=== PATIENT | male | born 1955 | race Caucasian/White ===

== ENCOUNTER 2018-04-14 02:29 | Emergency (ER) | payer SELFPAY ==
[~2018-04-14] VITALS: Ht 180.3 cm; Wt 75.0 kg
[2018-04-14 02:39] VITALS: BP 154/98; PULSE 88; RESP 20; TEMP 97.4; O2SAT 97
[2018-04-14 03:39] LABS: AUTOMATED NEUTROPHIL # 2.4 TH/MM3 (1.8-7.7); BASOPHIL # 0.1 TH/MM3 (0-0.2); BASOPHIL % 0.9 % (0.0-2.0); EOSINOPHIL # 0.3 TH/MM3 (0-0.4); EOSINOPHIL % 4.7 % (0.0-4.0); HEMATOCRIT 25.5 % (39.0-51.0); HEMOGLOBIN 7.1 GM/DL (13.0-17.0); LYMPH % 49.5 % (9.0-44.0); LYMPHOCYTE # 3.1 TH/MM3 (1.0-4.8); MEAN CELL VOLUME 58.9 FL (80.0-100.0); MEAN CORPUSCULAR HEMOGLOBIN 16.5 PG (27.0-34.0); MEAN PLATELET VOLUME 8.5 FL (7.0-11.0); MONO % 6.4 % (0.0-8.0); MONOCYTE # 0.4 TH/MM3 (0-0.9); NEUT % 38.5 % (16.0-70.0); PLATELET COUNT 376 TH/MM3 (150-450); RED BLOOD COUNT 4.32 MIL/MM3 (4.50-5.90); RED CELL DISTRIBUTION WIDTH 22.2 % (11.6-17.2); WHITE BLOOD COUNT 6.2 TH/MM3 (4.0-11.0)
[2018-04-14 03:42] LABS: MEAN CORPUSCULAR HGB CONC 27.9 % (32.0-36.0)
[2018-04-14 03:45] LABS: LACTIC ACID SEPSIS PROTOCOL 2.9 mmol/L (0.4-2.0)
[2018-04-14 03:50] LABS: ALBUMIN 2.9 GM/DL (3.4-5.0); AST (GOT) 41 U/L (15-37); BICARBONATE 24.8 MEQ/L (21.0-32.0); BLOOD UREA NITROGEN 7 MG/DL (7-18); CALCIUM 8.2 MG/DL (8.5-10.1); CHLORIDE 105 MEQ/L (98-107); CREATININE 0.67 MG/DL (0.60-1.30); GLOMERULAR FILTRATION RATE 120 ML/MIN (>89); GLUCOSE,RANDOM 92 MG/DL (74-106); SODIUM (NA) 141 MEQ/L (136-145)
[2018-04-14 03:53] LABS: ALKALINE PHOSPHATASE 89 U/L (45-117); ALT (GPT) 36 U/L (12-78); TOTAL BILIRUBIN ADULT 0.3 MG/DL (0.2-1.0); TOTAL PROTEIN 6.7 GM/DL (6.4-8.2)
--- NOTE | 2018-04-14 04:15 | PD ---
HPI Chief Complaint: Pain: Acute or Chronic Time Seen by Provider: 03:03 Travel History International Travel<30 days: No Contact w/Intl Traveler<30days: No Traveled to known affect area: No History of Present Illness HPI 62-year-old male patient presents to the ER today for right foot swelling and pain, he states that he has had problems with the pain in his right foot for several months, states that it had been ran over by his body, and that was several weeks ago, but he is coming in today because it is increasing in pain. He denies any fevers, shortness of breath, or other issues. Pain is noted to be aching and 5 out of 10. He had initially said he has chest pain but now he is telling me he has none. Modifying Factors: None Associated Signs & Symptoms: Right foot pain for several weeks, worsening, 5 out of 10 Risk Factors: None PFSH Past Medical History Diminished Hearing: Yes Hypertension: Yes Immunizations Current: Yes Tetanus Vaccination: Unknown Influenza Vaccination: No Past Surgical History Other Surgery: Yes (RIGHT FOOT SURGERY) Social History Alcohol Use: Yes Tobacco Use: Yes Substance Use: No Allergies-Medications (Allergen,Severity, Reaction): Coded Allergies: No Known Allergies (Unverified , 04/14/18) Reported Meds & Prescriptions Reported Meds & Active Scripts Active No Active Prescriptions or Reported Medications Review of Systems Except as stated in HPI: all other systems reviewed are Neg Physical Exam Narrative GENERAL: Well-developed elderly male patient currently in mild distress. Awake and oriented 3. SKIN: Focused skin assessment warm/dry. HEAD: Atraumatic. Normocephalic. EYES: Pupils equal and round. No scleral icterus. No injection or drainage. ENT: No nasal bleeding or discharge. Mucous membranes pink and moist. NECK: Trachea midline. No JVD. CARDIOVASCULAR: Regular rate and rhythm. No murmur appreciated. RESPIRATORY: No accessory muscle use. Clear to auscultation. Breath sounds equal bilaterally. GASTROINTESTINAL: Abdomen soft, non-tender, nondistended. Hepatic and splenic margins not palpable. MUSCULOSKELETAL: No obvious deformities. No clubbing. No cyanosis. There is significant pitting edema of both feet but more pronounced in the right. There is notable erythema especially of the right big toe, fairly tender to palpation with obvious underlying cellulitis. There is also a dark eschar over the medial part of the nail. No underlying subungual hematoma. There appears to be a paronychia there. NEUROLOGICAL: Awake and alert. No obvious cranial nerve deficits. Motor grossly within normal limits. Normal speech. PSYCHIATRIC: Appropriate mood and affect; insight and judgment normal. Data Data Last Documented VS Vital Signs Date Time Temp Pulse Resp B/P (MAP) Pulse Ox O2 Delivery O2 Flow Rate FiO2 04/14/18 04:31 97 Room Air 04/14/18 04:31 04/14/18 04:22 81 16 04/14/18 02:39 97.4 Orders Orders Sepsis Workup Initiated (04/14/18 ) Complete Blood Count With Diff (04/14/18 03:03) Comprehensive Metabolic Panel (04/14/18 03:03) Lactic Acid Sepsis Protocol (04/14/18 03:03) Blood Culture (04/14/18 03:03) Blood Glucose (04/14/18 03:03) Ecg Monitoring (04/14/18 03:03) Iv Access Insert/Monitor (04/14/18 03:03) Oximetry (04/14/18 03:03) Oxygen Administration (04/14/18 03:03) Foot, Complete ([id number]) (04/14/18 03:03) Sulfamet-Trimeth Ds 800-160 Mg (Bactrim (04/14/18 04:45) Labs Laboratory Tests Test 04/14/18 03:20 White Blood Count 6.2 TH/MM3 Red Blood Count 4.32 MIL/MM3 Hemoglobin 7.1 GM/DL Hematocrit 25.5 % Mean Corpuscular Volume 58.9 FL Mean Corpuscular Hemoglobin 16.5 PG Mean Corpuscular Hemoglobin Concent 27.9 % Red Cell Distribution Width 22.2 % Platelet Count 376 TH/MM3 Mean Platelet Volume 8.5 FL Neutrophils (%) (Auto) 38.5 % Lymphocytes (%) (Auto) 49.5 % Monocytes (%) (Auto) 6.4 % Eosinophils (%) (Auto) 4.7 % Basophils (%) (Auto) 0.9 % Neutrophils # (Auto) 2.4 TH/MM3 Lymphocytes # (Auto) 3.1 TH/MM3 Monocytes # (Auto) 0.4 TH/MM3 Eosinophils # (Auto) 0.3 TH/MM3 Basophils # (Auto) 0.1 TH/MM3 CBC Comment AUTO DIFF Differential Comment AUTO DIFF CONFIRMED Platelet Estimate NORMAL Platelet Morphology Comment NORMAL Basophilic Stippling MOD Ovalocytes 1+ Blood Urea Nitrogen 7 MG/DL Creatinine 0.67 MG/DL Random Glucose 92 MG/DL Total Protein 6.7 GM/DL Albumin 2.9 GM/DL Calcium Level 8.2 MG/DL Alkaline Phosphatase 89 U/L Aspartate Amino Transf (AST/SGOT) 41 U/L Alanine Aminotransferase (ALT/SGPT) 36 U/L Total Bilirubin 0.3 MG/DL Sodium Level 141 MEQ/L Potassium Level 3.6 MEQ/L Chloride Level 105 MEQ/L Carbon Dioxide Level 24.8 MEQ/L Anion Gap 11 MEQ/L Estimat Glomerular Filtration Rate 120 ML/MIN Lactic Acid Level 2.9 mmol/L [facility] Medical Decision Making Medical Screen Exam Complete: Yes Emergency Medical Condition: Yes Medical Record Reviewed: Yes Interpretation(s) Laboratory Tests Test 04/14/18 03:20 Red Blood Count 4.32 MIL/MM3 (4.50-5.90) Hemoglobin 7.1 GM/DL (13.0-17.0) Hematocrit 25.5 % (39.0-51.0) Mean Corpuscular Volume 58.9 FL (80.0-100.0) Mean Corpuscular Hemoglobin 16.5 PG (27.0-34.0) Mean Corpuscular Hemoglobin Concent 27.9 % (32.0-36.0) Red Cell Distribution Width 22.2 % (11.6-17.2) Lymphocytes (%) (Auto) 49.5 % (9.0-44.0) Eosinophils (%) (Auto) 4.7 % (0.0-4.0) Albumin 2.9 GM/DL (3.4-5.0) Calcium Level 8.2 MG/DL (8.5-10.1) Aspartate Amino Transf (AST/SGOT) 41 U/L (15-37) Lactic Acid Level 2.9 mmol/L (0.4-2.0) Last 24 hours Impressions Foot X-Ray 04/14/18 0303 Signed Impressions: CONCLUSION: Diffuse abnormal appearance of the bones. This is likely secondary to severe di suse osteopenia versus reflex synthetic dystrophy. There is a evidence of prior surgical repair of the medial malleolus and suspected collapse of the superior aspect of the calcaneus from prior fracture. Differential Diagnosis Foot cellulitis versus osteomyelitis versus paronychia versus contusion versus underlying fracture Narrative Course X-ray did not show obvious signs of acute fractures. He does have severe osteopenia. He has significant pitting edema both legs. It appears that he has an underlying paronychia. IP has been asked to drain the paronychia. He was given p.o. antibiotics in the ER for foot cellulitis and lab work otherwise shows significant anemia which patient states he has had in the past, had been told that he was low in iron. He denies any black stools or bleeding anywhere. This appears to be a more of a chronic issue and will need follow-up with her primary care doctor. Plan would be to release him with follow-up to primary care doctor and podiatry after drainage. Wound care instructions given. P.o. antibiotics given. Return for worsening in symptoms or pain, and as needed. The plan has been discussed with him and he states understanding. Diagnosis Primary Impression: Cellulitis of toe of right foot Additional Impression: Paronychia Med/Other Pt SpecificInfo: Prescription(s) given Scripts Sulfamethoxazole-Trimethoprim (Bactrim DS) 800-160 Mg Tab 1 TAB PO BID for Infection, #14 TAB 0 Refills Prov: Orlando Andino MD 04/14/18 Tramadol-Acetaminophen (Tramadol-Acetaminophen) 37.5-325 mg Tab 1 TAB PO Q6H Y for PAIN, #12 TAB 0 Refills Prov: Orlando Andino MD 04/14/18 Disposition: 01 DISCHARGE HOME Condition: Stable Orlando Andino MD Apr 14, 2018 04:15
[2018-04-14 04:22] VITALS: BP 135/63; PULSE 81; RESP 16; O2SAT 97
[2018-04-14 04:31] VITALS: O2SAT 97
--- NOTE | 2018-04-14 04:36 | RADRPT ---
EXAM DATE: 04/14/2018 3:54 AM EDT AGE/SEX: 62 years / Male INDICATIONS: Right great toe pain, swelling for 6 months CLINICAL DATA: This is the patient's initial encounter. Patient reports that signs and symptoms have been present for 4 - 6 months and indicates a pain score of 5/10. MEDICAL/SURGICAL HISTORY: . Gout . Prior right ankle surgery COMPARISON: No prior [place] exams available for comparison. FINDINGS: The bones are diffusely abnormal. There is lucency seen throughout most of the visualized bony struct ures. A fracture or area of periosteal reaction is not seen. There are linear metallic fixation devic e is seen over the medial malleolus region. There appears to be some flattening of the calcaneus pres umably from prior fracture. There is loss of Boehler's angle. There is soft tissue swelling at the f orefoot. CONCLUSION: Diffuse abnormal appearance of the bones. This is likely secondary to severe disuse osteopenia versus reflex synthetic dystrophy. There is a evidence of prior surgical repair of the medial malleolus and suspected collapse of the superior aspect of the calcaneus from prior fracture. Electronically signed by: Shad Amaro MD 04/14/2018 4:35 AM EDT
[2018-04-14] MEDS ORDERED: SULFAMETHOXAZOLE-TRIMETHOPRIM DS 800-160 MG TAB PO ONE (04:45)
[2018-04-14 04:53] LABS: OVALOCYTES 1+ (NORMAL)
[2018-04-14] MEDS ORDERED: TRAM-388 PO (05:03)
[2018-04-14] MEDS ORDERED: BACT800T5 PO (05:03)
--- NOTE | 2018-04-14 05:44 | PD ---
Physical Exam Date Seen by Provider: Apr 14, 2018 Time Seen by Provider: 04:41 Data Data Last Documented VS Vital Signs Date Time Temp Pulse Resp B/P (MAP) Pulse Ox O2 Delivery O2 Flow Rate FiO2 04/14/18 05:09 04/14/18 04:31 97 Room Air 04/14/18 04:22 81 16 04/14/18 02:39 97.4 Orders Orders Sepsis Workup Initiated (04/14/18 ) Complete Blood Count With Diff (04/14/18 03:03) Comprehensive Metabolic Panel (04/14/18 03:03) Lactic Acid Sepsis Protocol (04/14/18 03:03) Blood Culture (04/14/18 03:03) Blood Glucose (04/14/18 03:03) Ecg Monitoring (04/14/18 03:03) Iv Access Insert/Monitor (04/14/18 03:03) Oximetry (04/14/18 03:03) Oxygen Administration (04/14/18 03:03) Foot, Complete ([id number]) (04/14/18 03:03) Sulfamet-Trimeth Ds 800-160 Mg (Bactrim (04/14/18 04:45) Ed Discharge Order (04/14/18 05:08) Labs Laboratory Tests Test 04/14/18 03:20 White Blood Count 6.2 TH/MM3 Red Blood Count 4.32 MIL/MM3 Hemoglobin 7.1 GM/DL Hematocrit 25.5 % Mean Corpuscular Volume 58.9 FL Mean Corpuscular Hemoglobin 16.5 PG Mean Corpuscular Hemoglobin Concent 27.9 % Red Cell Distribution Width 22.2 % Platelet Count 376 TH/MM3 Mean Platelet Volume 8.5 FL Neutrophils (%) (Auto) 38.5 % Lymphocytes (%) (Auto) 49.5 % Monocytes (%) (Auto) 6.4 % Eosinophils (%) (Auto) 4.7 % Basophils (%) (Auto) 0.9 % Neutrophils # (Auto) 2.4 TH/MM3 Lymphocytes # (Auto) 3.1 TH/MM3 Monocytes # (Auto) 0.4 TH/MM3 Eosinophils # (Auto) 0.3 TH/MM3 Basophils # (Auto) 0.1 TH/MM3 CBC Comment AUTO DIFF Differential Comment AUTO DIFF CONFIRMED Platelet Estimate NORMAL Platelet Morphology Comment NORMAL Basophilic Stippling MOD Ovalocytes 1+ Blood Urea Nitrogen 7 MG/DL Creatinine 0.67 MG/DL Random Glucose 92 MG/DL Total Protein 6.7 GM/DL Albumin 2.9 GM/DL Calcium Level 8.2 MG/DL Alkaline Phosphatase 89 U/L Aspartate Amino Transf (AST/SGOT) 41 U/L Alanine Aminotransferase (ALT/SGPT) 36 U/L Total Bilirubin 0.3 MG/DL Sodium Level 141 MEQ/L Potassium Level 3.6 MEQ/L Chloride Level 105 MEQ/L Carbon Dioxide Level 24.8 MEQ/L Anion Gap 11 MEQ/L Estimat Glomerular Filtration Rate 120 ML/MIN Lactic Acid Level 2.9 mmol/L [facility] Medical Record Reviewed: Yes Supervised Visit with KARLA: Yes Interpretation(s) CBC & BMP Diagram 04/14/18 03:20 Total Protein 6.7, Albumin 2.9 L, Calcium Level 8.2 L, Alkaline Phosphatase 89, Aspartate Amino Transf (AST/SGOT) 41 H, Alanine Aminotransferase (ALT/SGPT) 36, Total Bilirubin 0.3 Last 24 hours Impressions Foot X-Ray 04/14/18 0303 Signed Impressions: CONCLUSION: Diffuse abnormal appearance of the bones. This is likely secondary to severe di suse osteopenia versus reflex synthetic dystrophy. There is a evidence of prior surgical repair of the medial malleolus and suspected collapse of the superior aspect of the calcaneus from prior fracture. Differential Diagnosis . Narrative Course I was asked to perform an incision and drainage. Procedures Procedure Narrative Incision and drainage right great toe paronychia: The patient's toe is prepped with alcohol. The patient is given a 1% lidocaine digital block. After adequate anesthesia an 11 blade scalpel is used to gently unroofed the paronychia which is on the medial aspect of the great toe. The skin base is healing well with good granulation. There is no evidence of an ingrown toenail. The nursing staff will cleanse and apply dressing to the toe. Patient tolerated procedure well. No complications. Diagnosis Primary Impression: Cellulitis of toe of right foot Additional Impression: Paronychia Patient Instructions: General Instructions Departure Forms: Tests/Procedures Scripts Sulfamethoxazole-Trimethoprim (Bactrim DS) 800-160 Mg Tab 1 TAB PO BID for Infection, #14 TAB 0 Refills Prov: Orlando Andino MD 04/14/18 Tramadol-Acetaminophen (Tramadol-Acetaminophen) 37.5-325 mg Tab 1 TAB PO Q6H Y for PAIN, #12 TAB 0 Refills Prov: Orlando Andino MD 04/14/18 Disposition: 01 DISCHARGE HOME Condition: Stable Benjamin Ruiz Apr 14, 2018 05:44
== END 2018-04-14 05:16 | disposition home or self-care (01) ==
LOC: NEPE 02:29
DX: L03.031 Cellulitis of right toe (principal)
CPT/HCPCS: 10060; 73630; 80053; 83605; 85025; 87040

== ENCOUNTER 2018-05-02 15:07 | Inpatient (IN) | payer MEDICAID ==
[~2018-05-02] VITALS: Ht 172.7 cm; Wt 80.1 kg
[2018-05-02] VITALS (7 sets, daily range): BP systolic 168–206; BP diastolic 68–77; PULSE 70–81; RESP 16–20; TEMP 97.4–98.6; O2SAT 95–99
[2018-05-02] MEDS: PANTOPRAZOLE SODIUM 40 MG VIAL IV PUSH SCH ×2 (09:00→22:08)
[~2018-05-02 15:07] MED LIST: BACT800T5 PO; TRAM-388 PO
--- NOTE | 2018-05-02 15:41 | PD ---
HPI Chief Complaint: Skin Problem Time Seen by Provider: 15:31 Travel History International Travel<30 days: No Contact w/Intl Traveler<30days: No Traveled to known affect area: No History of Present Illness HPI 62-year-old male presents the emergency department with ongoing pain, swelling, and nonhealing wound to the right great toe. Patient was seen here on April 14, and had a paronychia drained. He was placed on Bactrim and tramadol. Patient states symptoms have not improved. He denies fever, chills, or other symptoms. Patient states he is unable to bear weight on the right foot, and he has cramps if he keeps it elevated too long. Patient is a smoker, and has been told he had poor circulation in the past. Patient has pain 9 out of 10. There is no drainage from the great toe. There is no increased warmth. Patient denies any other symptoms. He has no known drug allergies. PFSH Past Medical History Diminished Hearing: Yes Hypertension: Yes Immunizations Current: Yes Tetanus Vaccination: Unknown Past Surgical History Other Surgery: Yes (RIGHT FOOT SURGERY) Social History Alcohol Use: Yes Tobacco Use: Yes Substance Use: No Allergies-Medications (Allergen,Severity, Reaction): Coded Allergies: No Known Allergies (Unverified , 05/02/18) Reported Meds & Prescriptions Reported Meds & Active Scripts Active No Active Prescriptions or Reported Medications Review of Systems Except as stated in HPI: all other systems reviewed are Neg General / Constitutional: No: Fever Eyes: No: Visual changes HENT: No: Headaches Cardiovascular: No: Chest Pain or Discomfort Respiratory: No: Shortness of Breath Gastrointestinal: No: Abdominal Pain Genitourinary: No: Dysuria Musculoskeletal: Positive: Arthralgias, Limited ROM, Pain Skin: Positive Lesions (See history of present illness), No Rash Neurologic: No: Weakness Psychiatric: No: Depression Endocrine: No: Polydipsia Hematologic/Lymphatic: No: Easy Bruising Physical Exam Narrative GENERAL: Patient appears in mild to moderate distress per SKIN: Warm and dry. Patient has significant pallor. Skin is dry. Patient has what appears to be cyanotic changes to the right great toe and dorsal foot. These areas are very tender with palpation. There appears to be an eschar to the lateral edge of the right great toe. There is no drainage or increased erythema or warmth. There is 1+ pitting edema to both feet. Pulses not appreciated by palpation on the right. HEAD: Atraumatic. Normocephalic. EYES: Pupils equal and round. No scleral icterus. No injection or drainage. ENT: No nasal bleeding or discharge. Mucous membranes pink and moist. Pharynx is clear. Airway is patent NECK: Trachea midline. Supple and nontender. CARDIOVASCULAR: Regular rate and rhythm. RESPIRATORY: No accessory muscle use. Clear to auscultation. Breath sounds equal bilaterally. GASTROINTESTINAL: Abdomen soft, non-tender, nondistended. Hepatic and splenic margins not palpable. MUSCULOSKELETAL: Extremities without clubbing, cyanosis, or edema. No obvious deformities. See skin. NEUROLOGICAL: Awake and alert. No obvious cranial nerve deficits. Motor grossly within normal limits. Five out of 5 muscle strength in the arms and legs. Normal speech. PSYCHIATRIC: Appropriate mood and affect; insight and judgment normal. Data Data Last Documented VS Vital Signs Date Time Temp Pulse Resp B/P (MAP) Pulse Ox O2 Delivery O2 Flow Rate FiO2 05/02/18 16:13 73 18 188/73 (111) 98 Room Air 05/02/18 15:13 97.4 Orders Orders Complete Blood Count With Diff (05/02/18 15:36) Comprehensive Metabolic Panel (05/02/18 15:36) Lactic Acid (05/02/18 15:36) Prothrombin Time / Inr (Pt) (05/02/18 15:36) Act Partial Throm Time (Ptt) (05/02/18 15:36) Iv Access Insert/Monitor (05/02/18 15:36) Ecg Monitoring (05/02/18 15:36) Oximetry (05/02/18 15:36) Morphine Inj (Morphine Inj) (05/02/18 15:45) Sodium Chloride 0.9% Flush (Ns Flush) (05/02/18 15:45) Electrocardiogram (05/02/18 15:36) Chest, Single Ap (05/02/18 15:36) Sodium Chlorid 0.9% 500 Ml Inj (Ns 500 M (05/02/18 15:45) Cta Runoff W Iv Contrast W 3d (05/02/18 ) Type And Screen (05/02/18 17:14) Red Blood Cells (Rbc) (05/02/18 17:14) Iohexol 350 Inj (Omnipaque 350 Inj) (05/02/18 18:38) Pantoprazole Inj (Protonix Inj) (05/02/18 19:30) Vancomycin Inj (Vancomycin Inj) (05/02/18 19:30) Piperacil-Tazo 3.375 Gm Premix (Zosyn 3. (05/02/18 19:30) Red Blood Cells (Rbc) (05/02/18 19:23) Sodium Chlor 0.9% 250 Ml Inj (Ns 250 Ml (05/02/18 19:30) Admit Order (Ed Use Only) (05/02/18 19:41) Labs Laboratory Tests Test 05/02/18 16:05 05/02/18 16:06 White Blood Count 9.9 TH/MM3 Red Blood Count 4.35 MIL/MM3 Hemoglobin 6.8 GM/DL Hematocrit 25.1 % Mean Corpuscular Volume 57.7 FL Mean Corpuscular Hemoglobin 15.7 PG Mean Corpuscular Hemoglobin Concent 27.1 % Red Cell Distribution Width 22.6 % Platelet Count 371 TH/MM3 Mean Platelet Volume 8.4 FL Neutrophils (%) (Auto) 63.0 % Lymphocytes (%) (Auto) 21.1 % Monocytes (%) (Auto) 14.0 % Eosinophils (%) (Auto) 1.2 % Basophils (%) (Auto) 0.7 % Neutrophils # (Auto) 6.2 TH/MM3 Lymphocytes # (Auto) 2.1 TH/MM3 Monocytes # (Auto) 1.4 TH/MM3 Eosinophils # (Auto) 0.1 TH/MM3 Basophils # (Auto) 0.1 TH/MM3 CBC Comment DIFF FINAL Differential Comment Prothrombin Time 10.0 SEC Prothromb Time International Ratio 1.0 RATIO Activated Partial Thromboplast Time 24.2 SEC Blood Urea Nitrogen 9 MG/DL Creatinine 0.76 MG/DL Random Glucose 100 MG/DL Total Protein 7.6 GM/DL Albumin 3.2 GM/DL Calcium Level 8.6 MG/DL Alkaline Phosphatase 114 U/L Aspartate Amino Transf (AST/SGOT) 42 U/L Alanine Aminotransferase (ALT/SGPT) 32 U/L Total Bilirubin 0.8 MG/DL Sodium Level 137 MEQ/L Potassium Level 4.5 MEQ/L Chloride Level 104 MEQ/L Carbon Dioxide Level 24.3 MEQ/L Anion Gap 9 MEQ/L Estimat Glomerular Filtration Rate 104 ML/MIN Lactic Acid Level 1.8 mmol/L [facility] Medical Decision Making Medical Screen Exam Complete: Yes Emergency Medical Condition: Yes Medical Record Reviewed: Yes Differential Diagnosis Right great toe pain. Right foot pain. Vascular insufficiency. Osteomyelitis. Gangrene. Narrative Course Patient is medically stable at time of exam. Labs ordered including CBC, CMP, lactic acid, coagulation studies. Chest x-ray is ordered. CTA of the lower extremities is ordered with runoff to evaluate vascular integrity of the lower extremities. EKG is ordered showing normal sinus rhythm without significant ST changes CBC is significant for microcytic anemia with a hemoglobin of 6.8, hematocrit is 25.1. There is no significant leukocytosis or shift. Platelets are normal at 371 Coagulation studies are unremarkable. Chemistries are normal. Lactic acid is 1.8. Chest x-ray is unremarkable for acute findings per radiologist. Type and screen is ordered as well as 1 unit red blood cells. CTA with runoff of the lower extremities is still pending. 1900 hrs., the patient care is turned over to Ty Cardenas PA-C for final admission pending CT results. Patient is discussed and report given. Admitting Information Admitting Physician Requests: Admit Scripts No Active Prescriptions or Reported Meds Condition: Stable Jimy Noriega May 02, 2018 15:41
[2018-05-02] MEDS ORDERED: SODIUM CHLORID 0.9% 500 ML INJ 500 ML IV ONE (15:45)
[2018-05-02] MEDS ORDERED: SODIUM CHLORIDE 0.9% FLUSH 10 ML FLUSH IV FLUSH PRN ×2 (15:45→20:30)
[2018-05-02] MEDS ORDERED: MORPHINE SULFATE 4 MG/ML INJ IV PUSH ONE (15:45)
[2018-05-02 16:45] LABS: AUTOMATED NEUTROPHIL # 6.2 TH/MM3 (1.8-7.7); BASOPHIL # 0.1 TH/MM3 (0-0.2); BASOPHIL % 0.7 % (0.0-2.0); EOSINOPHIL # 0.1 TH/MM3 (0-0.4); EOSINOPHIL % 1.2 % (0.0-4.0); HEMATOCRIT 25.1 % (39.0-51.0); LYMPH % 21.1 % (9.0-44.0); LYMPHOCYTE # 2.1 TH/MM3 (1.0-4.8); MEAN CELL VOLUME 57.7 FL (80.0-100.0); MEAN CORPUSCULAR HEMOGLOBIN 15.7 PG (27.0-34.0); MEAN PLATELET VOLUME 8.4 FL (7.0-11.0); MONOCYTE # 1.4 TH/MM3 (0-0.9); PLATELET COUNT 371 TH/MM3 (150-450); RED BLOOD COUNT 4.35 MIL/MM3 (4.50-5.90); RED CELL DISTRIBUTION WIDTH 22.6 % (11.6-17.2); WHITE BLOOD COUNT 9.9 TH/MM3 (4.0-11.0)
--- NOTE | 2018-05-02 16:48 | RADRPT ---
EXAM DATE: 05/02/2018 4:09 PM EDT AGE/SEX: 62 years / Male INDICATIONS: Cough. CLINICAL DATA: This is the patient's initial encounter. Patient reports that signs and symptoms have been present for 3 days and indicates a pain score of 0/10. MEDICAL/SURGICAL HISTORY: None. None. COMPARISON: No prior exams available for comparison. FINDINGS: A single AP view of the chest demonstrates the lungs to be symmetrically aerated without evidence of mass, infiltrate or effusion. The cardiomediastinal contours are unremarkable. Osseous structures a re intact. CONCLUSION: No acute cardiopulmonary process. Electronically signed by: Shad Amaro MD 05/02/2018 4:47 PM EDT
[2018-05-02 16:59] LABS: MEAN CORPUSCULAR HGB CONC 27.1 % (32.0-36.0)
[2018-05-02 17:02] LABS: HEMOGLOBIN 6.8 GM/DL (13.0-17.0)
[2018-05-02 17:09] LABS: ALBUMIN 3.2 GM/DL (3.4-5.0); AST (GOT) 42 U/L (15-37); BICARBONATE 24.3 MEQ/L (21.0-32.0); BLOOD UREA NITROGEN 9 MG/DL (7-18); CALCIUM 8.6 MG/DL (8.5-10.1); CHLORIDE 104 MEQ/L (98-107); CREATININE 0.76 MG/DL (0.60-1.30); GLOMERULAR FILTRATION RATE 104 ML/MIN (>89); GLUCOSE,RANDOM 100 MG/DL (74-106); SODIUM (NA) 137 MEQ/L (136-145)
[2018-05-02 17:14] LABS: ALKALINE PHOSPHATASE 114 U/L (45-117); ALT (GPT) 32 U/L (12-78); TOTAL BILIRUBIN ADULT 0.8 MG/DL (0.2-1.0); TOTAL PROTEIN 7.6 GM/DL (6.4-8.2)
[2018-05-02] MEDS ORDERED: IOHEXOL 350 MG/ML 10 ML VIAL (for RAD DIAG) IVCONTRAST ONE (18:38)
--- NOTE | 2018-05-02 19:21 | PD ---
Data Data Last Documented VS Vital Signs Date Time Temp Pulse Resp B/P (MAP) Pulse Ox O2 Delivery O2 Flow Rate FiO2 05/02/18 16:13 73 18 188/73 (111) 98 Room Air 05/02/18 15:13 97.4 Orders Orders Complete Blood Count With Diff (05/02/18 15:36) Comprehensive Metabolic Panel (05/02/18 15:36) Lactic Acid (05/02/18 15:36) Prothrombin Time / Inr (Pt) (05/02/18 15:36) Act Partial Throm Time (Ptt) (05/02/18 15:36) Iv Access Insert/Monitor (05/02/18 15:36) Ecg Monitoring (05/02/18 15:36) Oximetry (05/02/18 15:36) Morphine Inj (Morphine Inj) (05/02/18 15:45) Sodium Chloride 0.9% Flush (Ns Flush) (05/02/18 15:45) Electrocardiogram (05/02/18 15:36) Chest, Single Ap (05/02/18 15:36) Sodium Chlorid 0.9% 500 Ml Inj (Ns 500 M (05/02/18 15:45) Cta Runoff W Iv Contrast W 3d (05/02/18 ) Type And Screen (05/02/18 17:14) Red Blood Cells (Rbc) (05/02/18 17:14) Iohexol 350 Inj (Omnipaque 350 Inj) (05/02/18 18:38) Pantoprazole Inj (Protonix Inj) (05/02/18 19:30) Vancomycin Inj (Vancomycin Inj) (05/02/18 19:30) Piperacil-Tazo 3.375 Gm Premix (Zosyn 3. (05/02/18 19:30) Red Blood Cells (Rbc) (05/02/18 19:23) Blood Product Administration (05/02/18 19:23) Sodium Chlor 0.9% 250 Ml Inj (Ns 250 Ml (05/02/18 19:30) Admit Order (Ed Use Only) (05/02/18 19:41) Labs Laboratory Tests Test 05/02/18 16:05 05/02/18 16:06 White Blood Count 9.9 TH/MM3 Red Blood Count 4.35 MIL/MM3 Hemoglobin 6.8 GM/DL Hematocrit 25.1 % Mean Corpuscular Volume 57.7 FL Mean Corpuscular Hemoglobin 15.7 PG Mean Corpuscular Hemoglobin Concent 27.1 % Red Cell Distribution Width 22.6 % Platelet Count 371 TH/MM3 Mean Platelet Volume 8.4 FL Neutrophils (%) (Auto) 63.0 % Lymphocytes (%) (Auto) 21.1 % Monocytes (%) (Auto) 14.0 % Eosinophils (%) (Auto) 1.2 % Basophils (%) (Auto) 0.7 % Neutrophils # (Auto) 6.2 TH/MM3 Lymphocytes # (Auto) 2.1 TH/MM3 Monocytes # (Auto) 1.4 TH/MM3 Eosinophils # (Auto) 0.1 TH/MM3 Basophils # (Auto) 0.1 TH/MM3 CBC Comment DIFF FINAL Differential Comment Prothrombin Time 10.0 SEC Prothromb Time International Ratio 1.0 RATIO Activated Partial Thromboplast Time 24.2 SEC Blood Urea Nitrogen 9 MG/DL Creatinine 0.76 MG/DL Random Glucose 100 MG/DL Total Protein 7.6 GM/DL Albumin 3.2 GM/DL Calcium Level 8.6 MG/DL Alkaline Phosphatase 114 U/L Aspartate Amino Transf (AST/SGOT) 42 U/L Alanine Aminotransferase (ALT/SGPT) 32 U/L Total Bilirubin 0.8 MG/DL Sodium Level 137 MEQ/L Potassium Level 4.5 MEQ/L Chloride Level 104 MEQ/L Carbon Dioxide Level 24.3 MEQ/L Anion Gap 9 MEQ/L Estimat Glomerular Filtration Rate 104 ML/MIN Lactic Acid Level 1.8 mmol/L MDM Medical Record Reviewed: Yes Supervised Visit with KARLA: No Narrative Course See previous providers notes for complete history of present illness. This is a 62-year-old male smoker who presents with chronic pain and wound to the right great toe for 6 months. Seen here in April 14 where reportedly he had a paronychia which was drained and he was started on Bactrim. He presents today with persistent pain in the right great toe. He also has symptoms consistent with claudication, pain in the calves and thighs that is worse with walking. His lab work reveals a hemoglobin of 6.8. 2 units packed red blood cells ordered. According to his girlfriend he has looked pale over the past month and he is also been complaining of worsening fatigue over the past month. He denies any black or tarry stools or hematochezia or hematemesis. He takes Goody powder approximately 6 times per week. On rectal examination she does have brown/red tinged heme positive stool. On examination he has dopplerable dorsalis pedis and posterior tibial pulses. At this point time the plan is to admit the patient for GI bleed, cellulitis of the right great toe, CTA was previously ordered and is currently pending. Diagnosis Primary Impression: Cellulitis of toe of right foot Additional Impressions: Peripheral vascular disease GI bleed Admitting Information Admitting Physician Requests: Admit Scripts No Active Prescriptions or Reported Meds Condition: Stable Ty Cardenas May 02, 2018 19:21
[2018-05-02] MEDS ORDERED: PIPERACIL-TAZO 3.375 GM PREMIX 50 ML IV ONE (19:30)
[2018-05-02] MEDS ORDERED: SODIUM CHLOR 0.9% 250 ML INJ 250 ML IV ONE (19:30)
[2018-05-02] MEDS ORDERED: PANTOPRAZOLE SODIUM 40 MG VIAL IVP ONE (19:30)
[2018-05-02] MEDS ORDERED: VANCOMYCIN INJ 1,000 MG in SODIUM CHLOR 0.9% 250 ML INJ 250 ML IV ONE (19:30)
[2018-05-02] MEDS ORDERED: Vancomycin Consult Pharmacy 1 EA OTHER SCH (20:30)
[2018-05-02] MEDS ORDERED: ACETAMINOPHEN 325 MG TAB PO PRN (20:30)
[2018-05-02] MEDS ORDERED: NALOXONE HCL 0.4 MG/ML AMP IV PUSH PRN (20:30)
--- NOTE | 2018-05-02 21:09 | RADRPT ---
EXAM DATE: 05/02/2018 8:30 PM EDT AGE/SEX: 62 years / Male INDICATIONS: Right foot swelling and discoloration. No improvement with antibiotics. CLINICAL DATA: This is the patient's initial encounter. Patient reports that signs and symptoms have been present for > 1 year and indicates a pain score of 10/10. MEDICAL/SURGICAL HISTORY: Hypertension. . Right foot surgery. RADIATION DOSE: 9.39 CTDI (mGy) COMPARISON: No prior exams available for comparison. TECHNIQUE: Volumetric scanning was performed using a multi-row detector CT scanner during bolus infu carisa of 100 ml Omnipaque 350 (iohexol) nonionic water-soluble contrast as a single exam dose. The data was post processed with a variety of visualization algorithms including full volume maximum inte nsity projection, multi-planar sliding thin slab reformation, curved planar reformation, and surface rendering techniques. Using automated exposure control and adjustment of the mA and/or kV according to patient size, radiation dose was kept as low as reasonably achievable to obtain optimal diagnostic quality images. DICOM format image data is available electronically for review and comparison. FINDINGS: Abdominal Aorta: Diffuse atherosclerotic changes without aneurysmal dilation. The proximal celiac a nd superior mesenteric arteries are patent and normal in diameter. There are solitary renal arteries bilaterally with mild atherosclerotic changes. Bifurcation: Atherosclerotic changes of the common iliac arteries. Right Pelvis: There is occlusion of the right external iliac artery . Diffuse atherosclerotic change s. Common femoral artery is patent. Left Pelvis: Extensive atherosclerotic changes of the left common iliac artery and external iliac ar richard without significant stenosis. Right Thigh: Extensive atherosclerotic changes with multifocal areas of mild narrowing. There is occ lusion of the distal right common femoral artery and right superficial profundus artery. Left Thigh: Extensive atherosclerotic changes with multifocal areas of mild narrowing. Right Knee: Diffuse atherosclerotic changes. There is reconstitution of the popliteal artery with ex tensive atherosclerotic changes. Left Knee: The distal femoral and popliteal arteries are patent with extensive atherosclerotic jorgensen es. Right Leg: The trifurcation is intact. Left Leg: The trifurcation is intact. CONCLUSION: 1. Occlusion of the right external iliac artery, distal right common femoral artery and right superf icial fundus artery with reconstitution of the right popliteal artery.. 2. Extensive atherosclerotic changes/peripheral vascular disease. Electronically signed by: Nigel Guido MD 05/02/2018 9:07 PM EDT
--- NOTE | 2018-05-02 21:35 | HHI.HP ---
[facility] Service [facility] Primary Care Physician No Primary Care Physician Admission Diagnosis GI bleed, cellulitis right foot Diagnoses: Travel History International Travel<30 Days: No Contact w/Intl Traveler <30 Da: No Traveled to Known Affected Are: No History of Present Illness 62-year-old male with a past medical history significant for hypertension presents the emergency department for the evaluation of a nonhealing right great toe cellulitis. The patient was seen on 04/14/18 where he had an I&D of the right great toe paronychia. He was then prescribed a 7 day course of Bactrim with which he was compliant. The patient reports that despite this the swelling and redness of his right foot has worsened and he is now in excruciating pain with ambulation. He denies any systemic symptoms such as fever/chills. The patient reports the wound is approximately 1-year-old and will at times be worse than other times get better. He has not yet seen a student success counselor but is working with his primary care physician to do so. Additionally, the patient reports pain in his calves with walking. On arrival to the emergency department, the patient's hemoglobin was 6.8. He was Hemoccult positive with red/brown stool. His girlfriend reports that he has been looking more pale recently and the patient endorses increased fatigue. He denies any lightheadedness or dizziness. He denies any melena or hematemesis. No chest pain or shortness of breath. No abdominal pain. No nausea/vomiting/ diarrhea. No lateralizing signs/symptoms. Review of Systems Except as stated in HPI: all other systems reviewed are Neg Past Family Social History Past Medical History Hypertension Past Surgical History Right foot repair secondary to trauma Reported Medications Reported Meds & Active Scripts Active No Active Prescriptions or Reported Medications Allergies: Coded Allergies: No Known Allergies (Unverified , 05/02/18) Family History Negative for CAD/DM Social History Smokes approximately 1 pack per day. Occasional alcohol. Denies illicit drugs. Physical Exam Vital Signs Vital Signs Date Time Temp Pulse Resp B/P (MAP) Pulse Ox O2 Delivery O2 Flow Rate FiO2 05/02/18 21:14 98.0 78 20 176/68 (104) 98 Room Air 05/02/18 19:48 81 20 172/77 (108) 98 Room Air 05/02/18 16:13 73 18 188/73 (111) 98 Room Air 05/02/18 15:13 97.4 72 16 170/72 (104) 99 Physical Exam GENERAL: male sitting up in bed SKIN: Tender right great toe with eschar on the lateral edge and surrounding erythema and edema. No drainage noted. HEAD: Atraumatic. Normocephalic. No temporal or scalp tenderness. EYES: Pupils equal round and reactive. Extraocular motions intact. No scleral icterus. No injection or drainage. ENT: Nose without bleeding, purulent drainage or septal hematoma. Throat without erythema, tonsillar hypertrophy or exudate. Uvula midline. Airway patent. NECK: Trachea midline. No JVD or lymphadenopathy. Supple, nontender, no meningeal signs. CARDIOVASCULAR: Regular rate and rhythm without murmurs, gallops, or rubs. RESPIRATORY: Clear to auscultation. Breath sounds equal bilaterally. No wheezes , rales, or rhonchi. GASTROINTESTINAL: Abdomen soft, non-tender, nondistended. No hepato-splenomegaly , or palpable masses. No guarding. MUSCULOSKELETAL: Extremities without clubbing, cyanosis, or edema. No joint tenderness, effusion, or edema noted. No calf tenderness. Right foot warm with full range of motion. NEUROLOGICAL: Awake and alert. Cranial nerves II through XII intact. Motor and sensory grossly within normal limits. Normal speech. Laboratory Laboratory Tests Test 05/02/18 16:05 05/02/18 16:06 White Blood Count 9.9 Red Blood Count 4.35 Hemoglobin 6.8 Hematocrit 25.1 Mean Corpuscular Volume 57.7 Mean Corpuscular Hemoglobin 15.7 Mean Corpuscular Hemoglobin Concent 27.1 Red Cell Distribution Width 22.6 Platelet Count 371 Mean Platelet Volume 8.4 Neutrophils (%) (Auto) 63.0 Lymphocytes (%) (Auto) 21.1 Monocytes (%) (Auto) 14.0 Eosinophils (%) (Auto) 1.2 Basophils (%) (Auto) 0.7 Neutrophils # (Auto) 6.2 Lymphocytes # (Auto) 2.1 Monocytes # (Auto) 1.4 Eosinophils # (Auto) 0.1 Basophils # (Auto) 0.1 CBC Comment DIFF FINAL Differential Comment Prothrombin Time 10.0 Prothromb Time International Ratio 1.0 Activated Partial Thromboplast Time 24.2 Blood Urea Nitrogen 9 Creatinine 0.76 Random Glucose 100 Total Protein 7.6 Albumin 3.2 Calcium Level 8.6 Alkaline Phosphatase 114 Aspartate Amino Transf (AST/SGOT) 42 Alanine Aminotransferase (ALT/SGPT) 32 Total Bilirubin 0.8 Sodium Level 137 Potassium Level 4.5 Chloride Level 104 Carbon Dioxide Level 24.3 Anion Gap 9 Estimat Glomerular Filtration Rate 104 Lactic Acid Level 1.8 Date/Time Source Procedure Growth Status 05/02/18 20:00 Wound Toe Gram Stain Pending Received 05/02/18 20:00 Wound Toe Wound Culture Pending Received Result Diagram: 05/02/18 1605 05/02/18 1605 Jose VTE Risk Assessment Jose VTE Risk Assessment: Mod/High Risk (score >= 2) Caprini Risk Assessment Model Point Value = 1 Point Value = 2 Point Value = 3 Point Value = 5 Age 41-60 Minor surgery BMI > 25 kg/m2 Swollen legs Varicose veins or History of unexplained or recurrent spontaneous Oral contraceptives or hormone replacement Sepsis (< 1 month) Serious lung disease, including pneumonia (< 1 month) Abnormal pulmonary function Acute myocardial infarction Congestive heart failure (< 1 month) History of inflammatory bowel disease Medical patient at bed rest Age 61-74 Arthroscopic surgery Major open surgery (> 45 min) Laparoscopic surgery (> 45 min) Malignancy Confined to bed (> 72 hours) Immobilizing plaster cast Central venous access Age >= 75 History of VTE Family history of VTE Factor V Leiden Prothrombin [id number] Lupus anticoagulant Anticardiolipin antibodies Elevated serum homocysteine Heparin-induced thrombocytopenia Other congenital or acquired thrombophilia Stroke (< 1 month) Elective arthroplasty Hip, pelvis, or leg fracture Acute spinal cord injury (< 1 month) Prophylaxis Regimen Total Risk Factor Score Risk Level Prophylaxis Regimen 0-1 Low Early ambulation 2 Moderate Order ONE of the following: *Sequential Compression Device (SCD) *Heparin 5000 units SQ BID 3-4 Higher Order ONE of the following medications: *Heparin 5000 units SQ TID *Enoxaparin/Lovenox 40 mg SQ daily (WT < 150 kg, CrCl > 30 mL/min) *Enoxaparin/Lovenox 30 mg SQ daily (WT < 150 kg, CrCl > 10-29 mL/min) *Enoxaparin/Lovenox 30 mg SQ BID (WT < 150 kg, CrCl > 30 mL/min) AND/OR *Sequential Compression Device (SCD) 5 or more Highest Order ONE of the following medications: *Heparin 5000 units SQ TID (Preferred with Epidurals) *Enoxaparin/Lovenox 40 mg SQ daily (WT < 150 kg, CrCl > 30 mL/min) *Enoxaparin/Lovenox 30 mg SQ daily (WT < 150 kg, CrCl > 10-29 mL/min) *Enoxaparin/Lovenox 30 mg SQ BID (WT < 150 kg, CrCl > 30 mL/min) AND *Sequential Compression Device (SCD) Assessment and Plan Assessment and Plan Assessment/plan: 1. Cellulitis failed outpatient treatment/peripheral vascular disease/ claudication Patient with cellulitis that is persistent despite compliance with Bactrim Vancomycin/Zosyn Podiatry consulted, appreciate assistance CTA significant for occlusion of the right external iliac artery, distal right common femoral artery and right superficial fundus artery with reconstitution of the right popliteal artery. Patient with symptoms consistent with claudication vascular surgery consulted, appreciate recommendations. 2. GI bleed/symptomatic anemia Patient Hemoccult-positive in the ED with severe anemia Transfuse 2 units packed red blood cells Gastroenterology consulted, appreciate assistance N.p.o. IV Protonix 3. Hypertension Patient not on any antihypertensives at this time As needed clonidine FEN N.p.o. Electrolytes: Monitor and replete as needed NS at 100 cc/hour Holding pharmacologic anticoagulation for possible procedure Physician Certification 2 Midnight Certification Type: Admission for Inpatient Services Order for Inpatient Services The services are ordered in accordance with Medicare regulations or non- Medicare payer requirements, as applicable. In the case of services not specified as inpatient-only, they are appropriately provided as inpatient services in accordance with the 2-midnight benchmark. Estimated LOS (days): 2 2 days is the estimated time the patient will need to remain in the hospital, assuming treatment plan goals are met and no additional complications. Post-Hospital Plan: Not yet determined Tasha Garcia MD May 02, 2018 21:35
[2018-05-02] MEDS: MORPHINE SULFATE 4 MG/ML INJ IV PUSH PRN (22:09)
[2018-05-02] MEDS: cloNIDine HCL 0.1 MG TAB PO PRN (23:10)
[2018-05-02] MEDS: SODIUM CHLOR 0.9% 1000 ML INJ 1,000 ML IV SCH (23:10)
[2018-05-02] MEDS: SODIUM CHLORIDE 0.9% FLUSH 10 ML FLUSH IV FLUSH SCH (23:11)
[2018-05-03] VITALS (12 sets, daily range): BP systolic 154–197; BP diastolic 71–90; PULSE 53–69; RESP 17–18; TEMP 97.9–98.8; O2SAT 95–97
[2018-05-03] MEDS: PIPERACIL-TAZO 3.375 GM PREMIX 50 ML IV SCH ×4 (02:15→21:00)
[2018-05-03 05:50] LABS: AUTOMATED NEUTROPHIL # 4.3 TH/MM3 (1.8-7.7); BASOPHIL # 0.1 TH/MM3 (0-0.2); EOSINOPHIL # 0.3 TH/MM3 (0-0.4); EOSINOPHIL % 3.9 % (0.0-4.0); HEMATOCRIT 28.5 % (39.0-51.0); HEMOGLOBIN 8.4 GM/DL (13.0-17.0); MEAN CELL VOLUME 62.8 FL (80.0-100.0); MEAN CORPUSCULAR HEMOGLOBIN 18.6 PG (27.0-34.0); MEAN PLATELET VOLUME 8.7 FL (7.0-11.0); MONO % 13.5 % (0.0-8.0); NEUT % 55.6 % (16.0-70.0); PLATELET COUNT 308 TH/MM3 (150-450); RED BLOOD COUNT 4.54 MIL/MM3 (4.50-5.90); RED CELL DISTRIBUTION WIDTH 28.9 % (11.6-17.2); WHITE BLOOD COUNT 7.8 TH/MM3 (4.0-11.0)
[2018-05-03 05:58] LABS: MEAN CORPUSCULAR HGB CONC 29.6 % (32.0-36.0)
[2018-05-03 06:19] LABS: BICARBONATE 24.7 MEQ/L (21.0-32.0); CALCIUM 8.1 MG/DL (8.5-10.1); CREATININE 0.7 MG/DL (0.60-1.30)
--- NOTE | 2018-05-03 07:51 | PD.VS.CON ---
History of Present Illness Chief Complaint: R foot pain, toe tissue loss Consult Requested by: ED History of Present Illness 62 yo male with R LE tissue loss that has been present for over a month. + foot pain. Had trauma to great toe that precipitated event. Atherosclerotic risk factors of known PAD, tobacco, and HTN. In ED because of foot pain but also found to have anemia and suspicion for GI source, of which pt was not previously aware. Last colonoscopy 5 years ago according to him. 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 [facility] Family History [place] Home Medications Discontinued Scripts Sulfamethoxazole-Trimethoprim (Bactrim DS) 800-160 Mg Tab, 1 TAB PO BID for Infection, #14 TAB 0 Refills Prov:Orlando Andino MD 04/14/18 Tramadol-Acetaminophen (Tramadol-Acetaminophen) 37.5-325 mg Tab, 1 TAB PO Q6H Y for PAIN, #12 TAB 0 Refills Prov:Orlando Andino MD 04/14/18 Coded Allergies: No Known Allergies (Unverified , 05/02/18) Review of Systems Constitutional: DENIES: Fever, Chills, Change in appetite Cardiovascular: DENIES: Chest pain, Palpitations, Syncope, Dyspnea on Exertion , PND, Lower Extremity Edema, Orthopnea, Claudication Physical Exam Vitals/I&O Date Time Temp Pulse Resp B/P (MAP) Pulse Ox O2 Delivery O2 Flow Rate FiO2 05/03/18 02:40 98.2 69 18 172/74 95 05/03/18 02:00 98.1 67 18 178/74 96 05/03/18 02:00 98.3 67 18 178/74 96 05/02/18 23:40 98.6 70 17 168/73 95 05/02/18 23:20 98.6 70 17 206/77 (120) 95 05/02/18 22:54 98.4 73 17 173/74 96 05/02/18 21:14 98.0 78 20 176/68 (104) 98 Room Air 05/02/18 19:48 81 20 172/77 (108) 98 Room Air 05/02/18 16:13 73 18 188/73 (111) 98 Room Air 05/02/18 15:13 97.4 72 16 170/72 (104) 99 05/03/18 05/03/18 05/03/18 07:00 15:00 23:00 Intake Total 890 ml Balance 890 ml Neuro: alert, oriented, no distress HEENT: NC/AT Neck: no JVD Heart: reg rate, no M Lungs: clear B Abdomen: nontender Vascular: palpable L femoral pulse and no R femoral pulse no R pedal pulse. Extremities: R hallux erythematous and eschar on dorsum proximal to nail bed. Laboratory Tests Test 05/02/18 16:05 05/02/18 16:06 05/03/18 05:32 White Blood Count 9.9 7.8 Red Blood Count 4.35 4.54 Hemoglobin 6.8 8.4 Hematocrit 25.1 28.5 Mean Corpuscular Volume 57.7 62.8 Mean Corpuscular Hemoglobin 15.7 18.6 Mean Corpuscular Hemoglobin Concent 27.1 29.6 Red Cell Distribution Width 22.6 28.9 Platelet Count 371 308 Mean Platelet Volume 8.4 8.7 Neutrophils (%) (Auto) 63.0 55.6 Lymphocytes (%) (Auto) 21.1 26.0 Monocytes (%) (Auto) 14.0 13.5 Eosinophils (%) (Auto) 1.2 3.9 Basophils (%) (Auto) 0.7 1.0 Neutrophils # (Auto) 6.2 4.3 Lymphocytes # (Auto) 2.1 2.0 Monocytes # (Auto) 1.4 1.0 Eosinophils # (Auto) 0.1 0.3 Basophils # (Auto) 0.1 0.1 CBC Comment DIFF FINAL AUTO DIFF Differential Comment Prothrombin Time 10.0 Prothromb Time International Ratio 1.0 Activated Partial Thromboplast Time 24.2 Blood Urea Nitrogen 9 8 Creatinine 0.76 0.70 Random Glucose 100 87 Total Protein 7.6 Albumin 3.2 Calcium Level 8.6 8.1 Alkaline Phosphatase 114 Aspartate Amino Transf (AST/SGOT) 42 Alanine Aminotransferase (ALT/SGPT) 32 Total Bilirubin 0.8 Sodium Level 137 137 Potassium Level 4.5 3.6 Chloride Level 104 103 Carbon Dioxide Level 24.3 24.7 Anion Gap 9 9 Estimat Glomerular Filtration Rate 104 114 Lactic Acid Level 1.8 Date/Time Source Procedure Growth Status 05/02/18 20:00 Wound Toe Gram Stain Pending Received 05/02/18 20:00 Wound Toe Wound Culture Pending Received Last 48 hours Impressions Chest X-Ray 05/02/18 1536 Signed Impressions: CONCLUSION: No acute cardiopulmonary process. Aorta w/Runoff CTA 05/02/18 0000 Signed Impressions: CONCLUSION: 1. Occlusion of the right external iliac artery, distal right common femoral a rtery and right superficial fundus artery with reconstitution of the right popl iteal artery.. 2. Extensive atherosclerotic changes/peripheral vascular disease. Assessment and Plan Plan PAD and non-healing R LE wound, needs revascularization 1. Continue GI work-up as any vascular intervention will require intra- procedural systemic anticoagulation 2. Will schedule R groin reconstruction, angio and possible distal bypass once GI work-up completed- potentially next week 3. CV risk factor modification and medical management: needs ASA, statin; I also discussed smoking cessation with him will follow Glenroy Ly MD FACS [employer] web application developer [facility] - [facility] V[facility] Surgery at [facility] [phone] Glenroy Ly MD May 03, 2018 07:51
[2018-05-03] MEDS: SODIUM CHLOR 0.9% 1000 ML INJ 1,000 ML IV SCH ×2 (08:14→21:01)
[2018-05-03] MEDS: SODIUM CHLORIDE 0.9% FLUSH 10 ML FLUSH IV FLUSH SCH ×2 (08:14→21:00)
[2018-05-03] MEDS: PANTOPRAZOLE SODIUM 40 MG VIAL IV PUSH SCH ×2 (08:14→21:00)
[2018-05-03] MEDS: MORPHINE SULFATE 4 MG/ML INJ IV PUSH PRN ×3 (08:21→22:36)
[2018-05-03] MEDS ORDERED: INFLUENZA VIRUS VACCINE (QUADRIVALENT) 0.5 ML SYR IM ONE (09:00)
[2018-05-03 09:24] LABS: OVALOCYTES 1+ (NORMAL)
--- NOTE | 2018-05-03 09:49 | PD.CONS ---
HPI History of Present Illness This is a 62 year old M with PMH significant for HTN who presented to the ER with complaints of right great toe pain and infection. Pt had recent I&D for right great toe paronychia, finished 7 day course of Bactrim, and reports that pain and infection are not improving. During work up in ER pt was found to have a hgb on 6.8, labs reviewed from previous ER visist on 04/14 and hgb was 7.1 at that time. Pt denies any GI symptoms including nausea, vomiting, acid reflux, heartburn, abdominal pain, unintentional weight loss, constipation, diarrhea, blood in stool. Denies history of anemia, has never had blood transfusions, B12 or iron supplements. Has never had EGD. Last colonoscopy approximately 2 years ago in [place] and states exam was normal. Unknown family history, pt is adopted. Pt reports drinking a gallon of whiskey a week. Smokes a PPD. Also reports use of BC powder, frequency varies. Denies illicit drug use. (Laura Barajas) PFSH Past Medical History Hypertension Past Surgical History Right foot repair secondary to trauma Colonoscopy (Laura Barajas) Coded Allergies: No Known Allergies (Unverified , 05/02/18) Family History Negative for CAD/DM Social History Smokes approximately 1 pack per day. Drinks a gallon of whiskey per week. Denies illicit drugs. (Laura Barajas) Review of Systems Gastrointestinal: DENIES: Abdominal pain, Black stools, Bloody stools, Constipation, Diarrhea, Nausea, Vomiting, Difficulty Swallowing, Anorexia, Odynophagia, Swelling of Abdomen, Heartburn, Hematemesis (Laura Barajas) GI Exam Vitals I&O Vital Signs Date Time Temp Pulse Resp B/P (MAP) Pulse Ox O2 Delivery O2 Flow Rate FiO2 05/03/18 08:00 98.4 62 18 189/81 (117) 96 05/03/18 02:40 98.2 69 18 172/74 95 05/03/18 02:00 98.1 67 18 178/74 96 05/03/18 02:00 98.3 67 18 178/74 96 05/02/18 23:40 98.6 70 17 168/73 95 05/02/18 23:20 98.6 70 17 206/77 (120) 95 05/02/18 22:54 98.4 73 17 173/74 96 05/02/18 21:14 98.0 78 20 176/68 (104) 98 Room Air 05/02/18 19:48 81 20 172/77 (108) 98 Room Air 05/02/18 16:13 73 18 188/73 (111) 98 Room Air 05/02/18 15:13 97.4 72 16 170/72 (104) 99 I/O 05/02/18 05/02/18 05/02/18 05/03/18 05/03/18 05/03/18 07:00 15:00 23:00 07:00 15:00 23:00 Intake Total 530 ml 890 ml 50 ml Balance 530 ml 890 ml 50 ml Intake IV Total 500 ml 50 ml Packed Cells 800 ml Blood Product IV Normal Saline Flush 30 ml 90 ml Imaging Last Impressions Chest X-Ray 05/02/18 1536 Signed Impressions: CONCLUSION: No acute cardiopulmonary process. Aorta w/Runoff CTA 05/02/18 0000 Signed Impressions: CONCLUSION: 1. Occlusion of the right external iliac artery, distal right common femoral a rtery and right superficial fundus artery with reconstitution of the right popl iteal artery.. 2. Extensive atherosclerotic changes/peripheral vascular disease. Laboratory Test 05/02/18 16:05 05/02/18 16:06 05/03/18 05:32 White Blood Count 9.9 TH/MM3 7.8 TH/MM3 Red Blood Count 4.35 MIL/MM3 4.54 MIL/MM3 Hemoglobin 6.8 GM/DL 8.4 GM/DL Hematocrit 25.1 % 28.5 % Mean Corpuscular Volume 57.7 FL 62.8 FL Mean Corpuscular Hemoglobin 15.7 PG 18.6 PG Mean Corpuscular Hemoglobin Concent 27.1 % 29.6 % Red Cell Distribution Width 22.6 % 28.9 % Platelet Count 371 TH/MM3 308 TH/MM3 Mean Platelet Volume 8.4 FL 8.7 FL Neutrophils (%) (Auto) 63.0 % 55.6 % Lymphocytes (%) (Auto) 21.1 % 26.0 % Monocytes (%) (Auto) 14.0 % 13.5 % Eosinophils (%) (Auto) 1.2 % 3.9 % Basophils (%) (Auto) 0.7 % 1.0 % Neutrophils # (Auto) 6.2 TH/MM3 4.3 TH/MM3 Lymphocytes # (Auto) 2.1 TH/MM3 2.0 TH/MM3 Monocytes # (Auto) 1.4 TH/MM3 1.0 TH/MM3 Eosinophils # (Auto) 0.1 TH/MM3 0.3 TH/MM3 Basophils # (Auto) 0.1 TH/MM3 0.1 TH/MM3 CBC Comment DIFF FINAL AUTO DIFF Differential Comment AUTO DIFF CONFIRMED Prothrombin Time 10.0 SEC Prothromb Time International Ratio 1.0 RATIO Activated Partial Thromboplast Time 24.2 SEC Blood Urea Nitrogen 9 MG/DL 8 MG/DL Creatinine 0.76 MG/DL 0.70 MG/DL Random Glucose 100 MG/DL 87 MG/DL Total Protein 7.6 GM/DL Albumin 3.2 GM/DL Calcium Level 8.6 MG/DL 8.1 MG/DL Alkaline Phosphatase 114 U/L Aspartate Amino Transf (AST/SGOT) 42 U/L Alanine Aminotransferase (ALT/SGPT) 32 U/L Total Bilirubin 0.8 MG/DL Sodium Level 137 MEQ/L 137 MEQ/L Potassium Level 4.5 MEQ/L 3.6 MEQ/L Chloride Level 104 MEQ/L 103 MEQ/L Carbon Dioxide Level 24.3 MEQ/L 24.7 MEQ/L Anion Gap 9 MEQ/L 9 MEQ/L Estimat Glomerular Filtration Rate 104 ML/MIN 114 ML/MIN Lactic Acid Level 1.8 mmol/L Platelet Estimate NORMAL Platelet Morphology Comment NORMAL Ovalocytes 1+ Date/Time Source Procedure Growth Status 05/02/18 20:00 Wound Toe Gram Stain - Final Resulted 05/02/18 20:00 Wound Toe Wound Culture Pending Resulted Physical Examination HEENT: Normocephalic; atraumatic CHEST: Even/unlabored CARDIAC: RRR ABDOMEN: Soft, nondistended, nontender; bowel sounds active ROAD [employer]: Alert and oriented times three. (Laura Barajas) Assessment and Plan Plan Assessment: - Anemia- microcytic, hypochromic In ER pt was found to have a hgb on 6.8, labs reviewed from previous ER visist on 04/14 and hgb was 7.1 at that time. Pt denies any GI symptoms including nausea, vomiting, acid reflux, heartburn, abdominal pain, unintentional weight loss, constipation, diarrhea, blood in stool. Denies history of anemia, has never had blood transfusions, B12 or iron supplements. Has never had EGD. Last colonoscopy approximately 2 years ago in [place] and states exam was normal. Unknown family history, pt is adopted. Pt reports drinking a gallon of whiskey a week. Smokes a PPD. Also reports use of BC powder, frequency varies. - R LE wound- seen by vascular surgeon who recommends continuing GI work up "as any vascular intervention will require intra-procedural systemic anticoagulation" Plan: EGD and colonoscopy tomorrow Obtain consent Clear liquids today Golytely prep NPO after MN Monitor H/H Further recommendations based on exam findings Pt has been seen and examined by myself and Dr. Wang and this note is written on her behalf (Laura Barajas) Physician Comments seen, examined agree with above (Stephanie Wang MD) Laura Barajas May 03, 2018 09:49 Stephanie Wang MD May 03, 2018 18:35
[2018-05-03] MEDS: VANCOMYCIN 1,000 MG/NS 250 ML IV SCH ×4 (10:39→22:28)
[2018-05-03] MEDS: cloNIDine HCL 0.1 MG TAB PO PRN (10:39)
--- NOTE | 2018-05-03 13:13 | HHI.PR ---
Subjective Remarks Patient says he is feeling right. Reports continued pain in right foot. Denies any chest pain or shortness of breath Objective Vital Signs Date Time Temp Pulse Resp B/P (MAP) Pulse Ox O2 Delivery O2 Flow Rate FiO2 05/03/18 12:28 97.9 56 18 169/71 (103) 97 05/03/18 10:09 162/74 (103) 05/03/18 09:59 184/76 (112) 05/03/18 08:00 98.4 62 18 189/81 (117) 96 05/03/18 02:40 98.2 69 18 172/74 95 05/03/18 02:00 98.1 67 18 178/74 96 05/03/18 02:00 98.3 67 18 178/74 96 05/02/18 23:40 98.6 70 17 168/73 95 05/02/18 23:20 98.6 70 17 206/77 (120) 95 05/02/18 22:54 98.4 73 17 173/74 96 05/02/18 21:14 98.0 78 20 176/68 (104) 98 Room Air 05/02/18 19:48 81 20 172/77 (108) 98 Room Air 05/02/18 16:13 73 18 188/73 (111) 98 Room Air 05/02/18 15:13 97.4 72 16 170/72 (104) 99 I/O 05/02/18 05/02/18 05/02/18 05/03/18 05/03/18 05/03/18 07:00 15:00 23:00 07:00 15:00 23:00 Intake Total 530 ml 890 ml 300 ml Output Total 300 ml Balance 530 ml 890 ml 0 ml Intake IV Total 500 ml 300 ml Packed Cells 800 ml Blood Product IV Normal Saline Flush 30 ml 90 ml Output Urine Total 300 ml # Voids 1 Result Diagram: 05/03/18 0532 05/03/18 0532 Objective Remarks GENERAL: She is sitting up in bed. Appears comfortable. SKIN: Warm and dry. HEAD: Normocephalic. EYES: No scleral icterus. No injection or drainage. NECK: Supple, trachea midline. No JVD. CARDIOVASCULAR: Regular rate and rhythm without murmurs, gallops, or rubs. RESPIRATORY: Breath sounds equal bilaterally. No accessory muscle use. GASTROINTESTINAL: Abdomen soft, non-tender, nondistended. MUSCULOSKELETAL: No cyanosis, or edema. Right lower extremity with first 2 gangrene, seen surrounding erythema and edema. BACK: Nontender without obvious deformity. No CVA tenderness. A/P Assessment and Plan //Cellulitis failed outpatient treatment/peripheral vascular disease/ claudication Patient with cellulitis that is persistent despite compliance with Bactrim Vancomycin/Zosyn Podiatry consulted, appreciate assistance CTA significant for occlusion of the right external iliac artery, distal right common femoral artery and right superficial fundus artery with reconstitution of the right popliteal artery. Patient with symptoms consistent with claudication vascular surgery consulted, appreciate recommendations. = Continue vancomycin, Zosyn. Podiatry following. Will need revascularization after GI workup. Appreciate vascular surgery assistance. //GI bleed/symptomatic anemia Patient Hemoccult-positive in the ED with severe anemia Transfuse 2 units packed red blood cells Gastroenterology consulted, appreciate assistance N.p.o. IV Protonix = EGD/colonoscopy pending. // Hypertension Patient not on any antihypertensives at this time As needed clonidine = 05/03. Systolic blood pressures elevated. Will start clonidine. = Continue to monitor. FEN diet as per GI Electrolytes: Monitor and replete as needed NS at 60 cc/hour Holding pharmacologic anticoagulation for possible procedure Discharge Planning Clearance by podiatry, vascular surgery, GI. Lives at home and is independent with Rodney Knight MD May 03, 2018 13:13
[2018-05-03] MEDS ORDERED: amLODIPine BESYLATE 5 MG TAB PO ONE (13:30)
--- NOTE | 2018-05-03 14:51 | RADRPT ---
EXAM DATE: 05/03/2018 11:47 AM EDT AGE/SEX: 62 years / Male INDICATIONS: Nonhealing right great toe cellulitis CLINICAL DATA: This is the patient's initial encounter. Patient reports that signs and symptoms have been present for > 1 year and indicates a pain score of 7/10. MEDICAL/SURGICAL HISTORY: . Nonhealing right great toe cellulitis, hypertension, GI bleed . ri ght foot repair COMPARISON: [facility], CTA RUNOFF W 3D RECON, 05/02/2018. . TECHNIQUE: Four-cuff ankle and brachial pressures were obtained. Pulse cuff waveform tracings of the ankles were recorded, and ankle-brachial indices were calculated. PRESSURES (mmHg): Brachial (arm) : RIGHT: 190, LEFT: Ankle : RIGHT: 46, LEFT: 95 ENMA : RIGHT: 0.24, LEFT: 0.50 TBI : RIGHT: 0.00, LEFT: 0.31 FINDINGS: Pulsed-Cuff Waveform: Significantly dampened waveforms throughout the right lower extremity. Other: None. CONCLUSION: 1. Findings consistent with severe right lower extremity peripheral arterial disease. 2. Findings consistent with moderate left lower extremity peripheral arterial disease. Electronically signed by: Dusty Hilario MD 05/03/2018 2:49 PM EDT
[2018-05-03] MEDS ORDERED: PEG (High)/E-LYTE SOLN 4000 ML BTL PO ONE (16:00)
--- NOTE | 2018-05-03 17:47 | EKG ---
Date Performed: 05/02/2018 Time Performed: 16:08:01 PTAGE: 62 years EKG: Sinus rhythm NORMAL ECG NO PREVIOUS TRACING DOCTOR: Fay Staples Interpretating Date/Time 05/03/2018 17:45:39
--- NOTE | 2018-05-03 18:53 | MB ---
cc: Fabrice Sommers DPM, Dennis B DPM DATE: 05/03/2018 REASON FOR CONSULTATION: Ischemic changes to the right hallux with pain. HISTORY OF PRESENT ILLNESS: This is a 62-year-old male who admits he has a history of poor circulation for years; however, he had significant increase in pain. The patient was seen on 04/14 in which he had an incision and drainage of a paronychia. Incision and drainage was apparently performed under a digit block. The patient obviously is not healing well, He represented to the emergency room. Upon further evaluation, there is noted to be poor blood flow as well as anemic type findings. The patient is now being worked up by GI. I am currently seeing the patient bedside. He is frustrated with his medical conditions. However, it appears that he is able and willing to stick around to have his body evaluated and hopefully vascular intervention to save this toe. PAST MEDICAL HISTORY: Hypertension, tobacco, PAD, right foot orthopedic type of surgery, nonspecific. SOCIAL HISTORY: Tobacco. 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 OUTPATIENT MEDICATIONS: Antibiotic Bactrim ALLERGIES: NO KNOWN DRUG ALLERGIES. INPATIENT MEDICATIONS: Vancomycin and Zosyn. Please see complete med list in chart. PHYSICAL EXAMINATION: VITAL SIGNS: Temperature is 98.4, pulse rate 66, respiratory rate 18, blood pressure 175/74, satting 95% on room air. GENERAL: This is an alert and oriented gentleman seen bedside exhibiting nonlabored respirations. EXTREMITIES: Right lower extremity is examined. There is noted to be a black discoloration with ischemic rubor of the distal medial aspect of the patient's right hallux. There is tenderness upon palpating the area. The foot appears to be warm, but it is lacking a significant capillary fill time to the right hallux. Sensation appears to be intact to light touch and deep pressure. There is no orthopedic instability upon range of motion of the digits, forefoot, hindfoot and ankle. Left lower extremity appears to be free from any impressive lesion. LABORATORY DATA: White blood cell 9.9, hemoglobin 8.3 currently, hematocrit 25, platelet count 308. ESR 47. IMAGING FINDINGS: Foot x-ray from 04/14: No mention of bony erosive process of the hallux. Arterial Doppler 05/02 consistent with severe right lower extremity peripheral vascular disease with a severely diminished ENMA and TBI. Right ENMA 0.24, left 0.5. Aorta with runoff, occlusive right external iliac artery, distal right common femoral artery and right superficial fundus artery with reconstruction of the right popliteal artery, extensive atherosclerotic changes, peripheral vascular disease. New recurrent x-ray is ordered to rule out osteomyelitis. Microbial findings: Wound noted to be Staph aureus. C and S is pending. ASSESSMENT AND PLAN: Right hallux early gangrene eschar status post I and D of paronychia with severe peripheral vascular disease. I agree with the plan vascular has laid out. We will attempt to stabilize the wound with Betadine swab. Continue IV antibiotics. The patient may need debridement of the wound after revascularization versus hallux amputation. I will continue to follow along conservatively until the patient's vascular flow has improved. YUE Yost/ , 06:33 PM , 06:51 PM
--- NOTE | 2018-05-03 19:08 | RADRPT ---
EXAM DATE: 05/03/2018 6:40 PM EDT AGE/SEX: 62 years / Male INDICATIONS: Right foot, 1st digit infection. CLINICAL DATA: This is the patient's initial encounter. Patient reports that signs and symptoms have been present for 2 months and indicates a pain score of 3/10. MEDICAL/SURGICAL HISTORY: None. . ORIF right ankle in 1987. [place] [facility] [place][id number] 04/14/2018. . FINDINGS: The examination demonstrates severe osteopenia. There is a history stating infection of the right fir st digit. While there are osteopenic changes there is no cortical destruction. No definite findings t o indicate osteomyelitis are seen. The graft there are 2 old pins evident across the medial malleolus . There are advanced degenerative changes within the ankle. CONCLUSION: No definite findings to indicate osteomyelitis identified. Postsurgical changes and soft tissue swelling. Advanced osteopenia. Electronically signed by: Pavan Sánchez MD 05/03/2018 7:07 PM EDT
[2018-05-04] VITALS (8 sets, daily range): BP systolic 128–196; BP diastolic 62–80; PULSE 52–77; RESP 16–20; TEMP 97.9–98.4; O2SAT 95–98
[2018-05-04] MEDS: PIPERACIL-TAZO 3.375 GM PREMIX 50 ML IV SCH ×4 (02:00→21:06)
[2018-05-04] MEDS: cloNIDine HCL 0.1 MG TAB PO PRN ×2 (02:35→21:09)
[2018-05-04] MEDS: PANTOPRAZOLE SODIUM 40 MG VIAL IV PUSH SCH ×2 (09:00→21:00)
[2018-05-04] MEDS: SODIUM CHLORIDE 0.9% FLUSH 10 ML FLUSH IV FLUSH SCH ×2 (09:00→21:00)
[2018-05-04] MEDS: amLODIPine BESYLATE 5 MG TAB PO SCH (09:00)
[2018-05-04] MEDS ORDERED: SODIUM CHLORID 0.9% 500 ML IV PRN (09:30)
[2018-05-04] MEDS ORDERED: POVIDONE IODINE 5% (ANTISEPSIS KIT) 4 APPLICATIONS EACH NARE PRN (09:30)
[2018-05-04] MEDS ORDERED: LACTATED RINGER'S 1000 ML IV PRN (09:30)
[2018-05-04] MEDS ORDERED: METOPROLOL TARTRATE 25 MG TAB PO PRN (09:30)
[2018-05-04] MEDS ORDERED: CHLORHEXIDINE GLUCONATE 2 % 1 PACK (2 CLOTHS) TOPICAL PRN (09:30)
[2018-05-04] MEDS: VANCOMYCIN 1,000 MG/NS 250 ML IV SCH ×4 (10:00→12:32)
--- NOTE | 2018-05-04 11:12 | GIPROC ---
[facility] [address] [facility]. [facility], [address] EGD PROCEDURE REPORT EXAM DATE: 05/04/2018 PATIENT NAME: Juan Alberto Carrasco MR #: [id number] BIRTHDATE: 1955 ATTENDING: Stephanie Wang MD ORDER #: [id number] FILTER OPERATOR: Hitesh Goff and Destiney Fraire STATUS: inpatient INDICATIONS: The patient is a 62 yr old male here for an EGD due to anemia PROCEDURE PERFORMED: EGD w/ biopsy MEDICATIONS: None and Per Anesthesia. TOPICAL ANESTHETIC: none CONSENT: The patient understands the risks and benefits of the procedure and understands that these risks include, but are not limited to: sedation, allergic reaction, infection, perforation and/or bleeding. Alternative means of evaluation and treatment include, among others: physical exam, x-rays, and/or surgical intervention. The patient elects to proceed with this endoscopic procedure. medical equipment was checked for proper function. Hand hygiene and appropriate measures for infection prevention was taken. After the risks, benefits and alternatives of the procedure were thoroughly explained, Informed consent was verified, confirmed and timeout was successfully executed by the treatment team. The patient was anesthetized with topical anesthesia and the Pentax EG-[id number] endoscope was introduced through the mouth and advanced to the second portion of the duodenum. Retroflexed views revealed a hiatal hernia The gastroscope was then slowly withdrawn and removed. Anemia. ADVERSE EVENTS: There were no complications. IMPRESSIONS: 1. Anemia 2. Retroflexed views revealed a hiatal hernia RECOMMENDATIONS: 1. Anti-reflux regimen 2. Continue PPI 3. Await biopsy results. Biopsy results will not be ready for 7-10 days. If you don't hear from us in two weeks, call our office for biopsy results. PATIENT CONDITION: stable DISPOSITION: Home REPEAT EXAM: Return 6 weeks EGD Stephanie Wang MD eSigned: Stephanie Wang MD 05/04/2018 11:12 AM cc: DOCUMENT ADDENDUM eSigned: Stephanie Wang MD 05/04/2018 11:35 AM Reason for addendum: [ ] Correction of inaccurate information [ ] Recently acquired lab/pathology results [x] Additional information Comments: gastritis antrum-biopsy duodenum normal-biopsy to r/o celiac disease esopghagitis distal esophagus -biopsy ulcer midesophagus -biopsy REcc fu biopsy colonoscopy in am if agrees clear liquid diet ppi if dc fu office PATIENT NAME: Juan Alberto Carrasco MR#: [id number]
[2018-05-04] MEDS ORDERED: PROPOFOL 200 MG/20 ML AMP IV ONE (12:00)
[2018-05-04] MEDS: MORPHINE SULFATE 4 MG/ML INJ IV PUSH PRN ×3 (12:05→21:10)
[2018-05-04] MEDS ORDERED: PEG (High)/E-LYTE SOLN 4000 ML BTL PO ONE (12:15)
[2018-05-04] MEDS: SODIUM CHLOR 0.9% 1000 ML INJ 1,000 ML IV SCH (12:32)
--- NOTE | 2018-05-04 16:36 | HHI.PR ---
Subjective Remarks Patient says he is feeling right. Reports continued pain in right foot. Denies any chest pain or shortness of breath Objective Vital Signs Date Time Temp Pulse Resp B/P (MAP) Pulse Ox O2 Delivery O2 Flow Rate FiO2 05/04/18 12:58 97.9 72 20 135/62 (86) 96 05/04/18 12:31 20 05/04/18 11:13 97.3 82 20 135/59 (84) 97 05/04/18 08:19 98.2 70 20 196/80 (118) 96 05/04/18 03:00 76 166/74 (104) 05/04/18 01:01 98.2 72 16 188/77 (114) 97 Manual Cuff/Auscultation 05/03/18 19:55 98.8 61 17 197/83 (121) 95 I/O 05/03/18 05/03/18 05/03/18 05/04/18 05/04/18 05/04/18 07:00 15:00 23:00 07:00 15:00 23:00 Intake Total 890 ml 350 ml 740 ml Output Total 300 ml Balance 890 ml 50 ml 740 ml Intake Oral 40 ml IV Total 350 ml 500 ml Packed Cells 800 ml Blood Product IV Normal Saline Flush 90 ml Other 200 ml Output Urine Total 300 ml # Voids 1 Result Diagram: 05/04/18 1440 05/03/18 0532 Objective Remarks GENERAL: he is sitting up in bed. Appears comfortable. SKIN: Warm and dry. HEAD: Normocephalic. EYES: No scleral icterus. No injection or drainage. NECK: Supple, trachea midline. No JVD. CARDIOVASCULAR: Regular rate and rhythm without murmurs, gallops, or rubs. RESPIRATORY: Breath sounds equal bilaterally. No accessory muscle use. GASTROINTESTINAL: Abdomen soft, non-tender, nondistended. MUSCULOSKELETAL: No cyanosis, or edema. Right lower extremity with first 2 gangrene, seen surrounding erythema and edema. Unchanged. BACK: Nontender without obvious deformity. No CVA tenderness. A/P Assessment and Plan //Cellulitis failed outpatient treatment/peripheral vascular disease/ claudication Patient with cellulitis that is persistent despite compliance with Bactrim Vancomycin/Zosyn Podiatry consulted, appreciate assistance CTA significant for occlusion of the right external iliac artery, distal right common femoral artery and right superficial fundus artery with reconstitution of the right popliteal artery. Patient with symptoms consistent with claudication vascular surgery consulted, appreciate recommendations. = Unfortunately patient had poor prep and could not do colonoscopy. No signs of acute bleeding on EGD. Continue vancomycin, Zosyn. Podiatry following. Will need revascularization after GI workup. Appreciate vascular surgery assistance. //GI bleed/symptomatic anemia Patient Hemoccult-positive in the ED with severe anemia Transfuse 2 units packed red blood cells Gastroenterology consulted, appreciate assistance N.p.o. IV Protonix = Unfortunately patient had poor prep and could not do colonoscopy // Hypertension Patient not on any antihypertensives at this time As needed clonidine = 05/03. Systolic blood pressures elevated. Will start clonidine. = Continue to monitor. FEN diet as per GI Electrolytes: Monitor and replete as needed NS at 60 cc/hour Holding pharmacologic anticoagulation for possible procedure Discharge Planning Clearance by podiatry, vascular surgery, GI. Lives at home and is independent with ADLs Rodney Hernandez MD May 04, 2018 16:36
[2018-05-04] MEDS ORDERED: amLODIPine BESYLATE 5 MG TAB PO ONE (16:45)
[2018-05-04] MEDS ORDERED: PHARMACY ORDERED LAB ONE (21:45)
[2018-05-05] VITALS (9 sets, daily range): BP systolic 143–189; BP diastolic 63–79; PULSE 52–75; RESP 16–20; TEMP 96.7–98.5; O2SAT 94–99
[2018-05-05] MEDS: PIPERACIL-TAZO 3.375 GM PREMIX 50 ML IV SCH ×4 (01:44→20:01)
[2018-05-05] MEDS: SODIUM CHLOR 0.9% 1000 ML INJ 1,000 ML IV SCH ×2 (06:26→23:58)
[2018-05-05] MEDS: cloNIDine HCL 0.1 MG TAB PO PRN ×3 (08:27→23:58)
[2018-05-05] MEDS: PANTOPRAZOLE SODIUM 40 MG VIAL IV PUSH SCH ×2 (08:28→20:01)
[2018-05-05] MEDS: amLODIPine BESYLATE 5 MG TAB PO SCH (08:28)
[2018-05-05] MEDS: SODIUM CHLORIDE 0.9% FLUSH 10 ML FLUSH IV FLUSH SCH ×2 (08:29→20:01)
--- NOTE | 2018-05-05 08:38 | HHI.PR ---
Subjective Remarks Patient says he is feeling all right. Denies any chest pain or shortness of breath. Denies nausea or vomiting. Discussed with nursing. Patient pulled out IV last night. Has only had a few cups of his GoLYTELY Objective Vital Signs Date Time Temp Pulse Resp B/P (MAP) Pulse Ox O2 Delivery O2 Flow Rate FiO2 05/05/18 07:29 96.7 74 20 189/77 (114) 98 05/05/18 04:14 98.5 75 16 177/75 (109) 94 05/05/18 04:00 70 05/05/18 00:00 52 05/04/18 22:38 98.2 72 16 150/67 (94) 95 05/04/18 20:54 98.4 77 16 194/78 (116) 95 05/04/18 20:00 52 05/04/18 18:13 20 05/04/18 16:55 98.2 68 20 128/62 (84) 98 05/04/18 12:58 97.9 72 20 135/62 (86) 96 05/04/18 11:13 97.3 82 20 135/59 (84) 97 I/O 05/04/18 05/04/18 05/04/18 05/05/18 05/05/18 05/05/18 07:00 15:00 23:00 07:00 15:00 23:00 Intake Total 740 ml 50 ml Output Total 250 ml Balance 740 ml 50 ml -250 ml Intake Oral 40 ml IV Total 500 ml 50 ml Other 200 ml Output Urine Total 250 ml Result Diagram: 05/04/18 1440 05/03/18 0532 Objective Remarks GENERAL: Sleeping, wakes up for exam. Appears comfortable. SKIN: Warm and dry. HEAD: Normocephalic. EYES: No scleral icterus. No injection or drainage. NECK: Supple, trachea midline. No JVD. CARDIOVASCULAR: Regular rate and rhythm without murmurs, gallops, or rubs. RESPIRATORY: Breath sounds equal bilaterally. No accessory muscle use. GASTROINTESTINAL: Abdomen soft, non-tender, nondistended. MUSCULOSKELETAL: No cyanosis, or edema. Right lower extremity with first 2 gangrene, seen surrounding erythema and edema. Again, unchanged. BACK: Nontender without obvious deformity. No CVA tenderness. A/P Assessment and Plan //Cellulitis failed outpatient treatment/peripheral vascular disease/ claudication Patient with cellulitis that is persistent despite compliance with Bactrim Vancomycin/Zosyn Podiatry consulted, appreciate assistance CTA significant for occlusion of the right external iliac artery, distal right common femoral artery and right superficial fundus artery with reconstitution of the right popliteal artery. Patient with symptoms consistent with claudication vascular surgery consulted, appreciate recommendations. = Unfortunately patient had poor prep and could not do colonoscopy. No signs of acute bleeding on EGD. Continue vancomycin, Zosyn. Podiatry following. Will need revascularization after GI workup. Appreciate vascular surgery assistance. = Patient has not had adequate GoLYTELY. Nursing to inform GI. Informed patient that he needs to have colonoscopy prior to undergoing revascularization and surgery to right foot //GI bleed/symptomatic anemia Patient Hemoccult-positive in the ED with severe anemia Transfuse 2 units packed red blood cells Gastroenterology consulted, appreciate assistance N.p.o. IV Protonix = Again recent drank inadequate prep. Discussed with patient. He will need colonoscopy prior to undergoing surgical intervention on right foot. // Hypertension Patient not on any antihypertensives at this time As needed clonidine = 05/03. Systolic blood pressures elevated. Will start clonidine. = Continue to monitor. = Systolic blood pressure elevated in the 180s. We will start clonidine 0.1 mg p.o. twice daily. Continue amlodipine started here as well. FEN diet as per GI Electrolytes: Monitor and replete as needed NS at 60 cc/hour Holding pharmacologic anticoagulation for possible procedure Discharge Planning Patient will need colonoscopy, then will undergo right lower extremity revascularization, surgery by podiatry. Clearance by podiatry, vascular surgery, GI. Lives at home and is independent with ADLs Rodney Hernandez MD May 05, 2018 08:38
[2018-05-05] MEDS ORDERED: NALOXONE HCL 0.4 MG/ML AMP IV PUSH PRN (08:45)
[2018-05-05] MEDS ORDERED: ACETAMINOPHEN/HYDROcodone 325 MG/5 MG TAB PO PRN (08:45)
[2018-05-05] MEDS: cloNIDine HCL 0.1 MG TAB PO SCH ×2 (09:00→20:01)
--- NOTE | 2018-05-05 09:34 | HHI.GIFU ---
Subjective Remarks Pt is resting in bed, Goyltely jug next to his bed, was suppose to have EGD/ colonoscopy today, but was cancelled due to not doing the prep. Endorsed black stools today. No nausea, vomiting or abd pain. (Sylvia Houser) Objective Vitals I&O Vital Signs Date Time Temp Pulse Resp B/P (MAP) Pulse Ox O2 Delivery O2 Flow Rate FiO2 05/05/18 07:29 96.7 74 20 189/77 (114) 98 05/05/18 04:14 98.5 75 16 177/75 (109) 94 05/05/18 04:00 70 05/05/18 00:00 52 05/04/18 22:38 98.2 72 16 150/67 (94) 95 05/04/18 20:54 98.4 77 16 194/78 (116) 95 05/04/18 20:00 52 05/04/18 18:13 20 05/04/18 16:55 98.2 68 20 128/62 (84) 98 05/04/18 12:58 97.9 72 20 135/62 (86) 96 05/04/18 11:13 97.3 82 20 135/59 (84) 97 I/O 05/04/18 05/04/18 05/04/18 05/05/18 05/05/18 05/05/18 06:59 14:59 22:59 06:59 14:59 22:59 Intake Total 740 ml 50 ml Output Total 250 ml Balance 740 ml 50 ml -250 ml Intake Oral 40 ml IV Total 500 ml 50 ml Other 200 ml Output Urine Total 250 ml Laboratory Laboratory Tests Test 05/04/18 14:40 05/04/18 21:45 Hemoglobin 9.1 Vancomycin Level Trough 6.9 Date/Time Source Procedure Growth Status 05/02/18 20:00 Wound Toe Gram Stain - Final Resulted 05/02/18 20:00 Wound Culture - Preliminary Staphylococcus Aureus Pseudo Fluorescens/Putida Acinetobacter Baumannii/Haemol Resulted Imaging Last Impressions Foot X-Ray 05/03/18 0000 Signed Impressions: CONCLUSION: No definite findings to indicate osteomyelitis identified. Postsurgical changes and soft tissue swelling. Advanced osteopenia. Chest X-Ray 05/02/18 1536 Signed Impressions: CONCLUSION: No acute cardiopulmonary process. Extremity Arterial Study 05/02/18 0000 Signed Impressions: CONCLUSION: 1. Findings consistent with severe right lower extremity peripheral arterial d isease. 2. Findings consistent with moderate left lower extremity peripheral arterial disease. Aorta w/Runoff CTA 05/02/18 0000 Signed Impressions: CONCLUSION: 1. Occlusion of the right external iliac artery, distal right common femoral a rtery and right superficial fundus artery with reconstitution of the right popl iteal artery.. 2. Extensive atherosclerotic changes/peripheral vascular disease. Physical Exam HEENT: Pupils round and reactive to light; normocephalic; atraumatic; no jaundice. Throat is clear. CHEST: Chest is clear to auscultation and percussion. CARDIAC: Regular rate and rhythm with no murmur gallop or rubs. ABDOMEN: Soft, nondistended, nontender; no hepatosplenomegaly; bowel sounds are present in all four quadrants. EXTREMITIES: Right lower extremity with first 2 digits gangrene, surrounding erythema and edema. SALES SUPPORT ADVISOR: No focal deficits; alert and oriented times three. (Sylvia Houser) Assessment and Plan Plan Assessment: - Anemia- microcytic, hypochromic In ER pt was found to have a hgb on 6.8, labs reviewed from previous ER visist on 04/14 and hgb was 7.1 at that time. Pt denies any GI symptoms including nausea, vomiting, acid reflux, heartburn, abdominal pain, unintentional weight loss, constipation, diarrhea, blood in stool. Denies history of anemia, has never had blood transfusions, B12 or iron supplements. Has never had EGD. Last colonoscopy approximately 2 years ago in [place] and states exam was normal. Unknown family history, pt is adopted. Pt reports drinking a gallon of whiskey a week. Smokes a PPD. Also reports use of BC powder, frequency varies. - R LE wound- seen by vascular surgeon who recommends continuing GI work up "as any vascular intervention will require intra-procedural systemic anticoagulation" 05/05/18 EGD/colonoscopy due to not completing the prep, will try again tomorrow , Pt will work on it He is having black stools today Plan: EGD and colonoscopy tomorrow Clear liquids today Golytely prep, Stressed the importance of having this done NPO after [facility] today Further recommendations based on exam findings Pt has been seen and examined by myself and Dr. Wang and this note is written on her behalf (Sylvia Houser) Physician Comments seen, examined agree with above (Stephanie Wang MD) Sylvia Houser May 05, 2018 09:34 Stephanie Wang MD May 05, 2018 20:42
[2018-05-05] MEDS: VANCOMYCIN 1,000 MG/NS 250 ML IV SCH ×4 (10:12→22:32)
[2018-05-05 12:41] LABS: AUTOMATED NEUTROPHIL # 5.9 TH/MM3 (1.8-7.7); BASOPHIL # 0.1 TH/MM3 (0-0.2); BASOPHIL % 0.9 % (0.0-2.0); EOSINOPHIL # 0.2 TH/MM3 (0-0.4); EOSINOPHIL % 2.3 % (0.0-4.0); HEMATOCRIT 30.3 % (39.0-51.0); LYMPH % 18.5 % (9.0-44.0); LYMPHOCYTE # 1.6 TH/MM3 (1.0-4.8); MEAN CELL VOLUME 64.3 FL (80.0-100.0); MEAN PLATELET VOLUME 8.6 FL (7.0-11.0); MONO % 12.1 % (0.0-8.0); MONOCYTE # 1.1 TH/MM3 (0-0.9); NEUT % 66.2 % (16.0-70.0); PLATELET COUNT 344 TH/MM3 (150-450); RED BLOOD COUNT 4.71 MIL/MM3 (4.50-5.90); RED CELL DISTRIBUTION WIDTH 28.9 % (11.6-17.2); WHITE BLOOD COUNT 8.9 TH/MM3 (4.0-11.0)
[2018-05-05 12:48] LABS: MEAN CORPUSCULAR HGB CONC 29.6 % (32.0-36.0)
[2018-05-05 14:18] LABS: POLYCHROMASIA 3.1 % (0.0-1.9)
[2018-05-05 14:19] LABS: OVALOCYTES 1+ (NORMAL)
[2018-05-05] MEDS: ACETAMINOPHEN/HYDROcodone 325 MG/7.5 MG TAB PO PRN ×3 (14:55→23:59)
[2018-05-06] VITALS (8 sets, daily range): BP systolic 132–185; BP diastolic 60–78; PULSE 52–73; RESP 16–18; TEMP 97.6–98.6; O2SAT 94–97
[2018-05-06] MEDS: PIPERACIL-TAZO 3.375 GM PREMIX 50 ML IV SCH ×4 (02:31→21:01)
[2018-05-06] MEDS: ACETAMINOPHEN/HYDROcodone 325 MG/7.5 MG TAB PO PRN ×4 (04:08→21:08)
[2018-05-06] MEDS: PANTOPRAZOLE SODIUM 40 MG VIAL IV PUSH SCH ×2 (07:59→21:01)
[2018-05-06] MEDS: cloNIDine HCL 0.1 MG TAB PO SCH ×2 (08:00→21:01)
[2018-05-06] MEDS: amLODIPine BESYLATE 5 MG TAB PO SCH (08:00)
[2018-05-06] MEDS: SODIUM CHLORIDE 0.9% FLUSH 10 ML FLUSH IV FLUSH SCH ×2 (09:00→21:01)
[2018-05-06] MEDS ORDERED: PHARMACY ORDERED LAB ONE (09:45)
[2018-05-06] MEDS ORDERED: DO NOT ADM ANY ANTICOAGULANT DRUGS PRN (10:40)
--- NOTE | 2018-05-06 10:42 | GIPROC ---
[facility] [address] [facility]. [facility], [address] COLONOSCOPY PROCEDURE REPORT EXAM DATE: 05/06/2018 PATIENT NAME: Juan Alberto Carrasco MR #: [id number] BIRTHDATE: 1955 ENDOSCOPIST: Stephanie Wang MD ORDER #: [id number] ENERGY PROJECT ENGINEER: Hakn Tracy STATUS: inpatient INDICATIONS: The patient is a 62 yr old male here for a colonoscopy due to anemia, gi bleeding PROCEDURE PERFORMED: Colonoscopy, diagnostic MEDICATIONS: None and Per Anesthesia. PREP QUALITY: fair PREP TYPE:Other: ESTIMATED BLOOD LOSS: None CONSENT: The patient understands the risks and benefits of the procedure and understands that these risks include, but are not limited to: sedation, allergic reaction, infection, perforation and/or bleeding. Alternative means of evaluation and treatment include, among others: physical exam, x-rays, and/or surgical intervention. The patient elects to proceed with this endoscopic procedure. medical equipment was checked for proper function. Hand hygiene and appropriate measures for infection prevention was taken. After the risks, benefits and alternatives of the procedure were thoroughly explained, Informed consent was verified, confirmed and timeout was successfully executed by the treatment team. A digital exam revealed external hemorrhoids The Pentax [id number] endoscope was introduced through the anus and advanced to the cecum, which was identified by both the appendix and ileocecal valve. The instrument was then slowly withdrawn as the colon was fully examined. COLON FINDINGS: Diverticulosis sigmoid,descending. Retroflexed views revealed internal hemorrhoids and Retroflexed views revealed medium internal hemorrhoids The scope was then completely withdrawn from the patient and the procedure terminated. PROCEDURE WITHDRAWAL TIME:6minutes ADVERSE EVENTS: There were no complications. IMPRESSIONS: 1. Diverticulosis sigmoid,descending 2. Retroflexed views revealed internal hemorrhoids 3. Retroflexed views revealed medium internal hemorrhoids 4. Revealed external hemorrhoids RECOMMENDATIONS: 1. Benefiber 2 tsp daily 2. High fiber diet 3. Probiotics from any [facility] or health food store RECALL: Return 5 years Colonoscopy Stephanie Wang MD eSigned: Stephanie Wang MD 05/06/2018 10:42 AM cc:
[2018-05-06] MEDS ORDERED: *ENALAPRILAT 1.25 MG/ML VIAL PERIprocedural Use ONLY ONE (11:16)
[2018-05-06] MEDS ORDERED: LIDOCAINE HCL 1% PF 5 ML SYRINGE OTHER ONE (12:00)
[2018-05-06] MEDS ORDERED: PROPOFOL 200 MG/20 ML AMP IV ONE (12:00)
--- NOTE | 2018-05-06 13:51 | HHI.PR ---
Subjective Remarks Patient reports that right leg pain continues, however controlled. Denies any chest pain or shortness of breath. Denies nausea or vomiting. Objective Vital Signs Date Time Temp Pulse Resp B/P (MAP) Pulse Ox O2 Delivery O2 Flow Rate FiO2 05/06/18 12:00 98.0 52 17 176/74 (108) 96 05/06/18 11:25 56 16 158/70 (99) 94 Room Air 05/06/18 11:15 68 16 172/74 (106) 94 Room Air 05/06/18 11:00 60 16 157/70 (99) 97 05/06/18 10:45 52 16 136/65 (88) 97 Nasal Cannula 2 05/06/18 10:40 98.3 48 16 142/65 (90) 98 Nasal Cannula 2 05/06/18 08:00 97.9 73 17 151/70 (97) 96 05/06/18 04:00 98.6 61 18 147/65 (92) 94 05/06/18 03:11 55 05/06/18 00:00 98.6 60 18 185/78 (113) 97 05/05/18 20:25 55 05/05/18 20:00 98.5 70 18 143/63 (89) 96 05/05/18 16:00 97.3 57 17 178/74 (108) 98 05/05/18 15:22 98.0 65 20 175/73 (107) 97 I/O 05/05/18 05/05/18 05/05/18 05/06/18 05/06/18 05/06/18 06:59 14:59 22:59 06:59 14:59 22:59 Intake Total 300 ml 50 ml 1250 ml 150 ml Output Total 900 ml 200 ml Balance -600 ml 50 ml 1250 ml -50 ml Intake Oral 0 ml IV Total 300 ml 50 ml 1250 ml 150 ml Output Urine Total 900 ml 200 ml # Voids 3 # Bowel Movements 3 5 Result Diagram: 05/05/18 1217 05/03/18 0532 Objective Remarks GENERAL: Sleeping, wakes up for exam. Appears comfortable. SKIN: Warm and dry. HEAD: Normocephalic. EYES: No scleral icterus. No injection or drainage. NECK: Supple, trachea midline. No JVD. CARDIOVASCULAR: Regular rate and rhythm without murmurs, gallops, or rubs. RESPIRATORY: Breath sounds equal bilaterally. No accessory muscle use. GASTROINTESTINAL: Abdomen soft, non-tender, nondistended. MUSCULOSKELETAL: No cyanosis, or edema. Right lower extremity with first toe gangrene, seen surrounding erythema and edema. Unchanged BACK: Nontender without obvious deformity. No CVA tenderness. A/P Assessment and Plan //Cellulitis failed outpatient treatment/peripheral vascular disease/ claudication Patient with cellulitis that is persistent despite compliance with Bactrim Vancomycin/Zosyn Podiatry consulted, appreciate assistance CTA significant for occlusion of the right external iliac artery, distal right common femoral artery and right superficial fundus artery with reconstitution of the right popliteal artery. Patient with symptoms consistent with claudication vascular surgery consulted, appreciate recommendations. = Unfortunately patient had poor prep and could not do colonoscopy. No signs of acute bleeding on EGD. Continue vancomycin, Zosyn. Podiatry following. Will need revascularization after GI workup. Appreciate vascular surgery assistance. = Patient has not had adequate GoLYTELY. Nursing to inform GI. Informed patient that he needs to have colonoscopy prior to undergoing revascularization and surgery to right foot = S post colonoscopy with diverticulosis. Further plan per vascular surgery and podiatry. //GI bleed/symptomatic anemia Patient Hemoccult-positive in the ED with severe anemia Transfuse 2 units packed red blood cells Gastroenterology consulted, appreciate assistance N.p.o. IV Protonix = Again recent drank inadequate prep. Discussed with patient. He will need colonoscopy prior to undergoing surgical intervention on right foot. = 05/06. Colonoscopy with diverticulosis. Will start on iron supplementation. Iron studies pending. // Hypertension Patient not on any antihypertensives at this time As needed clonidine = 05/03. Systolic blood pressures elevated. Will start clonidine. = Continue to monitor. = Systolic blood pressure elevated in the 180s. We will start clonidine 0.1 mg p.o. twice daily. Continue amlodipine started here as well. = Blood pressure acceptable. Continue to monitor. FEN diet as per GI Electrolytes: Monitor and replete as needed NS at 60 cc/hour Holding pharmacologic anticoagulation for possible procedure Discharge Planning Status post colonoscopy with diverticulosis. Will need treatment for anemia Then will undergo right lower extremity revascularization by vascular surgery, surgery by podiatry. We will need clearance by podiatry, vascular surgery. Lives at home and is independent with ADLs Rodney Hernandez MD May 06, 2018 13:51
[2018-05-06] MEDS: VANCOMYCIN 1,000 MG/NS 250 ML IV SCH ×2 (16:31)
[2018-05-06 16:34] LABS: % SATURATION IRON PROFILE 4.4 % (20-50); IRON (FE) 15 MCG/DL (65-175); TOTAL IRON BINDING CAPACITY 337 MCG/DL (250-450)
[2018-05-06 16:37] LABS: FERRITIN 26 NG/ML (26-388)
[2018-05-06] MEDS: FERROUS SULFATE 325 MG (65 MG ELEMENTAL IRON) TAB PO SCH (21:01)
[2018-05-06] MEDS: SODIUM CHLOR 0.9% 1000 ML INJ 1,000 ML IV SCH (21:08)
[2018-05-07] VITALS (8 sets, daily range): BP systolic 132–186; BP diastolic 60–77; PULSE 53–69; RESP 16–18; TEMP 97.6–98.5; O2SAT 95–100
[2018-05-07] MEDS: PIPERACIL-TAZO 3.375 GM PREMIX 50 ML IV SCH ×4 (04:11→20:32)
[2018-05-07] MEDS: ACETAMINOPHEN/HYDROcodone 325 MG/7.5 MG TAB PO PRN ×4 (04:12→20:32)
[2018-05-07] MEDS: VANCOMYCIN 1,000 MG/NS 250 ML IV SCH ×4 (04:59→16:45)
[2018-05-07 07:43] LABS: AUTOMATED NEUTROPHIL # 3.8 TH/MM3 (1.8-7.7); BASOPHIL # 0.1 TH/MM3 (0-0.2); BASOPHIL % 1.3 % (0.0-2.0); EOSINOPHIL # 0.3 TH/MM3 (0-0.4); EOSINOPHIL % 4.4 % (0.0-4.0); HEMATOCRIT 28.6 % (39.0-51.0); HEMOGLOBIN 8.5 GM/DL (13.0-17.0); LYMPH % 27.4 % (9.0-44.0); MEAN CELL VOLUME 65.2 FL (80.0-100.0); MEAN CORPUSCULAR HEMOGLOBIN 19.4 PG (27.0-34.0); MEAN PLATELET VOLUME 8.5 FL (7.0-11.0); MONO % 15.6 % (0.0-8.0); MONOCYTE # 1.1 TH/MM3 (0-0.9); NEUT % 51.3 % (16.0-70.0); PLATELET COUNT 311 TH/MM3 (150-450); RED BLOOD COUNT 4.39 MIL/MM3 (4.50-5.90); RED CELL DISTRIBUTION WIDTH 30.3 % (11.6-17.2); WHITE BLOOD COUNT 7.3 TH/MM3 (4.0-11.0)
[2018-05-07 07:45] LABS: MEAN CORPUSCULAR HGB CONC 29.7 % (32.0-36.0)
[2018-05-07 08:01] LABS: BICARBONATE 19.5 MEQ/L (21.0-32.0); CALCIUM 7.6 MG/DL (8.5-10.1); CREATININE 0.53 MG/DL (0.60-1.30)
[2018-05-07 08:21] LABS: OVALOCYTES 1+ (NORMAL)
[2018-05-07] MEDS: SODIUM CHLORIDE 0.9% FLUSH 10 ML FLUSH IV FLUSH SCH ×2 (09:00→20:32)
[2018-05-07] MEDS: POLYETHYLENE GLYCOL 17 GM PKG PO SCH (09:00)
[2018-05-07] MEDS: FERROUS SULFATE 325 MG (65 MG ELEMENTAL IRON) TAB PO SCH ×2 (09:30→20:32)
[2018-05-07] MEDS: PANTOPRAZOLE SODIUM 40 MG VIAL IV PUSH SCH ×2 (09:30→20:32)
[2018-05-07] MEDS: amLODIPine BESYLATE 5 MG TAB PO SCH (09:30)
[2018-05-07] MEDS: IRON SUCROSE INJ 100 MG in SODIUM CHLORIDE 0.9% INJ 100 ML IV SCH (09:30)
[2018-05-07] MEDS: cloNIDine HCL 0.1 MG TAB PO SCH ×2 (09:30→20:32)
[2018-05-07] MEDS: POTASSIUM CHLOR 10 MEQ PREMIX 100 ML IV SCH ×4 (09:31→11:29)
--- NOTE | 2018-05-07 11:15 | PD.VS.PN ---
Subjective Subjective/Hospital Course 62/M c/o R LE tissue loss that has been present for 1M Pt c/o R LE pain Pt w/ discolored R great toe Pt denied fever or chills Objective Vitals/I&O Date Time Temp Pulse Resp B/P (MAP) Pulse Ox O2 Delivery O2 Flow Rate FiO2 05/07/18 04:00 98.5 69 18 150/72 (98) 97 05/07/18 00:05 53 05/07/18 00:00 98.3 69 18 157/75 (102) 97 05/06/18 22:08 18 05/06/18 20:00 67 05/06/18 20:00 98.1 66 18 177/74 (108) 95 05/06/18 16:00 97.9 69 17 165/72 (103) 96 05/06/18 12:00 98.0 52 17 176/74 (108) 96 05/06/18 11:25 56 16 158/70 (99) 94 Room Air 05/06/18 11:15 68 16 172/74 (106) 94 Room Air 05/07/18 05/07/18 05/07/18 06:59 14:59 22:59 Intake Total 240 ml Output Total 650 ml Balance -410 ml Physical Exam Non palpable R LE distal pulses present Darkened discolored R great toe B LE warm, motor intact L>R Laboratory Laboratory Tests Test 05/06/18 14:02 05/07/18 06:10 Iron Level 15 Total Iron Binding Capacity 337 Percent Iron Saturation 4.4 Ferritin 26 Vancomycin Level Trough 9.1 White Blood Count 7.3 Red Blood Count 4.39 Hemoglobin 8.5 Hematocrit 28.6 Mean Corpuscular Volume 65.2 Mean Corpuscular Hemoglobin 19.4 Mean Corpuscular Hemoglobin Concent 29.7 Red Cell Distribution Width 30.3 Platelet Count 311 Mean Platelet Volume 8.5 Neutrophils (%) (Auto) 51.3 Lymphocytes (%) (Auto) 27.4 Monocytes (%) (Auto) 15.6 Eosinophils (%) (Auto) 4.4 Basophils (%) (Auto) 1.3 Neutrophils # (Auto) 3.8 Lymphocytes # (Auto) 2.0 Monocytes # (Auto) 1.1 Eosinophils # (Auto) 0.3 Basophils # (Auto) 0.1 CBC Comment AUTO DIFF Differential Comment AUTO DIFF CONFIRMED Platelet Estimate NORMAL Platelet Morphology Comment NORMAL Ovalocytes 1+ Blood Urea Nitrogen 4 Creatinine 0.53 Random Glucose 78 Calcium Level 7.6 Sodium Level 136 Potassium Level 3.1 Chloride Level 104 Carbon Dioxide Level 19.5 Anion Gap 13 Estimat Glomerular Filtration Rate 158 Date/Time Source Procedure Growth Status 05/02/18 20:00 Wound Toe Gram Stain - Final Complete 05/02/18 20:00 Wound Culture - Final Staphylococcus Aureus Pseudo Fluorescens/Putida Acinetobacter Baumannii/Haemol Complete Assessment and Plan Assessment: (1) Peripheral vascular disease Status: Acute Plan 62/M w/ a hx of PAD and non-healing R LE wound Revascularization planning for tomorrow (05/08/18) w/ Dr. Ly Plan R LE revascularization (angiogram/Distal bypass) planned for tomorrow am NPO after midnight Recommend CV risk factor modification and medical management - Anticoagulation/ Statin therapy Neli Burnett NP [facility] [phone] Discharge Planning 2-3 days Neli Burnett May 07, 2018 11:15
[2018-05-07] MEDS: cloNIDine HCL 0.1 MG TAB PO PRN (11:59)
--- NOTE | 2018-05-07 14:47 | HHI.PR ---
Subjective Remarks Patient reports that right leg pain is controlled. Denies chest pain shortness of breath. Denies nausea vomiting. Objective Vital Signs Date Time Temp Pulse Resp B/P (MAP) Pulse Ox O2 Delivery O2 Flow Rate FiO2 05/07/18 12:00 97.7 66 16 184/77 (112) 95 05/07/18 08:00 98.0 65 18 186/76 (112) 97 05/07/18 04:00 98.5 69 18 150/72 (98) 97 05/07/18 00:05 53 05/07/18 00:00 98.3 69 18 157/75 (102) 97 05/06/18 22:08 18 05/06/18 20:00 67 05/06/18 20:00 98.1 66 18 177/74 (108) 95 05/06/18 16:00 97.9 69 17 165/72 (103) 96 I/O 05/06/18 05/06/18 05/06/18 05/07/18 05/07/18 05/07/18 07:00 15:00 23:00 07:00 15:00 23:00 Intake Total 1250 ml 200 ml 1260 ml 240 ml Output Total 200 ml 350 ml 650 ml Balance 1250 ml 0 ml 910 ml -410 ml Intake Oral 0 ml 960 ml 240 ml IV Total 1250 ml 200 ml 300 ml Output Urine Total 200 ml 350 ml 650 ml # Voids 3 # Bowel Movements 5 1 0 Result Diagram: 05/07/18 0610 05/07/18 0610 Objective Remarks GENERAL: Sleeping, wakes up for exam. Appears comfortable. SKIN: Warm and dry. HEAD: Normocephalic. EYES: No scleral icterus. No injection or drainage. NECK: Supple, trachea midline. No JVD. CARDIOVASCULAR: Regular rate and rhythm without murmurs, gallops, or rubs. RESPIRATORY: Breath sounds equal bilaterally. No accessory muscle use. GASTROINTESTINAL: Abdomen soft, non-tender, nondistended. MUSCULOSKELETAL: No cyanosis, or edema. Right lower extremity with first toe gangrene, seen surrounding erythema and edema. Unchanged BACK: Nontender without obvious deformity. No CVA tenderness. A/P Assessment and Plan //Cellulitis failed outpatient treatment/peripheral vascular disease/ claudication Patient with cellulitis that is persistent despite compliance with Bactrim Vancomycin/Zosyn Podiatry consulted, appreciate assistance CTA significant for occlusion of the right external iliac artery, distal right common femoral artery and right superficial fundus artery with reconstitution of the right popliteal artery. Patient with symptoms consistent with claudication vascular surgery consulted, appreciate recommendations. = Unfortunately patient had poor prep and could not do colonoscopy. No signs of acute bleeding on EGD. Continue vancomycin, Zosyn. Podiatry following. Will need revascularization after GI workup. Appreciate vascular surgery assistance. = Patient has not had adequate GoLYTELY. Nursing to inform GI. Informed patient that he needs to have colonoscopy prior to undergoing revascularization and surgery to right foot = S post colonoscopy with diverticulosis. Further plan per vascular surgery and podiatry. = Plan for revascularization tomorrow. Appreciate vascular surgery assistance. //GI bleed/symptomatic anemia Patient Hemoccult-positive in the ED with severe anemia Transfuse 2 units packed red blood cells Gastroenterology consulted, appreciate assistance N.p.o. IV Protonix = Again recent drank inadequate prep. Discussed with patient. He will need colonoscopy prior to undergoing surgical intervention on right foot. = 05/06. Colonoscopy with diverticulosis. Will start on iron supplementation. Iron studies pending. = Continue iron supplementation. Need to follow-up with GI as outpatient. // Hypertension Patient not on any antihypertensives at this time As needed clonidine = 05/03. Systolic blood pressures elevated. Will start clonidine. = Continue to monitor. = Systolic blood pressure elevated in the 180s. We will start clonidine 0.1 mg p.o. twice daily. Continue amlodipine started here as well. = Blood pressure acceptable. Continue to monitor. //Hypokalemia. 3.1. Replace and monitor. FEN diet as per GI Electrolytes: Monitor and replete as needed Holding pharmacologic anticoagulation for possible procedure Discharge Planning Status post colonoscopy with diverticulosis. Will need treatment for anemia Pending right lower extremity revascularization by vascular surgery, surgery by podiatry. We will need clearance by podiatry, vascular surgery. Lives at home and is independent with ADLs Rodney Hernandez MD May 07, 2018 14:47
[2018-05-07] MEDS: NS + KCL 20 MEQ INJ 1,000 ML IV SCH (16:45)
[2018-05-07] MEDS ORDERED: POTASSIUM CHLORIDE INJ 30 MEQ in SODIUM CHLOR 0.9% 1000 ML INJ 1,000 ML IV SCH (21:45)
[2018-05-08 00:10] VITALS: BP 153/67; PULSE 61; RESP 18; TEMP 98.5; O2SAT 93
[2018-05-08] MEDS ORDERED: PHARMACY ORDERED LAB ONE (03:45)
[2018-05-08 04:00] VITALS: BP 167/81; PULSE 59; RESP 16; TEMP 97.9; O2SAT 97
[2018-05-08] MEDS: ACETAMINOPHEN/HYDROcodone 325 MG/7.5 MG TAB PO PRN ×2 (04:10→17:38)
[2018-05-08] MEDS: PIPERACIL-TAZO 3.375 GM PREMIX 50 ML IV SCH ×4 (04:10→21:24)
[2018-05-08] MEDS: VANCOMYCIN 1,000 MG/NS 250 ML IV SCH ×4 (04:11→17:36)
[2018-05-08] MEDS ORDERED: SODIUM CHLORID 0.9% 500 ML IV PRN (06:45)
[2018-05-08] MEDS ORDERED: METOPROLOL TARTRATE 25 MG TAB PO PRN (06:45)
[2018-05-08] MEDS ORDERED: LACTATED RINGER'S 1000 ML IV PRN (06:45)
[2018-05-08] MEDS ORDERED: CHLORHEXIDINE GLUCONATE 2 % 1 PACK (2 CLOTHS) TOPICAL PRN (06:45)
[2018-05-08] MEDS ORDERED: POVIDONE IODINE 5% (ANTISEPSIS KIT) 4 APPLICATIONS EACH NARE PRN (06:45)
[2018-05-08 08:00] VITALS: BP 173/73; PULSE 62; RESP 16; TEMP 97.7; O2SAT 94
[2018-05-08] MEDS: SODIUM CHLORIDE 0.9% FLUSH 10 ML FLUSH IV FLUSH SCH ×2 (08:19→21:24)
[2018-05-08] MEDS: PANTOPRAZOLE SODIUM 40 MG VIAL IV PUSH SCH ×2 (08:19→21:23)
[2018-05-08] MEDS: amLODIPine BESYLATE 5 MG TAB PO SCH (08:19)
[2018-05-08] MEDS: cloNIDine HCL 0.1 MG TAB PO SCH ×2 (08:19→21:23)
[2018-05-08] MEDS: NS + KCL 20 MEQ INJ 1,000 ML IV SCH (08:25)
[2018-05-08] MEDS: POLYETHYLENE GLYCOL 17 GM PKG PO SCH (08:30)
[2018-05-08] MEDS: FERROUS SULFATE 325 MG (65 MG ELEMENTAL IRON) TAB PO SCH ×2 (09:00→21:23)
[2018-05-08] MEDS ORDERED: BUPIVACAINE HCL PF 0.5% 30 ML VIAL ONE (09:25)
[2018-05-08] MEDS ORDERED: THROMBIN (TOPICAL) 20,000 UNIT SPRAY KIT ONE (09:25)
[2018-05-08] MEDS ORDERED: HEPARIN-NS/PF INJ 500 ML ONE (09:25)
[2018-05-08] MEDS ORDERED: PROTAMINE SULFATE 50 MG/5 ML VIAL ONE ×2 (09:25→11:20)
[2018-05-08] MEDS ORDERED: ceFAZolin 2 GM PREMIX 50 ML ONE (09:25)
[2018-05-08] MEDS ORDERED: HEPARIN SODIUM - IV 10,000 UNITS/10 ML VIAL ONE ×2 (09:25→11:20)
[2018-05-08] MEDS ORDERED: IOHEXOL 300 INJ 50 ML IV ONE ×2 (10:54→11:59)
[2018-05-08] MEDS ORDERED: SODIUM CHLORID 0.9% 500 ML INJ 500 ML IV ONE (12:00)
[2018-05-08] MEDS ORDERED: ONDANSETRON HCL 4 MG/2 ML VIAL IV ONE (12:00)
[2018-05-08] MEDS ORDERED: PROPOFOL 200 MG/20 ML AMP IV ONE (12:00)
[2018-05-08] MEDS ORDERED: ROCURONIUM INJ 50 MG/5 ML SYRINGE IV PUSH ONE (12:00)
[2018-05-08] MEDS ORDERED: NORMOSOL R INJ 2,000 ML IV ONE (12:00)
[2018-05-08] MEDS ORDERED: ESMOLOL HCL 100 MG/10 ML VIAL IV ONE (12:00)
[2018-05-08] MEDS ORDERED: LIDOCAINE HCL 1% PF 5 ML SYRINGE OTHER ONE (12:00)
[2018-05-08] MEDS ORDERED: ePHEDrine/NS 25 MG/5 ML SYRINGE IV ONE (12:00)
[2018-05-08] MEDS ORDERED: DEXAMETHASONE SOD PHOS 4 MG/ML VIAL IV ONE (12:00)
--- NOTE | 2018-05-08 13:27 | HHI.PR ---
cc: Glenroy Ly MD; Fabrice Sommers DPM Immediate Post Op Note Procedure Date: May 08, 2018 Pre Op Diagnosis: PAD, R LE tissue loss Post Op Diagnosis: PAD, R LE tissue loss Surgeon: Glenroy Ly Clinical Radiologist(s): Glenroy Wright Procedure: 1. Aortogram w/ R LE angiogram 2. L EIA NEWS VIDEOTAPE EDITOR (6mm) 3. L SUCTION OPERATOR angioseal 4. R EIA NEWS VIDEOTAPE EDITOR/stent (8x80, 8x40) 5. R ilioprofunda bypass with 8mm Dacron 6. R SUCTION OPERATOR-BK pop bypass with cryo Findings: significant inflow and outflow occlusive disease Additional Information: palpable DP at conclusion of case Complications: none Specimen(s) removed: none for pathology Estimated blood loss: 100mL Anesthesia: General Drains: None Fluids: 1300mL IVF Urinary Output (mLs): 650 Patient to: PACU Patient Condition: Good Implant/Devices: SEE IMPLANT LOG (if applicable) Date/Time of Procedure: SEE SURGICAL CARE RECORD Glenroy Ly MD May 08, 2018 13:27
[2018-05-08] MEDS ORDERED: DO NOT ADM ANY ANTICOAGULANT DRUGS PRN (14:00)
[2018-05-08] MEDS ORDERED: MIDAZOLAM HCL 2 MG/2 ML VIAL ONE (14:07)
[2018-05-08] MEDS ORDERED: *morphine SULFATE 4 MG/ML PERIprocedure ONLY ONE (14:18)
[2018-05-08] MEDS ORDERED: *MEPERIDINE 25 MG INJ VIAL PERIprocedural Use ONLY ONE (14:34)
--- NOTE | 2018-05-08 14:48 | HHI.PR ---
Subjective Remarks Patient seen after surgery. Denies any chest pain or shortness of breath. Denies nausea vomiting. Objective Vital Signs Date Time Temp Pulse Resp B/P (MAP) Pulse Ox O2 Delivery O2 Flow Rate FiO2 05/08/18 13:56 97.6 80 18 135/59 (84) 100 Nasal Cannula 3 05/08/18 13:36 97.6 80 18 135/59 (84) 100 Nasal Cannula 3 05/08/18 08:00 97.7 62 16 173/73 (106) 94 05/08/18 04:00 97.9 59 16 167/81 (109) 97 05/08/18 00:10 98.5 61 18 153/67 (95) 93 05/07/18 23:42 64 05/07/18 19:45 97.6 67 16 132/60 (84) 95 05/07/18 16:00 98.2 56 18 139/62 (87) 100 I/O 05/07/18 05/07/18 05/07/18 05/08/18 05/08/18 05/08/18 06:59 14:59 22:59 06:59 14:59 22:59 Intake Total 240 ml 150 ml 1020 ml 1300 ml Output Total 650 ml 1100 ml 600 ml 1075 ml Balance -410 ml 150 ml -80 ml -600 ml 225 ml Intake Oral 240 ml 720 ml IV Total 150 ml 300 ml Other 1300 ml Output Urine Total 650 ml 1100 ml 600 ml 975 ml Estimated Blood Loss 100 ml # Voids 1 # Bowel Movements 0 1 Result Diagram: 05/07/18 0610 05/07/18 0610 Objective Remarks GENERAL: Awake, somnolent after surgery. Appears comfortable. SKIN: Warm and dry. HEAD: Normocephalic. EYES: No scleral icterus. No injection or drainage. NECK: Supple, trachea midline. No JVD. CARDIOVASCULAR: Regular rate and rhythm without murmurs, gallops, or rubs. RESPIRATORY: Breath sounds equal bilaterally. No accessory muscle use. GASTROINTESTINAL: Abdomen soft, non-tender, nondistended. MUSCULOSKELETAL: No cyanosis, or edema. Right lower extremity with first toe gangrene, seen surrounding erythema and edema. Skin appears more pink and perfused today BACK: Nontender without obvious deformity. No CVA tenderness. A/P Assessment and Plan //Cellulitis failed outpatient treatment/peripheral vascular disease/ claudication Patient with cellulitis that is persistent despite compliance with Bactrim Vancomycin/Zosyn Podiatry consulted, appreciate assistance CTA significant for occlusion of the right external iliac artery, distal right common femoral artery and right superficial fundus artery with reconstitution of the right popliteal artery. Patient with symptoms consistent with claudication vascular surgery consulted, appreciate recommendations. = Unfortunately patient had poor prep and could not do colonoscopy. No signs of acute bleeding on EGD. Continue vancomycin, Zosyn. Podiatry following. Will need revascularization after GI workup. Appreciate vascular surgery assistance. = Patient has not had adequate GoLYTELY. Nursing to inform GI. Informed patient that he needs to have colonoscopy prior to undergoing revascularization and surgery to right foot = S post colonoscopy with diverticulosis. Further plan per vascular surgery and podiatry. = Plan for revascularization tomorrow. Appreciate vascular surgery assistance. = Status post revascularization. Follow-up podiatry recommendations. Appreciate assistance. //GI bleed/symptomatic anemia Patient Hemoccult-positive in the ED with severe anemia Transfuse 2 units packed red blood cells Gastroenterology consulted, appreciate assistance N.p.o. IV Protonix = Again recent drank inadequate prep. Discussed with patient. He will need colonoscopy prior to undergoing surgical intervention on right foot. = 05/06. Colonoscopy with diverticulosis. Will start on iron supplementation. Iron studies pending. = Continue iron supplementation. Need to follow-up with GI as outpatient. // Hypertension Patient not on any antihypertensives at this time As needed clonidine = 05/03. Systolic blood pressures elevated. Will start clonidine. = Continue to monitor. = Systolic blood pressure elevated in the 180s. We will start clonidine 0.1 mg p.o. twice daily. Continue amlodipine started here as well. = Blood pressure acceptable. Continue to monitor. //Hypokalemia. 3.1. Replace and monitor. = Today's a.m. labs are still pending FEN diet as per GI Electrolytes: Monitor and replete as needed Holding pharmacologic anticoagulation for possible procedure Discharge Planning Status post colonoscopy with diverticulosis. Will need treatment for anemia Pending right lower extremity revascularization by vascular surgery, surgery by podiatry. We will need clearance by podiatry, vascular surgery. Lives at home and is independent with ADLs Rodney Hernandez MD May 08, 2018 14:48
[2018-05-08 15:51] LABS: AUTOMATED NEUTROPHIL # 12.2 TH/MM3 (1.8-7.7); BASOPHIL % 0.3 % (0.0-2.0); EOSINOPHIL % 0.2 % (0.0-4.0); HEMATOCRIT 30.6 % (39.0-51.0); HEMOGLOBIN 8.8 GM/DL (13.0-17.0); LYMPH % 4.9 % (9.0-44.0); LYMPHOCYTE # 0.6 TH/MM3 (1.0-4.8); MEAN CELL VOLUME 65.7 FL (80.0-100.0); MEAN CORPUSCULAR HEMOGLOBIN 18.8 PG (27.0-34.0); MEAN PLATELET VOLUME 8.6 FL (7.0-11.0); MONO % 1.6 % (0.0-8.0); MONOCYTE # 0.2 TH/MM3 (0-0.9); PLATELET COUNT 366 TH/MM3 (150-450); RED BLOOD COUNT 4.66 MIL/MM3 (4.50-5.90); RED CELL DISTRIBUTION WIDTH 30.8 % (11.6-17.2); WHITE BLOOD COUNT 13.1 TH/MM3 (4.0-11.0)
[2018-05-08 15:54] LABS: MEAN CORPUSCULAR HGB CONC 28.6 % (32.0-36.0)
[2018-05-08 16:00] VITALS: BP 118/60; PULSE 79; RESP 16; TEMP 98.1; O2SAT 90
[2018-05-08 16:39] LABS: ALBUMIN 2.4 GM/DL (3.4-5.0); BICARBONATE 24.6 MEQ/L (21.0-32.0); CALCIUM 7.7 MG/DL (8.5-10.1); CREATININE 0.47 MG/DL (0.60-1.30); MAGNESIUM 1.9 MG/DL (1.5-2.5); PHOSPHORUS 3.1 MG/DL (2.5-4.9)
[2018-05-08] MEDS: IRON SUCROSE INJ 100 MG in SODIUM CHLORIDE 0.9% INJ 100 ML IV SCH (16:41)
[2018-05-08 16:44] LABS: OVALOCYTES 1+ (NORMAL)
--- NOTE | 2018-05-08 17:12 | MP ---
cc: Glenroy Ly MD DATE OF OPERATION: 05/08/2018 PREOPERATIVE DIAGNOSIS: Right lower extremity ischemia, tissue loss, peripheral arterial occlusive disease. POSTOPERATIVE DIAGNOSIS: Right lower extremity ischemia, tissue loss, peripheral arterial occlusive disease. PROCEDURES: 1. Aortogram with right lower extremity angiogram. 2. Left common femoral Angio-Seal. 3. Left external iliac artery angioplasty of 6 mm. 4. Right external iliac artery angioplasty and stent with an 8 x 80, 8 x 40 self-expanding stents. 5. Right ilial profunda bypass with 8 mm Dacron. 6. Right femoral to below-knee popliteal artery bypass with cryopreserved tissue. INDICATIONS FOR PROCEDURE: Mr. Carrasco is a 62-year-old gentleman with right extremity tissue loss, nonpalpable pulses and ABIs that are very diminished. He was taken to the operating room for angiographic evaluation and revascularization. There was no prior catheterization-based imaging available for my review. DESCRIPTION OF PROCEDURE: Informed consent was obtained. The patient and was taken to the operating room and placed supine on the operating table. An appropriate timeout was taken to ensure the patient's identity, the operative site and the planned procedure. He was on vancomycin and Zosyn and these will be continued postoperatively for ongoing therapy. Everyone in the room agreed with the timeout and we proceeded. He was prepped from the nipples to his toes. A vertical incision was made in the patient's right groin and carried down through subcutaneous tissue with electrocautery. The external iliac artery, common femoral artery, profunda and superficial femoral artery were all dissected free and the side branches were either ligated or looped for vascular access. The patient was systemically heparinized and throughout the remainder of the case the ACT was kept greater than 250. The external iliac artery was controlled with profunda clamp and the profunda and SFA were controlled with profunda clamps. The common femoral artery was resected and the profunda was endarterectomized. The external iliac artery was endarterectomized. An 8 mm Dacron was sewn once spatulated proximal to the external iliac artery and distally to the profunda femoris artery. There was minimal inflow noted in the graft secondary to the known occlusion of the external iliac artery. The clamps were released and there was hemostasis in the groin. We dissected the SFA down, but this was noted to be totally occluded and as such, it was transected and oversewn with 5-0 Prolene suture. A 21-gauge micropuncture was used to access the graft and this was exchanged using Seldinger technique for a micropuncture sheath through which a 0.035 Glidewire was introduced. The micropuncture sheath was changed for a 6-Estonian sheath. Multiple attempts to retrograde recanalized the external iliac artery were unsuccessful. The wire, catheter and sheath were removed and the graftotomy was closed with a 5-0 Prolene suture. A 21-gauge micropuncture needle was used to access the left common femoral artery. This was exchanged using Seldinger technique for a micropuncture sheath, through which a 0.035 Glidewire was introduced. The micropuncture sheath was exchanged for a 5-Estonian sheath and the iliac angiogram was obtained through the sheath. This showed there was a high-grade near-occlusive stenosis of the left external iliac artery that looked prohibitive to passing any devices down to the right hand side. As such, it was angioplastied with a 6 mm balloon. The completion angiogram on the left showed excellent result without any recoil or extravasation. The Glidewire was advanced to the aorta and a VCF catheter was advanced over this and aortogram and pelvic arteriogram was obtained. This showed the patient had a small orifice of the proximal right external iliac artery and a 0.035 Glidewire was advanced down to this. The VCF catheter was advanced over this and using the [place] and VCF catheter, we were able to recanalize the external iliac artery and indeed put the VCF catheter into the newly created iliofemoral bypass graft on the right and this was confirmed angiographically. A 0.035 Whalen wire was then introduced. The VCF catheter and 5-Estonian sheath were removed and a 6-Estonian, 55-cm Armin sheath was introduced. The external iliac artery was angioplastied and stented with 8 x 80 and 8 x 40 stents. They were post-dilated to 7 mm. Completion angiograms showed excellent result without any recoil or extravasation and there was good inline flow to the profunda. There was a nice palpable pulse in the right groin at this time. The sheath was then advanced to the right common femoral artery and the right lower extremity angiogram was obtained. The angiogram showed the patient had profunda-based collaterals giving rise to the below-knee popliteal artery with 2-vessel runoff to the foot. The wire, catheter and sheath were removed and the left groin was closed with an Angio-Seal. An incision was made on the below-knee popliteal artery area in the proximal calf on the medial aspect. This was carried down to subcutaneous tissue with electrocautery. The muscle was retracted posteriorly and the below-knee popliteal artery was identified. The popliteal vein was identified. It was noted that he had a thrombus in this popliteal vein. A tunnel was then created between the 2 incisions and the cryopreserved tissue was brought up onto the field and prepared in standard fashion. Proximal and distal control of the ilial profunda graft was obtained with profunda clamps and a longitudinal arteriotomy was made with an 11 blade, extended with Cosme scissors. The vein was spatulated and sewn end-to-side to the graft with running 5-0 Prolene suture. At the completion, the incision flushed and noted to be hemostatic. The vein was distended, marked for orientation and passed through the tunnel, taking caution not to twist it. Proximal and distal control of the below knee popliteal artery were obtained with profunda clamps and longitudinal arteriotomy was made with an 11 blade, extended with [place] scissors. The vein was cut to an appropriate length, spatulated and sewn end-to-side with running 6-0 Prolene suture. At completion, the wound was flushed and noted to be hemostatic. There was actually a palpable pulse in the foot. The wounds were made hemostatic. The heparin was reversed with protamine. The wounds were closed with 2-0 Polysorb, 3-0 Polysorb and 4-0 Monocryl. The sponge and needle counts were correct at the end of the case. I was present and scrubbed and performed the entire procedure. MD BREE Lamar/OSMANY , 04:04 PM , 05:11 PM
[2018-05-08 20:00] VITALS: BP 153/67; PULSE 84; RESP 18; TEMP 97.4; O2SAT 92
[2018-05-08] MEDS: MORPHINE SULFATE 4 MG/ML INJ IV PUSH PRN (21:22)
[2018-05-09] VITALS (7 sets, daily range): BP systolic 117–148; BP diastolic 58–85; PULSE 69–80; RESP 16–20; TEMP 97.4–98.8; O2SAT 91–93
[2018-05-09] MEDS: NS + KCL 20 MEQ INJ 1,000 ML IV SCH (01:22)
[2018-05-09] MEDS: PIPERACIL-TAZO 3.375 GM PREMIX 50 ML IV SCH ×4 (01:22→21:52)
[2018-05-09] MEDS: VANCOMYCIN 1,000 MG/NS 250 ML IV SCH ×2 (04:23)
--- NOTE | 2018-05-09 06:33 | PD.VS.PN ---
Subjective POD #: 1 Procedure(s): R groin reconstruction, iliac stent, R fem-BK pop Subjective/Hospital Course c/o leg being sore but otherwise ok. pain controlled with medication Objective Vitals/I&O Date Time Temp Pulse Resp B/P (MAP) Pulse Ox O2 Delivery O2 Flow Rate FiO2 05/09/18 04:00 97.6 73 16 117/59 (78) 92 05/09/18 00:00 97.4 69 16 130/69 (89) 92 05/08/18 20:00 97.4 84 18 153/67 (95) 92 05/08/18 16:00 98.1 79 16 118/60 (79) 90 05/08/18 14:56 97.6 80 20 135/61 (85) 91 Nasal Cannula 3 05/08/18 14:45 80 20 135/61 (85) 91 Nasal Cannula 3 05/08/18 14:30 88 20 148/65 (92) 94 Nasal Cannula 3 05/08/18 14:15 84 18 141/65 (90) 90 Nasal Cannula 3 05/08/18 13:56 97.6 80 18 135/59 (84) 100 Nasal Cannula 3 05/08/18 08:00 97.7 62 16 173/73 (106) 94 Exam: R groin wound covered with Prevena - soft and nontender, no ecchymoses R calf incision c/d/i foot warm 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 Pulses: palpable DP Laboratory Laboratory Tests Test 05/08/18 15:40 White Blood Count 13.1 Red Blood Count 4.66 Hemoglobin 8.8 Hematocrit 30.6 Mean Corpuscular Volume 65.7 Mean Corpuscular Hemoglobin 18.8 Mean Corpuscular Hemoglobin Concent 28.6 Red Cell Distribution Width 30.8 Platelet Count 366 Mean Platelet Volume 8.6 Neutrophils (%) (Auto) 93.0 Lymphocytes (%) (Auto) 4.9 Monocytes (%) (Auto) 1.6 Eosinophils (%) (Auto) 0.2 Basophils (%) (Auto) 0.3 Neutrophils # (Auto) 12.2 Lymphocytes # (Auto) 0.6 Monocytes # (Auto) 0.2 Eosinophils # (Auto) 0.0 Basophils # (Auto) 0.0 CBC Comment AUTO DIFF Differential Comment AUTO DIFF CONFIRMED Platelet Estimate NORMAL Platelet Morphology Comment NORMAL Basophilic Stippling FAINT Ovalocytes 1+ Blood Urea Nitrogen 2 Creatinine 0.47 Random Glucose 124 Albumin 2.4 Calcium Level 7.7 Phosphorus Level 3.1 Magnesium Level 1.9 Sodium Level 139 Potassium Level 3.3 Chloride Level 104 Carbon Dioxide Level 24.6 Anion Gap 10 Estimat Glomerular Filtration Rate 181 Date/Time Source Procedure Growth Status 05/02/18 20:00 Wound Toe Gram Stain - Final Complete 05/02/18 20:00 Wound Culture - Final Staphylococcus Aureus Pseudo Fluorescens/Putida Acinetobacter Baumannii/Haemol Complete Assessment and Plan Assessment: (1) Peripheral vascular disease Status: Acute Plan POD#1 s/p R groin reconstruction, iliac stent, and distal bypass palpable DP 1. D/C Ryan 2. OOB/PT 3. resume all home meds including ASA, statin, plavix 4. Defer to podiatry re: toe tissue loss treatment Discharge Planning likely 1-2 days depending on pain control, mobility Glenroy Ly MD May 09, 2018 06:33
[2018-05-09] MEDS: ACETAMINOPHEN/HYDROcodone 325 MG/7.5 MG TAB PO PRN ×3 (06:42→16:37)
[2018-05-09] MEDS: amLODIPine BESYLATE 5 MG TAB PO SCH (08:47)
[2018-05-09] MEDS: ATORVASTATIN 40 MG TAB PO SCH (08:47)
[2018-05-09] MEDS: POLYETHYLENE GLYCOL 17 GM PKG PO SCH (08:47)
[2018-05-09] MEDS: FERROUS SULFATE 325 MG (65 MG ELEMENTAL IRON) TAB PO SCH ×2 (08:48→21:52)
[2018-05-09] MEDS: PANTOPRAZOLE SODIUM 40 MG VIAL IV PUSH SCH ×2 (08:48→21:52)
[2018-05-09] MEDS: cloNIDine HCL 0.1 MG TAB PO SCH ×2 (08:48→21:52)
[2018-05-09] MEDS: IRON SUCROSE INJ 100 MG in SODIUM CHLORIDE 0.9% INJ 100 ML IV SCH (08:48)
[2018-05-09] MEDS: ASPIRIN 81 MG CHEW TAB PO SCH (08:48)
[2018-05-09] MEDS: SODIUM CHLORIDE 0.9% FLUSH 10 ML FLUSH IV FLUSH SCH ×2 (08:49→21:52)
[2018-05-09 09:04] LABS: HEMATOCRIT 24.4 % (39.0-51.0); HEMOGLOBIN 7.3 GM/DL (13.0-17.0); MEAN CELL VOLUME 66.1 FL (80.0-100.0); MEAN CORPUSCULAR HEMOGLOBIN 19.9 PG (27.0-34.0); MEAN PLATELET VOLUME 8.6 FL (7.0-11.0); PLATELET COUNT 334 TH/MM3 (150-450); RED CELL DISTRIBUTION WIDTH 30.9 % (11.6-17.2); WHITE BLOOD COUNT 10.1 TH/MM3 (4.0-11.0)
[2018-05-09 09:51] LABS: CREATININE 0.62 MG/DL (0.60-1.30)
[2018-05-09 09:52] LABS: BICARBONATE 24.3 MEQ/L (21.0-32.0); CALCIUM 7.7 MG/DL (8.5-10.1)
--- NOTE | 2018-05-09 10:53 | PD.POD ---
Subjective Podiatric Problems Pt reports pain in the right leg s/p revascularization procedure yesterday. He denies any pain in the hallux currently. He denies any n/v/f/h/c/sob. Pain score: 6 Past Med/Surg/Social History Social History Smoking Status: Current Every Day Smoker Objective Vital Signs Vital Signs Date Time Temp Pulse Resp B/P (MAP) Pulse Ox O2 Delivery O2 Flow Rate FiO2 05/09/18 08:00 97.8 74 18 142/85 (104) 92 05/09/18 04:00 97.6 73 16 117/59 (78) 92 05/09/18 00:00 97.4 69 16 130/69 (89) 92 05/08/18 20:00 97.4 84 18 153/67 (95) 92 05/08/18 16:00 98.1 79 16 118/60 (79) 90 05/08/18 14:56 97.6 80 20 135/61 (85) 91 Nasal Cannula 3 05/08/18 14:45 80 20 135/61 (85) 91 Nasal Cannula 3 05/08/18 14:30 88 20 148/65 (92) 94 Nasal Cannula 3 05/08/18 14:15 84 18 141/65 (90) 90 Nasal Cannula 3 05/08/18 13:56 97.6 80 18 135/59 (84) 100 Nasal Cannula 3 Coded Allergies: No Known Allergies (Unverified , 05/02/18) Exam-Podiatry Remarks Palpable pulses and foot is well perfused. Dorsal hallux distal half with full thickness eschar/dry gangrene. Plantar hallux with ischemic tissue but not demarcated. No erythema. No drainage. Assessment & Plan A/P 1) right hallux dry gangrene and ischemia -pt declining any surgical intervention for the toe at this time. Given that the plantar skin has not demarcated yet, I am not fully opposed to this. He was educated on signs and symptoms of infection and was clearly informed that he would need to be closely followed by a ebd teacher as an outpatient and will most likely need an amputation at some point in the future. -no bandages need to the toe -ok for d/c from podiatry standpoint given patients stance on surgery -would advise oral abx given recent vascular surgery and presence of dry gangrene -pt will need closely f/u with PCP and a ebd teacher in his insurance network, preferably arranged before d/c Jenni Fontanez DPM May 09, 2018 10:53
[2018-05-09] MEDS: VANCOMYCIN INJ 1,250 MG in SODIUM CHLOR 0.9% 250 ML INJ 250 ML IV SCH (16:37)
[2018-05-09] MEDS ORDERED: SODIUM CHLOR 0.9% 250 ML INJ 250 ML IV ONE (17:15)
--- NOTE | 2018-05-09 17:19 | HHI.PR ---
Subjective Remarks Patient seen this afternoon around 1 PM. Patient says he is feeling all right. Reports pain control. Denies any chest pain shortness of breath. Patient agrees to undergo right first toe amputation by podiatry. Objective Vital Signs Date Time Temp Pulse Resp B/P (MAP) Pulse Ox O2 Delivery O2 Flow Rate FiO2 05/09/18 16:00 98.2 74 16 118/70 (86) 93 05/09/18 12:00 98.1 76 18 135/58 (83) 91 05/09/18 08:00 97.8 74 18 142/85 (104) 92 05/09/18 07:55 73 05/09/18 04:00 97.6 73 16 117/59 (78) 92 05/09/18 00:00 97.4 69 16 130/69 (89) 92 05/08/18 20:00 97.4 84 18 153/67 (95) 92 I/O 05/08/18 05/08/18 05/08/18 05/09/18 05/09/18 05/09/18 07:00 15:00 23:00 07:00 15:00 23:00 Intake Total 1300 ml 105 ml 150 ml Output Total 600 ml 1075 ml 500 ml 800 ml Balance -600 ml 225 ml -395 ml -800 ml 150 ml Intake Oral 0 ml IV Total 105 ml 150 ml Other 1300 ml Output Urine Total 600 ml 975 ml 500 ml 800 ml Estimated Blood Loss 100 ml # Voids 1 Result Diagram: 05/09/18 0807 05/09/18 0807 Objective Remarks GENERAL: Awake, somnolent after surgery. Appears comfortable. SKIN: Warm and dry. HEAD: Normocephalic. EYES: No scleral icterus. No injection or drainage. NECK: Supple, trachea midline. No JVD. CARDIOVASCULAR: Regular rate and rhythm without murmurs, gallops, or rubs. RESPIRATORY: Breath sounds equal bilaterally. No accessory muscle use. GASTROINTESTINAL: Abdomen soft, non-tender, nondistended. MUSCULOSKELETAL: No cyanosis, or edema. Right lower extremity with first toe gangrene, seen surrounding erythema and edema. Skin appears more pink and perfused todayno change. BACK: Nontender without obvious deformity. No CVA tenderness. A/P Assessment and Plan //Cellulitis failed outpatient treatment/peripheral vascular disease/ claudication Patient with cellulitis that is persistent despite compliance with Bactrim Vancomycin/Zosyn Podiatry consulted, appreciate assistance CTA significant for occlusion of the right external iliac artery, distal right common femoral artery and right superficial fundus artery with reconstitution of the right popliteal artery. Patient with symptoms consistent with claudication vascular surgery consulted, appreciate recommendations. = Unfortunately patient had poor prep and could not do colonoscopy. No signs of acute bleeding on EGD. Continue vancomycin, Zosyn. Podiatry following. Will need revascularization after GI workup. Appreciate vascular surgery assistance. = Patient has not had adequate GoLYTELY. Nursing to inform GI. Informed patient that he needs to have colonoscopy prior to undergoing revascularization and surgery to right foot = S post colonoscopy with diverticulosis. Further plan per vascular surgery and podiatry. = Plan for revascularization tomorrow. Appreciate vascular surgery assistance. = Status post revascularization. Follow-up podiatry recommendations. Appreciate assistance. = 05/09. Patient has agreed to amputation of gangrenous right first toe tomorrow. Appreciate podiatry assistance. //GI bleed/symptomatic anemia Patient Hemoccult-positive in the ED with severe anemia Transfuse 2 units packed red blood cells Gastroenterology consulted, appreciate assistance N.p.o. IV Protonix = Again recent drank inadequate prep. Discussed with patient. He will need colonoscopy prior to undergoing surgical intervention on right foot. = 05/06. Colonoscopy with diverticulosis. Will start on iron supplementation. Iron studies pending. = Continue iron supplementation. Need to follow-up with GI as outpatient. = 05/09. Hemoglobin down to 7.3 from 8.8 yesterday, likely secondary to surgical blood loss. No signs of acute bleeding. Administer 1 unit PRBCs today and follow-up tomorrow. // Hypertension Patient not on any antihypertensives at this time As needed clonidine = 05/03. Systolic blood pressures elevated. Will start clonidine. = Continue to monitor. = Systolic blood pressure elevated in the 180s. We will start clonidine 0.1 mg p.o. twice daily. Continue amlodipine started here as well. = Blood pressure acceptable. Continue to monitor. //Hypokalemia. = 3.4. Replace and monitor. FEN diet as per GI Electrolytes: Monitor and replete as needed Holding pharmacologic anticoagulation for possible procedure Discharge Planning Diverticulosis,anemia. Will need iron supplementation. Status post lower extremity revascularization by vascular surgery = Pending right first toe amputation by podiatry. We will need clearance by podiatry, vascular surgery. Lives at home and is independent with ADLs Rodney Hernandez MD May 09, 2018 17:19
[2018-05-09] MEDS ORDERED: POTASSIUM CHLORIDE 25 MEQ EFFERVESCENT TAB PO ONE (20:00)
[2018-05-10] VITALS (10 sets, daily range): BP systolic 92–180; BP diastolic 51–80; PULSE 64–83; RESP 16–20; TEMP 97.5–99.5; O2SAT 91–95
[2018-05-10] MEDS: PIPERACIL-TAZO 3.375 GM PREMIX 50 ML IV SCH ×4 (02:00→21:23)
[2018-05-10] MEDS: NS + KCL 20 MEQ INJ 1,000 ML IV SCH ×2 (04:46→08:50)
[2018-05-10] MEDS: VANCOMYCIN INJ 1,250 MG in SODIUM CHLOR 0.9% 250 ML INJ 250 ML IV SCH ×2 (04:46→17:23)
[2018-05-10] MEDS: cloNIDine HCL 0.1 MG TAB PO PRN (04:58)
[2018-05-10 06:30] LABS: BICARBONATE 23.2 MEQ/L (21.0-32.0); CALCIUM 7.5 MG/DL (8.5-10.1); CREATININE 0.57 MG/DL (0.60-1.30); MAGNESIUM 1.8 MG/DL (1.5-2.5); PHOSPHORUS 2.1 MG/DL (2.5-4.9)
[2018-05-10 06:33] LABS: AUTOMATED NEUTROPHIL # 8.1 TH/MM3 (1.8-7.7); BASOPHIL # 0.1 TH/MM3 (0-0.2); BASOPHIL % 0.9 % (0.0-2.0); EOSINOPHIL # 0.2 TH/MM3 (0-0.4); EOSINOPHIL % 1.7 % (0.0-4.0); HEMATOCRIT 29.3 % (39.0-51.0); HEMOGLOBIN 8.9 GM/DL (13.0-17.0); LYMPH % 16.2 % (9.0-44.0); MEAN CORPUSCULAR HEMOGLOBIN 21.2 PG (27.0-34.0); MEAN CORPUSCULAR HGB CONC 30.3 % (32.0-36.0); MEAN PLATELET VOLUME 8.9 FL (7.0-11.0); MONO % 14.6 % (0.0-8.0); MONOCYTE # 1.8 TH/MM3 (0-0.9); NEUT % 66.6 % (16.0-70.0); PLATELET COUNT 347 TH/MM3 (150-450); RED BLOOD COUNT 4.18 MIL/MM3 (4.50-5.90); RED CELL DISTRIBUTION WIDTH 32.1 % (11.6-17.2); WHITE BLOOD COUNT 12.2 TH/MM3 (4.0-11.0)
[2018-05-10] MEDS: PANTOPRAZOLE SODIUM 40 MG VIAL IV PUSH SCH ×2 (08:42→21:23)
[2018-05-10] MEDS: ATORVASTATIN 40 MG TAB PO SCH (08:42)
[2018-05-10] MEDS: ASPIRIN 81 MG CHEW TAB PO SCH (08:44)
[2018-05-10] MEDS: CLOPIDOGREL 75 MG TAB PO SCH (08:44)
[2018-05-10] MEDS: ACETAMINOPHEN/HYDROcodone 325 MG/7.5 MG TAB PO PRN ×3 (08:44→21:23)
[2018-05-10] MEDS: cloNIDine HCL 0.1 MG TAB PO SCH ×2 (08:44→21:23)
[2018-05-10] MEDS: amLODIPine BESYLATE 5 MG TAB PO SCH (08:44)
[2018-05-10] MEDS: POLYETHYLENE GLYCOL 17 GM PKG PO SCH (08:44)
[2018-05-10] MEDS: FERROUS SULFATE 325 MG (65 MG ELEMENTAL IRON) TAB PO SCH ×2 (08:44→21:23)
[2018-05-10] MEDS: SODIUM CHLORIDE 0.9% FLUSH 10 ML FLUSH IV FLUSH SCH ×2 (08:45→21:23)
--- NOTE | 2018-05-10 09:38 | PD.VS.PN ---
Subjective POD #: 2 Procedure(s): R groin reconstruction, iliac stent, R fem-BK pop Subjective/Hospital Course Pt w/o complaints of pain LE warm w/ motor intact Pt w/ strong palpable pulses R LE Incision intact w/o R/D/S/O R great toe necrotic Objective Vitals/I&O Date Time Temp Pulse Resp B/P (MAP) Pulse Ox O2 Delivery O2 Flow Rate FiO2 05/10/18 04:51 99.0 83 16 173/72 91 05/10/18 03:18 Automatic Cuff 05/10/18 01:25 98.9 83 16 160/80 91 05/10/18 01:10 98.9 83 17 149/66 93 05/10/18 00:00 98.9 83 20 149/66 (93) 93 05/09/18 20:00 98.8 80 20 148/67 (94) 93 05/09/18 16:00 98.2 74 16 118/70 (86) 93 05/09/18 12:00 98.1 76 18 135/58 (83) 91 05/10/18 05/10/18 05/10/18 07:00 15:00 23:00 Intake Total 525 ml Output Total 500 ml Balance 25 ml Exam: R LE incision intact w/o R/D/S/O Prevena wound vac R groin soft w/o hematoma or swelling LE warm w/ motor intact Palpable R DP/PT (2+) Laboratory Laboratory Tests Test 05/10/18 05:25 White Blood Count 12.2 Red Blood Count 4.18 Hemoglobin 8.9 Hematocrit 29.3 Mean Corpuscular Volume 70.0 Mean Corpuscular Hemoglobin 21.2 Mean Corpuscular Hemoglobin Concent 30.3 Red Cell Distribution Width 32.1 Platelet Count 347 Mean Platelet Volume 8.9 Neutrophils (%) (Auto) 66.6 Lymphocytes (%) (Auto) 16.2 Monocytes (%) (Auto) 14.6 Eosinophils (%) (Auto) 1.7 Basophils (%) (Auto) 0.9 Neutrophils # (Auto) 8.1 Lymphocytes # (Auto) 2.0 Monocytes # (Auto) 1.8 Eosinophils # (Auto) 0.2 Basophils # (Auto) 0.1 CBC Comment AUTO DIFF Blood Urea Nitrogen 4 Creatinine 0.57 Random Glucose 93 Albumin 2.0 Calcium Level 7.5 Phosphorus Level 2.1 Magnesium Level 1.8 Sodium Level 140 Potassium Level 3.5 Chloride Level 107 Carbon Dioxide Level 23.2 Anion Gap 10 Estimat Glomerular Filtration Rate 145 Date/Time Source Procedure Growth Status 05/02/18 20:00 Wound Toe Gram Stain - Final Complete 05/02/18 20:00 Wound Culture - Final Staphylococcus Aureus Pseudo Fluorescens/[place] Acinetobacter Baumannii/Haemol Complete Assessment and Plan Assessment: (1) Peripheral vascular disease Status: Acute Plan POD#2 s/p R groin reconstruction, iliac stent, and distal bypass Strong palpable R DP/PT Plan Continue CV risk factor modification- ASA, statin, Plavix D/c planning Continue PT/OOB/Ambulation Wound vac to R groin to be removed on MONDAY (05/14/18) in our out pt clinic Neli Burnett [facility] [phone] Discharge Planning 1-2 days Arranged out pt f/u Neli Burnett May 10, 2018 09:38
[2018-05-10] MEDS: MORPHINE SULFATE 4 MG/ML INJ IV PUSH PRN (10:12)
--- NOTE | 2018-05-10 10:37 | HHI.PR ---
Subjective Remarks Patient says he is feeling all right. Denies any chest pain shortness of breath. Denies nausea or vomiting. Denies any bleeding. Objective Vital Signs Date Time Temp Pulse Resp B/P (MAP) Pulse Ox O2 Delivery O2 Flow Rate FiO2 05/10/18 04:51 99.0 83 16 173/72 91 05/10/18 03:18 Automatic Cuff 05/10/18 01:25 98.9 83 16 160/80 91 05/10/18 01:10 98.9 83 17 149/66 93 05/10/18 00:00 98.9 83 20 149/66 (93) 93 05/09/18 20:00 98.8 80 20 148/67 (94) 93 05/09/18 16:00 98.2 74 16 118/70 (86) 93 05/09/18 12:00 98.1 76 18 135/58 (83) 91 I/O 05/09/18 05/09/18 05/09/18 05/10/18 05/10/18 05/10/18 07:00 15:00 23:00 07:00 15:00 23:00 Intake Total 150 ml 640 ml 525 ml Output Total 800 ml 500 ml Balance -800 ml 150 ml 640 ml 25 ml Intake Oral 240 ml 125 ml IV Total 150 ml 400 ml Packed Cells 400 ml Output Urine Total 800 ml 500 ml # Bowel Movements 0 Result Diagram: 05/10/1852405/10/18 05 Objective Remarks GENERAL: Awake, alert. Appears comfortable. No change on exam from yesterday. SKIN: Warm and dry. HEAD: Normocephalic. EYES: No scleral icterus. No injection or drainage. NECK: Supple, trachea midline. No JVD. CARDIOVASCULAR: Regular rate and rhythm without murmurs, gallops, or rubs. RESPIRATORY: Breath sounds equal bilaterally. No accessory muscle use. GASTROINTESTINAL: Abdomen soft, non-tender, nondistended. MUSCULOSKELETAL: No cyanosis, or edema. Right lower extremity with first toe gangrene, seen surrounding erythema and edema. Unchanged. BACK: Nontender without obvious deformity. No CVA tenderness. A/P Assessment and Plan //Cellulitis failed outpatient treatment/peripheral vascular disease/ claudication Patient with cellulitis that is persistent despite compliance with Bactrim Vancomycin/Zosyn Podiatry consulted, appreciate assistance CTA significant for occlusion of the right external iliac artery, distal right common femoral artery and right superficial fundus artery with reconstitution of the right popliteal artery. Patient with symptoms consistent with claudication vascular surgery consulted, appreciate recommendations. = Unfortunately patient had poor prep and could not do colonoscopy. No signs of acute bleeding on EGD. Continue vancomycin, Zosyn. Podiatry following. Will need revascularization after GI workup. Appreciate vascular surgery assistance. = Patient has not had adequate GoLYTELY. Nursing to inform GI. Informed patient that he needs to have colonoscopy prior to undergoing revascularization and surgery to right foot = S post colonoscopy with diverticulosis. Further plan per vascular surgery and podiatry. = Plan for revascularization tomorrow. Appreciate vascular surgery assistance. = Status post revascularization. Follow-up podiatry recommendations. Appreciate assistance. = 05/09. Patient has agreed to amputation of gangrenous right first toe tomorrow. Appreciate podiatry assistance. = 05/10. Pending amputation by podiatry. //GI bleed/symptomatic anemia Patient Hemoccult-positive in the ED with severe anemia Transfuse 2 units packed red blood cells Gastroenterology consulted, appreciate assistance N.p.o. IV Protonix = Again recent drank inadequate prep. Discussed with patient. He will need colonoscopy prior to undergoing surgical intervention on right foot. = 05/06. Colonoscopy with diverticulosis. Will start on iron supplementation. Iron studies pending. = Continue iron supplementation. Need to follow-up with GI as outpatient. = 05/09. Hemoglobin down to 7.3 from 8.8 yesterday, likely secondary to surgical blood loss. No signs of acute bleeding. Administer 1 unit PRBCs today and follow-up tomorrow. = 05/10. Hemoglobin improved to 8.9 from 7.3 yesterday after 1 unit of PRBCs. Better than expected. Could have been lab error yesterday. Continue to monitor. // Hypertension Patient not on any antihypertensives at this time As needed clonidine = 05/03. Systolic blood pressures elevated. Will start clonidine. = Continue to monitor. = Systolic blood pressure elevated in the 180s. We will start clonidine 0.1 mg p.o. twice daily. Continue amlodipine started here as well. = Blood pressure acceptable. Continue to monitor. //Hypokalemia. = 3.5. Resolved after placement. FEN diet as per GI Electrolytes: Monitor and replete as needed Holding pharmacologic anticoagulation for possible procedure Discharge Planning Diverticulosis,anemia. Will need iron supplementation. Status post lower extremity revascularization by vascular surgery = Pending right first toe amputation by podiatry. We will need clearance by podiatry, vascular surgery. Lives at home and is independent with ADLs Rodney Hernandez MD May 10, 2018 10:37
[2018-05-10 11:37] LABS: POLYCHROMASIA 2.5 % (0.0-1.9)
[2018-05-10 11:38] LABS: OVALOCYTES 1+ (NORMAL)
[2018-05-10] MEDS ORDERED: ONDANSETRON HCL 4 MG/2 ML VIAL IV ONE (12:00)
[2018-05-10] MEDS ORDERED: DEXAMETHASONE SOD PHOS 4 MG/ML VIAL IV ONE (12:00)
[2018-05-10] MEDS ORDERED: PROPOFOL 200 MG/20 ML AMP IV ONE (12:00)
[2018-05-10] MEDS ORDERED: LACTATED RINGER'S 1000 ML INJ 1,000 ML IV ONE (12:00)
[2018-05-10] MEDS ORDERED: KETOROLAC TROMETHAMINE 30 MG/ML (IVP) VIAL IV PUSH ONE (12:00)
[2018-05-10] MEDS ORDERED: LIDOCAINE HCL 1% PF 5 ML SYRINGE OTHER ONE (12:00)
[2018-05-10] MEDS ORDERED: BUPIVACAINE HCL PF 0.25% 30 ML VIAL ONE (14:58)
[2018-05-10] MEDS ORDERED: KETAMINE HCL 50 MG/5 ML SYRINGE ONE (15:38)
[2018-05-10] MEDS ORDERED: DO NOT ADM ANY ANTICOAGULANT DRUGS PRN (16:30)
--- NOTE | 2018-05-10 16:51 | MP ---
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 PREOPERATIVE DIAGNOSIS: Right foot hallux dry gangrene. POSTOPERATIVE DIAGNOSIS: Right foot hallux dry gangrene. PROCEDURE PERFORMED: Right foot hallux amputation. PATHOLOGY SENT: Right hallux. ANESTHESIA: General. HEMOSTASIS: Anatomical dissection. ESTIMATED BLOOD LOSS: Less than 20 mL. MATERIALS USED: 3-0 Prolene. INJECTABLES: None. COMPLICATIONS: None. INDICATION FOR PROCEDURE: Mr. Carrasco is a 62-year-old male patient with a recent revascularization of the right lower extremity secondary to dry gangrene of the right hallux. Revascularization appeared to be a success, preparing the patient for a hallux amputation. He was initially against having the procedure done and declined, stating he would prefer to have it done as an outpatient, but then had a change of heart after speaking with family and chose to have it done on this admission. The consent was signed. The procedure was explained. No guarantees were given. DESCRIPTION OF PROCEDURE: Under mild sedation, the patient was brought to the operating room and placed on the operating table in a supine position. Following IV sedation, pneumatic ankle tourniquet was placed around the right leg. The foot was then scrubbed, prepped and draped in the usual aseptic manner. Attention was directed to the right hallux, which had a full-thickness dry gangrene eschar just proximal to the IPJ level on the dorsal aspect of the toe. Two linear longitudinal semi-elliptical incisions were made, one medial to the digit and one lateral to the digit, converging dorsally and plantarly. These were deepened through skin and subcutaneous tissue to the level of bone with care being taken to identify and retract any vital neurovascular structures. The digit was disarticulated at the metatarsophalangeal joint and removed from the field in toto. It was sent to pathology for further evaluation. The tendons were resected away from the incision line. Any and all bleeders were ligated and cauterized as necessary. The patient did show excellent blood flow during surgery. The area was flushed with copious amounts of sterile saline. The metatarsal head appeared healthy and viable. A 3-0 Prolene was then used to close the tissue with minimal to no tension on the suture line. Sterile dressing of Adaptic, 4 x 4's, cast padding and a light Matt bandage were applied. The patient tolerated the procedure and the anesthesia well. He will recover in the PACU for a period of time before being discharged back to his room with written and oral postoperative instructions. YUE Matt , 04:16 PM , 04:49 PM MTDKathleen
--- NOTE | 2018-05-10 18:37 | HHI.GIFU ---
GI Follow-up Note Consult Follow-up pt called and informed about pathology results-showed esophageal cancer - oncology consult placed ASSESSMENT/PLAN: It was a pleasure seeing Juan Alberto Carrasco Thank you for this consult. Entered by: Stephanie Olivas MD May 10, 2018 18:37
[2018-05-11] VITALS: PULSE 67
[2018-05-11] MEDS: PIPERACIL-TAZO 3.375 GM PREMIX 50 ML IV SCH ×3 (02:00→13:48)
[2018-05-11] MEDS: ACETAMINOPHEN/HYDROcodone 325 MG/7.5 MG TAB PO PRN ×3 (02:25→13:48)
[2018-05-11] MEDS ORDERED: PHARMACY ORDERED LAB ONE (03:45)
[2018-05-11 04:00] VITALS: BP 146/67; PULSE 70; RESP 18; TEMP 99.1; O2SAT 93
[2018-05-11] MEDS: NS + KCL 20 MEQ INJ 1,000 ML IV SCH (04:16)
[2018-05-11] MEDS: VANCOMYCIN INJ 1,250 MG in SODIUM CHLOR 0.9% 250 ML INJ 250 ML IV SCH (04:16)
[2018-05-11 08:00] VITALS: BP 162/71; PULSE 71; RESP 17; TEMP 98.4; O2SAT 90
[2018-05-11] MEDS: CLOPIDOGREL 75 MG TAB PO SCH (08:37)
[2018-05-11] MEDS: POLYETHYLENE GLYCOL 17 GM PKG PO SCH (08:37)
[2018-05-11] MEDS: PANTOPRAZOLE SODIUM 40 MG VIAL IV PUSH SCH (08:37)
[2018-05-11] MEDS: FERROUS SULFATE 325 MG (65 MG ELEMENTAL IRON) TAB PO SCH (08:38)
[2018-05-11] MEDS: ASPIRIN 81 MG CHEW TAB PO SCH (08:38)
[2018-05-11] MEDS: ATORVASTATIN 40 MG TAB PO SCH (08:38)
[2018-05-11] MEDS: cloNIDine HCL 0.1 MG TAB PO SCH (08:39)
[2018-05-11] MEDS: amLODIPine BESYLATE 5 MG TAB PO SCH (08:39)
[2018-05-11] MEDS ORDERED: CEFP200T PO (11:35)
--- NOTE | 2018-05-11 11:37 | HHI.FF ---
Face to Face Verification Diagnosis: (1) Cellulitis of toe of right foot (2) Peripheral vascular disease Physical Therapy Order: Evaluate and Treat Home Health Nursing Order: Nursing assessment with vital signs I have seen patient Juan Alberto Carrasco on 05/11/18. My clinical findings support the need for the requested home health care services because: Limited ability to care for self I certify that my clinical findings support that this patient is homebound because: Unsafe to leave home unassisted Rodney Hernandez MD May 11, 2018 11:37
[2018-05-11] MEDS ORDERED: WALKER WHEELS/F1 MIS (11:38)
[2018-05-11] MEDS ORDERED: CLON.1 PO (11:48)
[2018-05-11] MEDS ORDERED: PLAV75TA29 PO (11:48)
[2018-05-11] MEDS ORDERED: ASPI81 PO (11:48)
[2018-05-11] MEDS ORDERED: AMLO5 PO (11:48)
[2018-05-11] MEDS ORDERED: FERR325T20 PO (11:48)
[2018-05-11] MEDS ORDERED: ATOR40TA16 PO (11:48)
[2018-05-11] MEDS ORDERED: PANT40TA3 PO (11:48)
--- NOTE | 2018-05-11 11:56 | HHI.PR ---
Subjective Remarks He says he is feeling well. Does not want to go to rehab. Would like to go home. Reports pain is controlled. Denies any chest pain shortness of breath. Denies nausea or vomiting. Objective Vital Signs Date Time Temp Pulse Resp B/P (MAP) Pulse Ox O2 Delivery O2 Flow Rate FiO2 05/11/18 08:00 98.4 71 17 162/71 (101) 90 05/11/18 04:00 99.1 70 18 146/67 (93) 93 05/11/18 00:00 67 05/10/18 23:50 99.5 65 18 123/60 (81) 94 05/10/18 20:00 99.0 74 20 118/55 (76) 95 05/10/18 17:00 97.5 64 18 145/67 (93) 91 05/10/18 16:30 65 18 141/65 (90) 97 Nasal Cannula 3 05/10/18 16:14 66 18 143/64 (90) 96 Nasal Cannula 3 05/10/18 16:02 98.3 73 18 133/62 (85) 96 Nasal Cannula 3 05/10/18 12:00 98.0 69 19 154/65 (94) 91 I/O 05/10/18 05/10/18 05/10/18 05/11/18 05/11/18 05/11/18 06:59 14:59 22:59 06:59 14:59 22:59 Intake Total 525 ml 750 ml 290 ml Output Total 500 ml 600 ml 250 ml 200 ml Balance 25 ml 150 ml 40 ml -200 ml Intake Oral 125 ml 240 ml IV Total 750 ml 50 ml Packed Cells 400 ml Output Urine Total 500 ml 500 ml 250 ml 200 ml Estimated Blood Loss 100 ml # Bowel Movements 0 1 0 Result Diagram: 05/10/1852405/10/18 0525 Objective Remarks GENERAL: Awake, alert. Appears comfortable. SKIN: Warm and dry. HEAD: Normocephalic. EYES: No scleral icterus. No injection or drainage. NECK: Supple, trachea midline. No JVD. CARDIOVASCULAR: Regular rate and rhythm without murmurs, gallops, or rubs. RESPIRATORY: Breath sounds equal bilaterally. No accessory muscle use. GASTROINTESTINAL: Abdomen soft, non-tender, nondistended. MUSCULOSKELETAL: No cyanosis, or edema. Right lower extremity dressed status post first toe amputation. BACK: Nontender without obvious deformity. No CVA tenderness. A/P Assessment and Plan //Cellulitis failed outpatient treatment/peripheral vascular disease/ claudication Patient with cellulitis that is persistent despite compliance with Bactrim Vancomycin/Zosyn Podiatry consulted, appreciate assistance CTA significant for occlusion of the right external iliac artery, distal right common femoral artery and right superficial fundus artery with reconstitution of the right popliteal artery. Patient with symptoms consistent with claudication vascular surgery consulted, appreciate recommendations. = Unfortunately patient had poor prep and could not do colonoscopy. No signs of acute bleeding on EGD. Continue vancomycin, Zosyn. Podiatry following. Will need revascularization after GI workup. Appreciate vascular surgery assistance. = Patient has not had adequate GoLYTELY. Nursing to inform GI. Informed patient that he needs to have colonoscopy prior to undergoing revascularization and surgery to right foot = S post colonoscopy with diverticulosis. Further plan per vascular surgery and podiatry. = Plan for revascularization tomorrow. Appreciate vascular surgery assistance. = Status post revascularization. Follow-up podiatry recommendations. Appreciate assistance. = 05/09. Patient has agreed to amputation of gangrenous right first toe tomorrow. Appreciate podiatry assistance. = 05/10. Pending amputation by podiatry. = 05/10 status post first toe amputation. Podiatry has cleared for discharge on p.o. antibiotics. Follow-up podiatry as outpatient. Follow-up vascular surgery as outpatient. Continue Plavix and aspirin. Continue statin. 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 IV Protonix = Again recent drank inadequate prep. Discussed with patient. He will need colonoscopy prior to undergoing surgical intervention on right foot. = 05/06. Colonoscopy with diverticulosis. Will start on iron supplementation. Iron studies pending. = Continue iron supplementation. Need to follow-up with GI as outpatient. = 05/09. Hemoglobin down to 7.3 from 8.8 yesterday, likely secondary to surgical blood loss. No signs of acute bleeding. Administer 1 unit PRBCs today and follow-up tomorrow. = 05/10. Hemoglobin improved to 8.9 from 7.3 yesterday after 1 unit of PRBCs. Better than expected. Could have been lab error yesterday. Continue to monitor. = 05/11. 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 Oncology consulted. Follow-up recommendations. // Hypertension Patient not on any antihypertensives at this time As needed clonidine = 05/03. Systolic blood pressures elevated. Will start clonidine. = Continue to monitor. = Systolic blood pressure elevated in the 180s. We will start clonidine 0.1 mg p.o. twice daily. Continue amlodipine started here as well. = Blood pressure acceptable. Continue to monitor. //Hypokalemia. = 3.5. Resolved after placement. FEN diet as per GI Electrolytes: Monitor and replete as needed Holding pharmacologic anticoagulation for possible procedure Discharge Planning Diverticulosis,anemia. Will need iron supplementation. Status post lower extremity revascularization by vascular surgery. Follow-up with vascular surgery clinic on Monday for removal of VAC. New diagnosis of esophageal cancer. Follow-up with oncology next week. Lives at home and is independent with ADLs Rodney Hernandez MD May 11, 2018 11:56
[2018-05-11 12:00] VITALS: BP 178/74; PULSE 70; RESP 19; TEMP 97.8; O2SAT 90
--- NOTE | 2018-05-11 12:06 | HHI.DS ---
Discharge Summary Admission Date May 02, 2018 at 19:43 Discharge Date: May 11, 2018 Admitting Diagnosis GI bleed, cellulitis right foot (1) Squamous cell esophageal cancer ICD Code: C15.9 - Malignant neoplasm of esophagus, unspecified (2) Cellulitis of toe of right foot ICD Code: L03.031 - Cellulitis of right toe Status: Acute (3) Peripheral vascular disease ICD Code: I73.9 - Peripheral vascular disease, unspecified Status: Acute (4) GI bleed ICD Code: K92.2 - Gastrointestinal hemorrhage, unspecified Status: Acute Procedures Right femoral revascularization by vascular surgery Surgical amputation of right first toe by podiatry Brief History - From Admission 62-year-old male with a past medical history significant for hypertension presents the emergency department for the evaluation of a nonhealing right great toe cellulitis. The patient was seen on 04/14/18 where he had an I&D of the right great toe paronychia. He was then prescribed a 7 day course of Bactrim with which he was compliant. The patient reports that despite this the swelling and redness of his right foot has worsened and he is now in excruciating pain with ambulation. He denies any systemic symptoms such as fever/chills. The patient reports the wound is approximately 1-year-old and will at times be worse than other times get better. He has not yet seen a sawyer cork slabs but is working with his primary care physician to do so. Additionally, the patient reports pain in his calves with walking. On arrival to the emergency department, the patient's hemoglobin was 6.8. He was Hemoccult positive with red/brown stool. His girlfriend reports that he has been looking more pale recently and the patient endorses increased fatigue. He denies any lightheadedness or dizziness. He denies any melena or hematemesis. No chest pain or shortness of breath. No abdominal pain. No nausea/vomiting/ diarrhea. No lateralizing signs/symptoms. CBC/BMP: 05/10/18 0525 05/10/18 0525 Significant Findings Laboratory Tests Test 6/26/18 15:40 05/09/18 08:07 05/10/18 05:25 05/11/18 03:45 White Blood Count 13.1 TH/MM3 (4.0-11.0) 12.2 TH/MM3 (4.0-11.0) Hemoglobin 8.8 GM/DL (13.0-17.0) 7.3 GM/DL (13.0-17.0) 8.9 GM/DL (13.0-17.0) Hematocrit 30.6 % (39.0-51.0) 24.4 % (39.0-51.0) 29.3 % (39.0-51.0) Mean Corpuscular Volume 65.7 FL (80.0-100.0) 66.1 FL (80.0-100.0) 70.0 FL (80.0-100.0) Mean Corpuscular Hemoglobin 18.8 PG (27.0-34.0) 19.9 PG (27.0-34.0) 21.2 PG (27.0-34.0) Mean Corpuscular Hemoglobin Concent 28.6 % (32.0-36.0) 30.0 % (32.0-36.0) 30.3 % (32.0-36.0) Red Cell Distribution Width 30.8 % (11.6-17.2) 30.9 % (11.6-17.2) 32.1 % (11.6-17.2) Neutrophils (%) (Auto) 93.0 % (16.0-70.0) Lymphocytes (%) (Auto) 4.9 % (9.0-44.0) Neutrophils # (Auto) 12.2 TH/MM3 (1.8-7.7) 8.1 TH/MM3 (1.8-7.7) Lymphocytes # (Auto) 0.6 TH/MM3 (1.0-4.8) Basophilic Stippling FAINT (NORMAL) Ovalocytes 1+ (NORMAL) 1+ (NORMAL) Blood Urea Nitrogen 2 MG/DL (7-18) 4 MG/DL (7-18) 4 MG/DL (7-18) Creatinine 0.47 MG/DL (0.60-1.30) 0.57 MG/DL (0.60-1.30) Random Glucose 124 MG/DL (74-106) 109 MG/DL (74-106) Albumin 2.4 GM/DL (3.4-5.0) 2.0 GM/DL (3.4-5.0) Calcium Level 7.7 MG/DL (8.5-10.1) 7.7 MG/DL (8.5-10.1) 7.5 MG/DL (8.5-10.1) Potassium Level 3.3 MEQ/L (3.5-5.1) 3.4 MEQ/L (3.5-5.1) Red Blood Count 3.70 MIL/MM3 (4.50-5.90) 4.18 MIL/MM3 (4.50-5.90) Monocytes (%) (Auto) 14.6 % (0.0-8.0) Monocytes # (Auto) 1.8 TH/MM3 (0-0.9) Polychromasia 2.5 % (0.0-1.9) Phosphorus Level 2.1 MG/DL (2.5-4.9) Vancomycin Level Trough 23.9 MCG/ML (5.0-10.0) Imaging Last Impressions Foot X-Ray 05/03/18 0000 Signed Impressions: CONCLUSION: No definite findings to indicate osteomyelitis identified. Postsurgical changes and soft tissue swelling. Advanced osteopenia. Chest X-Ray 05/02/18 1536 Signed Impressions: CONCLUSION: No acute cardiopulmonary process. Extremity Arterial Study 05/02/18 0000 Signed Impressions: CONCLUSION: 1. Findings consistent with severe right lower extremity peripheral arterial d isease. 2. Findings consistent with moderate left lower extremity peripheral arterial disease. Aorta w/Runoff CTA 05/02/18 0000 Signed Impressions: CONCLUSION: 1. Occlusion of the right external iliac artery, distal right common femoral a rtery and right superficial fundus artery with reconstitution of the right popl iteal artery.. 2. Extensive atherosclerotic changes/peripheral vascular disease. Hospital Course //Cellulitis failed outpatient treatment/peripheral vascular disease/ claudication Patient with cellulitis that is persistent despite compliance with Bactrim Vancomycin/Zosyn Podiatry consulted, appreciate assistance CTA significant for occlusion of the right external iliac artery, distal right common femoral artery and right superficial fundus artery with reconstitution of the right popliteal artery. Patient with symptoms consistent with claudication vascular surgery consulted, appreciate recommendations. = Unfortunately patient had poor prep and could not do colonoscopy. No signs of acute bleeding on EGD. Continue vancomycin, Zosyn. Podiatry following. Will need revascularization after GI workup. Appreciate vascular surgery assistance. = Patient has not had adequate GoLYTELY. Nursing to inform GI. Informed patient that he needs to have colonoscopy prior to undergoing revascularization and surgery to right foot = S post colonoscopy with diverticulosis. Further plan per vascular surgery and podiatry. = Plan for revascularization tomorrow. Appreciate vascular surgery assistance. = Status post revascularization. Follow-up podiatry recommendations. Appreciate assistance. = 05/09. Patient has agreed to amputation of gangrenous right first toe tomorrow. Appreciate podiatry assistance. = 05/10. Pending amputation by podiatry. = 05/10 status post first toe amputation. Podiatry has cleared for discharge on p.o. antibiotics. Follow-up podiatry as outpatient. Follow-up vascular surgery as outpatient. Continue Plavix and aspirin. Continue statin. 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 IV Protonix = Again recent drank inadequate prep. Discussed with patient. He will need colonoscopy prior to undergoing surgical intervention on right foot. = 05/06. Colonoscopy with diverticulosis. Will start on iron supplementation. Iron studies pending. = Continue iron supplementation. Need to follow-up with GI as outpatient. = 05/09. Hemoglobin down to 7.3 from 8.8 yesterday, likely secondary to surgical blood loss. No signs of acute bleeding. Administer 1 unit PRBCs today and follow-up tomorrow. = 05/10. Hemoglobin improved to 8.9 from 7.3 yesterday after 1 unit of PRBCs. Better than expected. Could have been lab error yesterday. Continue to monitor. = 05/11. 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 Oncology consulted. Follow-up recommendations. // Hypertension Patient not on any antihypertensives at this time As needed clonidine = 05/03. Systolic blood pressures elevated. Will start clonidine. = Continue to monitor. = Systolic blood pressure elevated in the 180s. We will start clonidine 0.1 mg p.o. twice daily. Continue amlodipine started here as well. = Blood pressure acceptable. Continue to monitor. //Hypokalemia. = 3.5. Resolved after placement. FEN diet as per GI Electrolytes: Monitor and replete as needed Holding pharmacologic anticoagulation for possible procedure Discharge Planning Diverticulosis,anemia. Will need iron supplementation. Status post lower extremity revascularization by vascular surgery. Follow-up with vascular surgery clinic on Monday for removal of VAC. New diagnosis of esophageal cancer. Follow-up with oncology next week. Lives at home and is independent with ADLs Pt Condition on Discharge: Good Discharge Disposition: Disch w/ Home Health Serv Discharge Time: > 30 minutes Discharge Instructions DIET: Follow Instructions for: Heart Healthy Diet Activities you can perform: Partial Weight Bearing Other Activity Instructions: Postoperative activity instructions as per podiatry. Follow up Referrals: Gastroenterology - 3-5 Days with Stephanie Wang MD Oncology - 3-5 Days with Kade Beyer MD PCP Follow-up - 1 Week Podiatry - 1 Week with Fabrice Sommers DPM Vascular Surgery - 3 Weeks @ Vascular Surgery with Glenroy Ly MD Vascular Surgery - 2-3 Days with Glenroy Ly MD New Medications: Cefpodoxime (Cefpodoxime) 200 Mg Tab 400 MG PO Q12H for Infection for 10 Days, #40 TAB 0 Refills Pantoprazole (Pantoprazole) 40 Mg Tab 40 MG PO DAILY for Reflux, #30 TAB 0 Refills Walker with Front Wheels (Walker with Front Wheels) 1 Mis Mis EA .XX DIRECTED, #1 0 Refills Amlodipine (Norvasc) 5 Mg Tab 5 MG PO DAILY for Blood Pressure Management for 30 Days, #30 TAB Aspirin (Tgt Aspirin) 81 Mg Chw 81 MG PO DAILY for Blood Clot Prevention for 30 Days, EA Atorvastatin (Atorvastatin) 40 Mg Tab 40 MG PO DAILY for Cholesterol Management for 30 Days, #30 TAB Clonidine (Catapres) 0.1 Mg Tab 0.1 MG PO Q12HR for Blood Pressure Management for 30 Days, TAB Clopidogrel (Plavix) 75 Mg Tab 75 MG PO DAILY for Blood Clot Prevention for 30 Days, #30 TAB Ferrous Sulfate (Ferosul) 325 Mg (65 Mg Iron) Tablet 325 MG PO BID for anemia for 30 Days, TAB Rodney Hernandez MD May 11, 2018 12:06
--- NOTE | 2018-05-11 12:09 | HHI.FF ---
Face to Face Verification Diagnosis: (1) Cellulitis of toe of right foot (2) Squamous cell esophageal cancer (3) Peripheral vascular disease (4) GI bleed Home Health Nursing Order: Nursing assessment with vital signs Instructions: Home health nurse for medication management. Hypoid Gear Tester Order: To Evaluate: Support services I have seen patient Juan Alberto Carrasco on 05/11/18. My clinical findings support the need for the requested home health care services because: Limited ability to care for self I certify that my clinical findings support that this patient is homebound because: Unsafe to leave home unassisted Rodney Hernandez MD May 11, 2018 12:09
[2018-05-11] MEDS: SODIUM CHLORIDE 0.9% FLUSH 10 ML FLUSH IV FLUSH SCH (13:48)
[2018-05-11 16:00] VITALS: BP 146/63; PULSE 61; RESP 20; TEMP 97.6; O2SAT 90
--- NOTE | 2018-05-11 16:16 | PD.POD ---
Subjective Podiatric Problems s/p right foot hallux amputation, 05/10/18. He denies any pain in the foot currently. He denies any n/v/f/h/c/sob. Pain score: 6 Past Med/Surg/Social History Social History Smoking Status: Current Every Day Smoker Objective Vital Signs Vital Signs Date Time Temp Pulse Resp B/P (MAP) Pulse Ox O2 Delivery O2 Flow Rate FiO2 05/11/18 12:00 97.8 70 19 178/74 (108) 90 05/11/18 08:00 98.4 71 17 162/71 (101) 90 05/11/18 04:00 99.1 70 18 146/67 (93) 93 05/11/18 00:00 67 05/10/18 23:50 99.5 65 18 123/60 (81) 94 05/10/18 20:00 99.0 74 20 118/55 (76) 95 05/10/18 17:00 97.5 64 18 145/67 (93) 91 05/10/18 16:30 65 18 141/65 (90) 97 Nasal Cannula 3 Coded Allergies: No Known Allergies (Unverified , 05/02/18) Physical Exam Remarks Right hallux amputation incision site is well coapted with all sutures intact. No erythema. No drainage. Mild edema. Assessment & Plan A/P 1) right hallux amputation 05/10/18 -WBAT in surgical shoe -no HHC needed, dressing to be changed in office by -recommended 10-14 days po abx at d/c -ok to d/c from podiatry standpoint Jenni Fontanez DPM May 11, 2018 16:16
[2018-05-11 17:41] LABS: HEMOGLOBIN A1C 4.9 % (4.3-6.0)
== END 2018-05-11 17:44 | disposition home health service (06) | DRG 271 ==
LOC: NEPD 15:07 → NEDA 19:43 → NEPFCDU 21:28 → N07A 05-05 15:41
PROVIDERS: ADMIT Hospitalist; ATTEND Hospitalist
PROC: 30233N1 Transfusion of Nonautologous Red Blood Cells into Peripheral Vein, Percutaneous Approach (ICD-10-PCS; 2018-05-02)
PROC: 0DB98ZX Excision of Duodenum, Via Natural or Artificial Opening Endoscopic, Diagnostic (ICD-10-PCS; 2018-05-04)
PROC: 0DB68ZX Excision of Stomach, Via Natural or Artificial Opening Endoscopic, Diagnostic (ICD-10-PCS; 2018-05-04)
PROC: 0DB58ZX Excision of Esophagus, Via Natural or Artificial Opening Endoscopic, Diagnostic (ICD-10-PCS; 2018-05-04)
PROC: 0DJD8ZZ Inspection of Lower Intestinal Tract, Via Natural or Artificial Opening Endoscopic (ICD-10-PCS; 2018-05-06)
PROC: 047J3ZZ Dilation of Left External Iliac Artery, Percutaneous Approach (ICD-10-PCS; 2018-05-08)
PROC: 04CK0ZZ Extirpation of Matter from Right Femoral Artery, Open Approach (ICD-10-PCS; 2018-05-08)
PROC: 041H0JH Bypass Right External Iliac Artery to Right Femoral Artery with Synthetic Substitute, Open Approach (ICD-10-PCS; 2018-05-08)
PROC: 041K0KL Bypass Right Femoral Artery to Popliteal Artery with Nonautologous Tissue Substitute, Open Approach (ICD-10-PCS; 2018-05-08)
PROC: B41D1ZZ Fluoroscopy of Aorta and Bilateral Lower Extremity Arteries using Low Osmolar Contrast (ICD-10-PCS; 2018-05-08)
PROC: 04CH0ZZ Extirpation of Matter from Right External Iliac Artery, Open Approach (ICD-10-PCS; principal; 2018-05-08 09:57)
PROC: 047H3EZ Dilation of Right External Iliac Artery with Two Intraluminal Devices, Percutaneous Approach (ICD-10-PCS; 2018-05-08 09:57)
PROC: 0Y6P0Z0 Detachment at Right 1st Toe, Complete, Open Approach (ICD-10-PCS; 2018-05-10)
DX: I70.261 Atherosclerosis of native arteries of extremities with gangrene, right leg (principal); K92.2 Gastrointestinal hemorrhage, unspecified; C15.4 Malignant neoplasm of middle third of esophagus; I10 Essential (primary) hypertension; D50.9 Iron deficiency anemia, unspecified; E87.6 Hypokalemia; F17.210 Nicotine dependence, cigarettes, uncomplicated; G89.29 Other chronic pain; L03.031 Cellulitis of right toe; K57.30 Diverticulosis of large intestine without perforation or abscess without bleeding; K64.4 Residual hemorrhoidal skin tags; K64.8 Other hemorrhoids; K44.9 Diaphragmatic hernia without obstruction or gangrene; H91.90 Unspecified hearing loss, unspecified ear
CPT/HCPCS: 36430; 71045; 73630; 75630; 75635; 76937; 80048; 80053; 80069; 80202; 82728; 83036; 83540; 83550; 83605; 83735; 85018; 85025; 85027; 85610; 85652; 85730; 86403; 86850; 86900; 86901; 86920; 87070; 87077; 87147; 87186; 87205; 88305; 88307; 88311; 88312; 93005; 93922; 96374; C1725; C1768; C1769; C1876; C9113; J0690; J1100; J1644; J1756; J1885; J2175; J2250; J2270; J2405; J2543; J2720; J3010; J3370; J3480; J7030; J7040; J7050; J7120; L3260; P9016; Q9967

== ENCOUNTER 2018-06-06 10:50 | Inpatient (IN) ==
--- NOTE | 2018-06-06 14:00 | ED ---
HPI General Chief complaint: Nausea/Vomiting/Diarrhea Stated complaint: Vomitting Time Seen by Provider: 06/06/18 13:31 History of Present Illness HPI narrative: Patient presents to the emergency department complaining of vomiting. States that he woke up this morning vomiting and weak. He does have a history of throat cancer which has not been treated. Also reported having some left-sided chest pain, intermittent, no pain now, 30 minutes ago it started , lasted for approximately 1 minute, nonradiating, no alleviating or aggravating factors. He denies abdominal pain or diarrhea or fever or dyspnea but reports a constant headache. States that he has had a history of blood transfusions. Patient has h/o ulcer and diverticulosis based on EGD/ colonoscopy. Related Data Home Medications Medication Instructions Recorded Confirmed aspirin 81 mg PO DAILY 06/06/18 06/06/18 atorvastatin 40 mg PO DAILY 06/06/18 06/06/18 clonidine HCl 0.1 mg PO BID 06/06/18 06/06/18 clopidogrel 75 mg PO DAILY 06/06/18 06/06/18 ferrous sulfate [iron] 325 mg PO DAILY 06/06/18 06/06/18 lisinopril 20 mg PO DAILY 06/06/18 06/06/18 pantoprazole 20 mg PO DAILY 06/06/18 06/06/18 Allergies Allergy/AdvReac Type Severity Reaction Status Date / Time No Known Allergies Allergy Unverified 05/02/18 15:29 Review of Systems ROS Unobtainable All other systems reviewed negative except as stated in HPI [facility] Medical History Medical History Amputated great toe of right foot (Acute) Anemia (Acute) Bypass graft stenosis (Acute) GERD (gastroesophageal reflux disease) (Acute) HTN (hypertension) (Acute) High cholesterol (Acute) Throat cancer (Acute) Surgical History Surgical History S/P surgical manipulation of ankle joint (Acute) Social History Social History Substance History: No History of Abuse Second Hand Smoke Exposure: Yes Smoking Status: Current every day smoker Tobacco Type: Cigarettes How Often Do You Have a Drink Containing Alcohol: 4 or more times a week Recent Travel in [facility] within the Last 8 Weeks: No Recent Out of Country Travel within the Last 8 Weeks: No Immunization History Tetanus Immunization: Unsure Hx Influenza Vaccine This Season: No Exam Narrative Exam Narrative: GENERAL: No acute distress. SKIN: Focused skin assessment warm/dry. Pale. HEAD: Atraumatic. Normocephalic. EYES: Pupils equal and round. No scleral icterus. No injection or drainage. ENT: No nasal bleeding or discharge. Mucous membranes pink and moist. NECK: Trachea midline. No JVD. CARDIOVASCULAR: Regular rate and rhythm. No murmur appreciated. RESPIRATORY: No accessory muscle use. Clear to auscultation. Breath sounds equal bilaterally. GASTROINTESTINAL: Abdomen soft, non-tender, nondistended. Rectal: black stool, guaiac + MUSCULOSKELETAL: No obvious deformities. No clubbing. No cyanosis. No edema. NEUROLOGICAL: Awake and alert. No obvious cranial nerve deficits. Motor grossly within normal limits. Normal speech. PSYCHIATRIC: Appropriate mood and affect; insight and judgment normal. Course Initial Documented Vital Signs Temperature 97.7 F 06/06/18 11:12 Pulse Rate 79 06/06/18 11:12 Respiratory Rate 16 06/06/18 11:12 Blood Pressure 174/73 H 06/06/18 11:12 Pulse Oximetry 99 06/06/18 11:12 Last Documented Vital Signs Temperature 97.7 F 06/06/18 11:12 Pulse Rate 73 06/06/18 15:15 Respiratory Rate 16 06/06/18 15:15 Blood Pressure 156/62 H 06/06/18 15:15 Pulse Oximetry 98 06/06/18 15:15 Critical Care Time Critical Care Time: Yes Total Critical Care Time: 35 Attestation: Aggregate critical care time was 35 minutes. Time to perform other separately billable procedures was not included in the critical care time. My time did not include minutes spent treating any other patients simultaneously or on activities that did not directly contribute to the patient's treatment. The services I provided to this patient were to treat and/or prevent clinically significant deterioration that could result in: cardiac ischemia, syncope, worsening anemia, respiratory distress I provided critical care services requiring my management, as noted below: Chart data review, documentation time, medication orders and management, vital sign assessments/reviewing monitor data, ordering and reviewing lab tests, ordering and interpreting/reviewing x-rays and diagnostic studies, care of the patient and discussion of the patient with the admitting physicians. Medical Decision Making MDM Narrative Medical decision making narrative: Patient presents to the emergency department complaining of vomiting and weakness. 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 Chest x-ray, EKG, head CT, Zofran 4 mg ODT, and labs ordered. Chest x-ray negative. Elevated platelets and decreased hemoglobin, hematocrit. Patient consented for blood transfusion. Will transfuse 1 unit PRBCs in ER. Slightly increased sodium and glucose. Head CT-> 1. No evidence of midline shift, mass lesion, hemorrhage or acute infarction. No extraaxial fluid collections are seen. 2. Mild periventricular and subcortical white matter small vessel ischemic changes are noted bilaterally. 3. Old lacunar infarct is noted within the region of the anterior limb of right internal capsule. Differential Diagnosis Differential Diagnosis: Metastatic cancer, ACS, GI bleed, anemia, Lab Data Result diagrams: 06/06/18 14:00 06/06/18 14:00 Lab Results 06/06/18 06/06/18 06/06/18 Range/Units 14:00 14:00 14:00 WBC 6.6 (4.0-11.0) th/mm3 RBC 2.39 L (4.50-5.90) mil/mm3 Hgb 6.1 L* (13.0-17.0) gm/dL Hct 19.8 L* (39.0-51.0) % MCV 83.0 (80.0-100.0) fL MCH 25.5 L (27.0-34.0) pg MCHC 30.7 L (32.0-36.0) % RDW 30.0 H (11.6-17.2) % Plt Count 491 H (150-450) th/mm3 MPV 7.8 (7.0-11.0) fL Prelim Diff (Auto) Slide review pending Neut % (Auto) 76.1 H (16.0-70.0) % Lymph % (Auto) 16.2 (9.0-44.0) % [place] % (Auto) 6.9 (0.0-8.0) % Eos % (Auto) 0.2 (0.0-4.0) % Baso % (Auto) 0.6 (0.0-2.0) % Neut # (Auto) 5.0 (1.8-7.7) th/mm3 Lymph # (Auto) 1.1 (1.0-4.8) th/mm3 [place] # (Auto) 0.5 (0.0-0.9) th/mm3 Eos # (Auto) 0.0 (0.0-0.4) th/mm3 Baso # (Auto) 0.0 (0.0-0.2) th/mm3 WBC Differential . Diff Scan Auto diff confirmed Differential Comment . Platelet Estimate Normal (Normal) Platelet Morphology Normal (Normal) Dimorphic RBCs Present H (None) Target Cells 1+ H (None) Ovalocytes 1+ H (None) Keratocytes Occ H (None) PT 10.0 (9.8-11.6) sec INR 1.0 Ratio APTT 20.1 L (24.3-30.1) sec Sodium 147 H (136-145) meq/L Potassium 3.6 (3.5-5.1) meq/L Chloride 110 H (98-107) meq/L Carbon Dioxide 24.2 (21.0-32.0) meq/L Anion Gap 13 (5-15) meq/L BUN 11 (7-18) mg/dL Creatinine 1.00 (0.60-1.30) mg/dL Estimated GFR 75 L (>89) mL/min Random Glucose 126 H (74-106) mg/dL Lactic Acid (0.4-2.0) mmol/L Calcium 8.3 L (8.5-10.1) mg/dL Magnesium 1.8 (1.5-2.5) mg/dL Total Bilirubin 0.3 (0.2-1.0) mg/dL AST 25 (15-37) U/L ALT 15 (12-78) U/L Alkaline Phosphatase 110 (45-117) U/L Total Creatine Kinase 29 L (39-308) U/L Troponin I Less than 0.02 L (0.02-0.05) ng/mL Total Protein 6.5 (6.4-8.2) g/dL Albumin 2.6 L (3.4-5.0) g/dL Blood Type MTS Gel Crossmatch 06/06/18 06/06/18 06/06/18 Range/Units 14:00 14:15 15:15 WBC (4.0-11.0) th/mm3 RBC (4.50-5.90) mil/mm3 Hgb (13.0-17.0) gm/dL Hct (39.0-51.0) % MCV (80.0-100.0) fL MCH (27.0-34.0) pg MCHC (32.0-36.0) % RDW (11.6-17.2) % Plt Count (150-450) th/mm3 MPV (7.0-11.0) fL Prelim Diff (Auto) Neut % (Auto) (16.0-70.0) % Lymph % (Auto) (9.0-44.0) % [place] % (Auto) (0.0-8.0) % Eos % (Auto) (0.0-4.0) % Baso % (Auto) (0.0-2.0) % Neut # (Auto) (1.8-7.7) th/mm3 Lymph # (Auto) (1.0-4.8) th/mm3 [place] # (Auto) (0.0-0.9) th/mm3 Eos # (Auto) (0.0-0.4) th/mm3 Baso # (Auto) (0.0-0.2) th/mm3 WBC Differential Diff Scan Differential Comment Platelet Estimate (Normal) Platelet Morphology (Normal) Dimorphic RBCs (None) Target Cells (None) Ovalocytes (None) Keratocytes (None) PT (9.8-11.6) sec INR Ratio APTT (24.3-30.1) sec Sodium (136-145) meq/L Potassium (3.5-5.1) meq/L Chloride (98-107) meq/L Carbon Dioxide (21.0-32.0) meq/L Anion Gap (5-15) meq/L BUN (7-18) mg/dL Creatinine (0.60-1.30) mg/dL Estimated GFR (>89) mL/min Random Glucose (74-106) mg/dL Lactic Acid 1.9 (0.4-2.0) mmol/L Calcium (8.5-10.1) mg/dL Magnesium (1.5-2.5) mg/dL Total Bilirubin (0.2-1.0) mg/dL AST (15-37) U/L ALT (12-78) U/L Alkaline Phosphatase (45-117) U/L Total Creatine Kinase (39-308) U/L Troponin I (0.02-0.05) ng/mL Total Protein (6.4-8.2) g/dL Albumin (3.4-5.0) g/dL Blood Type A Positive MTS Gel Crossmatch See Detail Imaging Data Radiologist's impression: Chest X-Ray 06/06/18 13:47 CONCLUSION: Negative examination. Head CT 06/06/18 14:12 CONCLUSION: ECG Data Attestation: I personally reviewed and interpreted this ECG as follows: (Sinus rhythm, rate 80, normal axis, T-wave inversion in aVL and V1, normal intervals, QTC 404) Discharge Plan Discharge Disposition Patient Disposition: 30 Still Patient Discharge Condition Condition: Stable Discharge Details Diagnosis: GI (gastrointestinal bleed), Chest pain, Anemia, Esophageal cancer Physicians Team ED Provider: Malu Morin Primary Care Provider: NON STAFF,PROVIDER Rxs /Orders / Referrals /Forms Prescriptions: No Action atorvastatin 40 mg Tablet 40 mg PO DAILY RF: 0 clonidine HCl 0.1 mg Tablet 0.1 mg PO BID RF: 0 lisinopril 20 mg Tablet 20 mg PO DAILY RF: 0 clopidogrel 75 mg Tablet 75 mg PO DAILY RF: 0 pantoprazole 20 mg Tablet,Delayed Release (Dr/Ec) 20 mg PO DAILY RF: 0 ferrous sulfate [iron] 325 mg (65 mg iron) Tablet 325 mg PO DAILY RF: 0 aspirin 81 mg Tablet,Chewable 81 mg PO DAILY RF: 0 Discharge Interventions Interventions: Vital Signs Last Done: 06/06/18 15:15 Status ED Status: With Doctor
--- NOTE | 2018-06-06 14:05 | XR ---
EXAM DATE: 06/06/2018 2:01 PM EDT AGE/SEX: 63 years / Male INDICATIONS: Cough, shortness of breath and chest pain. CLINICAL DATA: This is the patient's initial encounter. Patient reports that signs and symptoms have been present for 1 month and indicates a pain score of 5/10. MEDICAL/SURGICAL HISTORY: None. None. COMPARISON: [facility] [place], CHEST SINGLE AP, 05/02/2018. . FINDINGS: A single AP view of the chest demonstrates the lungs to be symmetrically aerated without evidence of mass, infiltrate or effusion. The cardiomediastinal contours are unremarkable. Osseous structures a re intact. CONCLUSION: Negative examination. Electronically signed by: Glenroy Capps MD 06/06/2018 2:04 PM EDT
[2018-06-06] MEDS ORDERED: Pantoprazole Inj 40 MG Vial IV.PUSH ONE (14:11)
[2018-06-06 14:44] LABS: Baso % (Auto) 0.6 % (0.0-2.0); Eos % (Auto) 0.2 % (0.0-4.0); Lymph # (Auto) 1.1 th/mm3 (1.0-4.8); Lymph % (Auto) 16.2 % (9.0-44.0); Mean Corpuscular Hemoglobin 25.5 pg (27.0-34.0); Mean Platelet Volume 7.8 fL (7.0-11.0); Mono # (Auto) 0.5 th/mm3 (0.0-0.9); Mono % (Auto) 6.9 % (0.0-8.0); Neut % (Auto) 76.1 % (16.0-70.0); Platelet Count 491 th/mm3 (150-450); Red Blood Count 2.39 mil/mm3 (4.50-5.90); White Blood Count 6.6 th/mm3 (4.0-11.0)
[2018-06-06 14:59] LABS: Activated Partial Thrombo Time 20.1 sec (24.3-30.1); Mean Corpuscular HGB Conc 30.7 % (32.0-36.0)
[2018-06-06 15:02] LABS: Hematocrit 19.8 % (39.0-51.0); Hemoglobin 6.1 gm/dL (13.0-17.0)
[2018-06-06 15:57] LABS: Anion Gap 13 meq/L (5-15); Carbon Dioxide 24.2 meq/L (21.0-32.0); Chloride 110 meq/L (98-107); Potassium 3.6 meq/L (3.5-5.1); Sodium 147 meq/L (136-145)
[2018-06-06 15:58] LABS: Alanine Aminotransferase 15 U/L (12-78); Albumin 2.6 g/dL (3.4-5.0); Alkaline Phosphatase 110 U/L (45-117); Aspartate Aminotransferase 25 U/L (15-37); Blood Urea Nitrogen 11 mg/dL (7-18); Calcium 8.3 mg/dL (8.5-10.1); Creatine Kinase 29 U/L (39-308); Glomerular Filtration Rate 75 mL/min (>89); Glucose,Random 126 mg/dL (74-106); Magnesium 1.8 mg/dL (1.5-2.5); Total Protein 6.5 g/dL (6.4-8.2)
[2018-06-06 16:03] LABS: Dimorphic RBC Present
[2018-06-06 16:04] LABS: Ovalocytes 1+; Target Cells 1+
--- NOTE | 2018-06-06 16:04 | CT ---
EXAM DATE: 06/06/2018 3:54 PM EDT AGE/SEX: 63 years / Male INDICATIONS: Vomiting and weakness. CLINICAL DATA: This is the patient's initial encounter. Patient reports that signs and symptoms have been present for 2 days and indicates a pain score of 0/10. MEDICAL/SURGICAL HISTORY: Hypertension. Carcinoma throat . None. RADIATION DOSE: 37.17 CTDI (mGy) COMPARISON: No prior exams available for comparison. No external comparison. TECHNIQUE: CT of the head without contrast. Using automated exposure control and adjustment of the mA and/or kV according to patient size, radiation dose was kept as low as reasonably achievable to ob tain optimal diagnostic quality images. DICOM format image data is available electronically for revi ew and comparison. FINDINGS: Cerebrum: The ventricles are normal for age. No evidence of midline shift, mass lesion, hemorrhage or acute infarction. No extraaxial fluid collections are seen. Mild periventricular and subcortical white matter small vessel ischemic changes are noted bilaterally. Old lacunar infarct is noted within the region of the anterior limb of right internal capsule. Posterior Fossa: The cerebellum and brainstem are intact. The 4th ventricle is midline. The cerebe llopontine angle is unremarkable. Extracranial: The visualized portion of the orbits is intact. Skull: The calvaria is intact. No evidence of skull fracture. 1. No evidence of midline shift, mass lesion, hemorrhage or acute infarction. No extraaxial fluid c ollections are seen. 2. Mild periventricular and subcortical white matter small vessel ischemic changes are noted bilater ally. 3. Old lacunar infarct is noted within the region of the anterior limb of right internal capsule. . Electronically signed by: Glenroy Capps MD 06/06/2018 4:03 PM EDT
[2018-06-06 16:05] LABS: Platelet Estimate Normal (Normal); Platelet Morphology Normal (Normal)
[2018-06-06] MEDS ORDERED: Pantoprazole Inj 80 MG in Sodium Chlor 0.9% Inj 35 ML IV.SIG ONE (17:21)
--- NOTE | 2018-06-06 17:23 | P.CONGI ---
History of Present Illness Consult date: 06/06/18 Consult reason: Upper GIB Chief complaint: esophageal cancer, GI Bleed, anemia, chest pain History of Present Illness: This is a 63 yo M who has been recently diagnosed with esophageal cancer, followed by Dr. Marie, has not yet been started on treatment. Per family member at bedside pt was to have PET scan on the as well as endoscopic ultrasound done by Dr. Moncada at [facility] tomorrow. Pt presented to the ER today with complaints of feeling very cold, weakness, and vomiting that began yesterday. Pt denies hematemesis and coffee ground emesis. Pt has not noticed any black, tarry stools or BRB in his stools but according to RN when pt got here she had to clean black, tarry stools off of him. Of note, pt is on iron supplements. Pt denies any abdominal pain, dysphagia, odynophagia. Pt has not had anything to eat or drink since yesterday. Of note, pt with significant PAD , recent iliac stent placement, pt is on Plavix and ASA. Last EGD and colonoscopy in April --> Diverticulosis in the sigmoid and descending colon, internal and external hemorrhoids, and in the mid esophagus biopsy was taken that was consistent with invasive poorly differentiated squamous cell carcinoma. <Laura Barajas - Last Filed: 06/06/18 17:06> Review of Systems Constitutional: Reports weakness Gastrointestinal: Reports nausea, Reports vomiting, Denies abdominal pain, Denies change in stools Comments: Pt denies black, tarry stools however nurse reports noticing them <Laura Barajas - Last Filed: 06/06/18 17:06> COUNTS INCLUDE 234 BEDS AT THE [facility] - History History Provided By: Friend - Medical History Medical History: Medical History (Last Updated 06/06/18 @ 13:49 by Stefanie Chappell) Amputated great toe of right foot Anemia Bypass graft stenosis GERD (gastroesophageal reflux disease) HTN (hypertension) High cholesterol Throat cancer - Surgical History Surgical History: Surgical History (Last Updated 06/06/18 @ 13:49 by Stefanie Chappell) S/P surgical manipulation of ankle joint - Tobacco History Second Hand Smoke Exposure: Yes Tobacco Use In Past 30 Days: Yes Smoking Status: Current every day smoker Tobacco Type: Cigarettes - Alcohol History How Often Do You Have a Drink Containing Alcohol: 4 or more times a week - Substance Use History Substance History: No History of Abuse - Travel History Recent Travel in the [place] Within the Last 8 Weeks: No Recent Travel Out of the Country Within the Last 8 Weeks: No - Immunization History Tetanus Immunization: Unsure Hx Influenza Vaccine This Season: No <Laura Barajas - Last Filed: 06/06/18 17:06> - Medical History Medical History: Medical History (Last Updated 06/06/18 @ 13:49 by Stefanie Chappell) Amputated great toe of right foot Anemia Bypass graft stenosis GERD (gastroesophageal reflux disease) HTN (hypertension) High cholesterol Throat cancer - Surgical History Surgical History: Surgical History (Last Updated 06/06/18 @ 13:49 by Stefanie Chappell) S/P surgical manipulation of ankle joint <Ildefonso Mckeon - Last Filed: 06/07/18 18:26> Medications and Allergies <Laura Barajas - Last Filed: 06/06/18 17:06> Active Medications: Active Medications Atorvastatin Calcium (Lipitor) 40 mg PO DAILY [facility] Chlorhexidine Gluconate (Chlorhexidine 2% Cloth) 3 pack [employer]MENT [employer] 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 [facility] Stop: 06/10/18 03:00 Clonidine HCl (Catapres) 0.1 mg PO BID [facility] Lactated Ringer's (Lr 1000 Ml Inj) 1,000 mls @ 30 mls/hr IV.SIG .Q24H [facility]ONY Stop: 06/10/18 03:00 Last Infusion: 06/07/18 11:26 Dose: 30 mls/hr Sodium Chloride (Ns Inj) 500 mls @ 30 mls/hr IV.SIG .Q10H [facility] Stop: 06/10/18 03:00 Pantoprazole Sodium (Protonix) 20 mg PO DAILY [facility] Povidone Iodine (Betadine 5% Antisepsis Kit) 1 applicatio EACH [employer] 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 [facility] Stop: 06/10/18 03:00 <Ildefonso Mckeon - Last Filed: 06/07/18 18:26> Allergies Allergy/AdvReac Type Severity Reaction Status Date / Time No Known Allergies Allergy Unverified 05/02/18 15:29 Home Medications Medication Instructions Recorded Confirmed Type aspirin 81 mg PO DAILY 06/06/18 06/06/18 History atorvastatin 40 mg PO DAILY 06/06/18 06/06/18 History clonidine HCl 0.1 mg PO BID 06/06/18 06/06/18 History clopidogrel 75 mg PO DAILY 06/06/18 06/06/18 History ferrous sulfate [iron] 325 mg PO DAILY 06/06/18 06/06/18 History lisinopril 20 mg PO DAILY 06/06/18 06/06/18 History pantoprazole 20 mg PO DAILY 06/06/18 06/06/18 History Exam Vital signs: Vital Signs 06/06/18 11:12 06/06/18 14:29 06/06/18 15:15 Temperature 97.7 F Pulse Rate 79 73 73 Respiratory Rate 16 19 16 Blood Pressure 174/73 H 177/73 H 156/62 H Pulse Oximetry 99 98 98 06/06/18 16:56 Temperature 97.9 F Pulse Rate 76 Respiratory Rate 23 Blood Pressure 158/65 H Pulse Oximetry 97 Intake & Output 06/05/18 06/06/18 06/06/18 18:59 06:59 18:59 Intake Total 0 / 0 Balance 0 / 0 Weight 72.575 kg Intake: Intake (Blood Product) Amt 0 / 0 Rbc As-3 Leukoreduced Unit 0 / 0 [id number] - Constitutional no acute distress - Routine HEENT Exam Head: Present: normocephalic, atraumatic - Routine Respiratory Exam Absent: accessory muscle use - Routine Abdominal Exam Present: soft, normoactive bowel sounds. Absent: tenderness - Routine Skin Exam Present: pallor - Routine Neurological Exam Present: alert, oriented X3 <Laura Barajas - Last Filed: 06/06/18 17:06> Vital signs: Vital Signs 06/06/18 18:55 06/06/18 19:23 06/06/18 20:19 Temperature 98.2 F Pulse Rate 87 69 Respiratory Rate 18 18 18 Blood Pressure 149/68 H 112/54 L Pulse Oximetry 99 100 06/07/18 00:03 06/07/18 00:26 06/07/18 00:49 Temperature 98.7 F 97.8 F Pulse Rate 67 53 L 66 Respiratory Rate 18 18 16 Blood Pressure 155/66 H 163/70 H 163/67 H Pulse Oximetry 99 100 98 06/07/18 04:00 06/07/18 08:00 06/07/18 11:36 Temperature 97.9 F 98.1 F 98.0 F Pulse Rate 66 77 85 Respiratory Rate 16 16 18 Blood Pressure 140/65 164/72 H 140/63 Pulse Oximetry 94 L 92 L 95 06/07/18 12:00 06/07/18 14:51 06/07/18 16:00 Temperature 97.9 F 98.8 F Pulse Rate 62 90 Respiratory Rate 16 16 Blood Pressure 176/75 H 168/74 H 160/57 H Pulse Oximetry 98 96 06/07/18 17:42 Temperature 98.2 F Pulse Rate 60 Respiratory Rate 18 Blood Pressure 172/72 H Pulse Oximetry 99 Intake & Output 06/06/18 06/07/18 06/07/18 18:59 06:59 18:59 Intake Total 0 / 0 1235 / 1235 600 / 600 Balance 0 / 0 1235 / 1235 600 / 600 Weight 72.575 kg Intake: IV 35 / 35 600 / 600 LR 1000 mL Inj 1,000 ML @ 30 600 / 600 mls/hr IV.SIG .Q24H YONY Rx#: [id number] Protonix Inj 80 MG In NS Inj 35 35 / 35 ML @ 420 mls/hr IV.SIG BOLUS ONE Rx#:[id number] Intake (Blood Product) Amt 0 / 0 1200 / 1200 Rbc As-3 Leukoreduced Unit 400 / 400 [id number] Rbc As-3 Leukoreduced Unit 400 / 400 [id number] Rbc As-3 Leukoreduced Unit 0 / 0 400 / 400 [id number] Other: Date of Last Bowel Movement 06/07/18 <Ildefonso Mckeon - Last Filed: 06/07/18 18:26> Results - Labs CBC & Chem 7: 06/06/18 14:00 06/06/18 14:00 Labs: Laboratory Results - last 24 hr 06/06/18 06/06/18 06/06/18 14:00 14:00 14:00 WBC 6.6 RBC 2.39 L Hgb 6.1 L* Hct 19.8 L* MCV 83.0 MCH 25.5 L MCHC 30.7 L RDW 30.0 H Plt Count 491 H MPV 7.8 Prelim Diff (Auto) Slide review pending Neut % (Auto) 76.1 H Lymph % (Auto) 16.2 [place] % (Auto) 6.9 Eos % (Auto) 0.2 Baso % (Auto) 0.6 Neut # (Auto) 5.0 Lymph # (Auto) 1.1 [place] # (Auto) 0.5 Eos # (Auto) 0.0 Baso # (Auto) 0.0 WBC Differential . Diff Scan Auto diff confirmed Differential Comment . Platelet Estimate Normal Platelet Morphology Normal Dimorphic RBCs Present H Target Cells 1+ H Ovalocytes 1+ H Keratocytes Occ H PT 10.0 INR 1.0 APTT 20.1 L Sodium 147 H Potassium 3.6 Chloride 110 H Carbon Dioxide 24.2 Anion Gap 13 BUN 11 Creatinine 1.00 Estimated GFR 75 L Random Glucose 126 H Lactic Acid Calcium 8.3 L Magnesium 1.8 Total Bilirubin 0.3 AST 25 ALT 15 Alkaline Phosphatase 110 Total Creatine Kinase 29 L Troponin I Less than 0.02 L Total Protein 6.5 Albumin 2.6 L Blood Type Antibody Screen Ab Screen Tube Method Crossmatch 06/06/18 06/06/18 06/06/18 14:00 14:15 15:15 WBC RBC Hgb Hct MCV MCH MCHC RDW Plt Count MPV Prelim Diff (Auto) Neut % (Auto) Lymph % (Auto) [place] % (Auto) Eos % (Auto) Baso % (Auto) Neut # (Auto) Lymph # (Auto) [place] # (Auto) Eos # (Auto) Baso # (Auto) WBC Differential Diff Scan Differential Comment Platelet Estimate Platelet Morphology Dimorphic RBCs Target Cells Ovalocytes Keratocytes PT INR APTT Sodium Potassium Chloride Carbon Dioxide Anion Gap BUN Creatinine Estimated GFR Random Glucose Lactic Acid 1.9 Calcium Magnesium Total Bilirubin AST ALT Alkaline Phosphatase Total Creatine Kinase Troponin I Total Protein Albumin Blood Type A Positive Antibody Screen Positive Ab Screen Tube Method Negative Crossmatch See Detail - Imaging Impressions Chest X-Ray 06/06/18 13:47 CONCLUSION: Negative examination. Head CT 06/06/18 14:12 CONCLUSION: <Laura Barajas - Last Filed: 06/06/18 17:06> - Labs CBC & Chem 7: 06/07/18 01:55 06/06/18 14:00 Labs: Laboratory Results - last 24 hr 06/06/18 06/06/18 06/06/18 14:00 15:15 17:31 WBC RBC Hgb Hct MCV MCH MCHC RDW Plt Count MPV Sodium 147 H Potassium 3.6 Chloride 110 H Carbon Dioxide 24.2 Anion Gap 13 BUN 11 Creatinine 1.00 Estimated GFR 75 L Random Glucose 126 H Calcium 8.3 L Magnesium 1.8 Iron 17 L TIBC 290 % Saturation 5.9 L Ferritin 73 Total Bilirubin 0.3 AST 25 ALT 15 Alkaline Phosphatase 110 Total Creatine Kinase 29 L Troponin I Less than 0.02 L Total Protein 6.5 Albumin 2.6 L Crossmatch See Detail MTS Gel Crossmatch See Detail 06/06/18 06/06/18 06/07/18 18:44 18:44 01:55 WBC RBC Hgb Hct MCV MCH MCHC RDW Plt Count MPV Sodium Potassium Chloride Carbon Dioxide Anion Gap BUN Creatinine Estimated GFR Random Glucose Calcium Magnesium Iron Cancelled TIBC Cancelled % Saturation Cancelled Ferritin Cancelled Total Bilirubin AST ALT Alkaline Phosphatase Total Creatine Kinase Troponin I Less than 0.02 L Less than 0.02 L Total Protein Albumin Crossmatch MTS Gel Crossmatch 06/07/18 01:55 WBC 7.8 RBC 3.32 L Hgb 9.2 L D Hct 27.7 L MCV 83.4 MCH 27.7 MCHC 33.2 RDW 18.9 H D Plt Count 358 MPV 7.7 Sodium Potassium Chloride Carbon Dioxide Anion Gap BUN Creatinine Estimated GFR Random Glucose Calcium Magnesium Iron TIBC % Saturation Ferritin Total Bilirubin AST ALT Alkaline Phosphatase Total Creatine Kinase Troponin I Total Protein Albumin Crossmatch MTS Gel Crossmatch <Ildefonso Mckeon - Last Filed: 06/07/18 18:26> Assessment and Plan - Plan Assessment: - Anemia- normocytic, hypochromic Per RN, she cleaned off pt on arrival and noticed black, tarry stools. Pt has not noticed this at home or BRB in his stool. Does report nausea and vomiting since yesterday, denies hematemesis and coffee ground emesis. Of note, pt is on iron supplements. Pt denies any abdominal pain, dysphagia, odynophagia. Last EGD and colonoscopy in April --> Diverticulosis in the sigmoid and descending colon, internal and external hemorrhoids, and in the mid esophagus biopsy was taken that was consistent with invasive poorly differentiated squamous cell carcinoma. - Recent diagnosis of esophageal cancer- followed by Dr. Marie, has not yet been started on treatment. Per family member at bedside pt was to have PET scan on the as well as endoscopic ultrasound done by Dr. Moncada at [facility] tomorrow. - History of PAD, recent iliac stent placement, pt is on Plavix and ASA. Discussed with Dr. Moncada over the phone, pt was initially planned for EUS tomorrow, however now that pt is currently admitted to [facility], he will come here for procedure tomorrow. Will make pt NPO and obtain consent Plan: EGD/EUS tomorrow with Dr. Moncada Obtain consent NPO after MN Protonix gtt 1 U PRBCs ordered Monitor H/H Further recommendations to follow Pt has been seen and examined by myself and Dr. Mckeon and this note is written on his behalf <Laura Barajas - Last Filed: 06/06/18 17:06> - Plan Patient was seen and examined, agree with above note, had esophageal cancer, was supposed to have endoscopic ultrasound tomorrow by Dr. Mendez so we will continue with this plan and this will serve also a diagnostic for his bleeding <Ildefonso Mckeon - Last Filed: 06/07/18 18:26>
--- NOTE | 2018-06-06 17:24 | P.HP ---
History of Present Illness Primary Care Physician: PROVIDER NON STAFF History of Present Illness: Patient is a 63-year-old male recently Diagnosed with esophageal cancer pathology came out poorly differentiated differentiated adenocarcinoma. Patient was admitted sometime in April here because of a right foot hallux gangrene that ended up having amputated on May 10. Patient was discharged on Plavix and aspirin. At that time also had some GI symptoms and anemia and an EGD was done then on the which showed esophageal cancer with poorly differentiated adenocarcinoma. Patient was sent home on PPI and iron. A colonoscopy shows diverticulosis. Patient was brought in by his very good friend as he was noted to be pale for the past 2-3 days. Yesterday evening started vomiting previously ingested food bilious in color and noted black stools on almost on a daily basis. Patient is on iron pills. Because of increasing weakness he was brought in here and was noted to have a hemoglobin of 6.1. Patient also while down here complaining of some chest discomfort for a few seconds with no diaphoresis. The EKG shows no sign normal sinus rhythm and troponin was negative. While patient was being cleaned up by staff was noted to have lots of melanotic stools. Patient admitted for further evaluation and management. Inpatient Certification: I certify that the inpatient services were ordered in accordance with Medicare regulations governing the order. This includes certification that hospital inpatient services are reasonable and necessary and in the case of services not specified as inpatient-only under 42 CFR 419.22(n), that they are appropriately provided as inpatient services in accordance to with the 2-midnight benchmark under 43 CFR 412.3(e) Estimated Total Length of Stay (Days): 2 Plans for Post Hospital Care: Not yet determined PMF[facility] - History History Provided By: Friend - Medical History Medical History: Medical History (Last Reviewed 06/07/18 @ 14:29 by Carlos Woods) Amputated great toe of right foot Anemia Bypass graft stenosis GERD (gastroesophageal reflux disease) HTN (hypertension) High cholesterol Throat cancer - Surgical History Surgical History: Surgical History (Last Reviewed 06/07/18 @ 14:29 by Carlos Woods) S/P surgical manipulation of ankle joint - Tobacco History Second Hand Smoke Exposure: Yes Tobacco Use In Past 30 Days: Yes Smoking Status: Current every day smoker Tobacco Type: Cigarettes - Alcohol History How Often Do You Have a Drink Containing Alcohol: 4 or more times a week - Substance Use History Substance History: No History of Abuse - Travel History Recent Travel in the [place] Within the Last 8 Weeks: No Recent Travel Out of the Country Within the Last 8 Weeks: No - Immunization History Tetanus Immunization: Unsure Hx Influenza Vaccine This Season: No Medications and Allergies Allergies Allergy/AdvReac Type Severity Reaction Status Date / Time No Known Allergies Allergy Unverified 05/02/18 15:29 Home Medications Medication Instructions Recorded Confirmed Type aspirin 81 mg PO DAILY 06/06/18 06/06/18 History atorvastatin 40 mg PO DAILY 06/06/18 06/06/18 History clonidine HCl 0.1 mg PO BID 06/06/18 06/06/18 History clopidogrel 75 mg PO DAILY 06/06/18 06/06/18 History ferrous sulfate [iron] 325 mg PO DAILY 06/06/18 06/06/18 History lisinopril 20 mg PO DAILY 06/06/18 06/06/18 History pantoprazole 20 mg PO DAILY 06/06/18 06/06/18 History Exam Vital signs: Vital Signs 06/06/18 11:12 06/06/18 14:29 06/06/18 15:15 Temperature 97.7 F Pulse Rate 79 73 73 Respiratory Rate 16 19 16 Blood Pressure 174/73 H 177/73 H 156/62 H Pulse Oximetry 99 98 98 06/06/18 16:56 06/06/18 17:13 Temperature 97.9 F 97.6 F Pulse Rate 76 77 Respiratory Rate 23 15 Blood Pressure 158/65 H 153/66 H Pulse Oximetry 97 100 Intake & Output 06/05/18 06/06/18 06/06/18 18:59 06:59 18:59 Intake Total 0 / 0 Balance 0 / 0 Weight 72.575 kg Intake: Intake (Blood Product) Amt 0 / 0 Rbc As-3 Leukoreduced Unit 0 / 0 [id number] Narrative: Patient is awake alert oriented 3 not in any form of distress Very pale looking gentleman pale palpebral conjunctivae neck was supple no rigidity Chest lungs clear breath sounds no rales no wheezes Regular rhythm no murmur Abdomen is soft nontender with good bowel sounds Extremities right foot with some swelling. Status post amputation site - right hallux dry clean no erythema. Results - Labs CBC & Chem 7: 06/08/18 05:39 06/09/18 04:43 Labs: Laboratory Results - last 24 hr 06/06/18 06/06/18 06/06/18 14:00 14:00 14:00 WBC 6.6 RBC 2.39 L Hgb 6.1 L* Hct 19.8 L* MCV 83.0 MCH 25.5 L MCHC 30.7 L RDW 30.0 H Plt Count 491 H MPV 7.8 Prelim Diff (Auto) Slide review pending Neut % (Auto) 76.1 H Lymph % (Auto) 16.2 [place] % (Auto) 6.9 Eos % (Auto) 0.2 Baso % (Auto) 0.6 Neut # (Auto) 5.0 Lymph # (Auto) 1.1 [place] # (Auto) 0.5 Eos # (Auto) 0.0 Baso # (Auto) 0.0 WBC Differential . Diff Scan Auto diff confirmed Differential Comment . Platelet Estimate Normal Platelet Morphology Normal Dimorphic RBCs Present H Target Cells 1+ H Ovalocytes 1+ H Keratocytes Occ H PT 10.0 INR 1.0 APTT 20.1 L Sodium 147 H Potassium 3.6 Chloride 110 H Carbon Dioxide 24.2 Anion Gap 13 BUN 11 Creatinine 1.00 Estimated GFR 75 L Random Glucose 126 H Lactic Acid Calcium 8.3 L Magnesium 1.8 Total Bilirubin 0.3 AST 25 ALT 15 Alkaline Phosphatase 110 Total Creatine Kinase 29 L Troponin I Less than 0.02 L Total Protein 6.5 Albumin 2.6 L Blood Type Antibody Screen Ab Screen Tube Method Crossmatch 06/06/18 06/06/18 06/06/18 14:00 14:15 15:15 WBC RBC Hgb Hct MCV MCH MCHC RDW Plt Count MPV Prelim Diff (Auto) Neut % (Auto) Lymph % (Auto) [place] % (Auto) Eos % (Auto) Baso % (Auto) Neut # (Auto) Lymph # (Auto) [place] # (Auto) Eos # (Auto) Baso # (Auto) WBC Differential Diff Scan Differential Comment Platelet Estimate Platelet Morphology Dimorphic RBCs Target Cells Ovalocytes Keratocytes PT INR APTT Sodium Potassium Chloride Carbon Dioxide Anion Gap BUN Creatinine Estimated GFR Random Glucose Lactic Acid 1.9 Calcium Magnesium Total Bilirubin AST ALT Alkaline Phosphatase Total Creatine Kinase Troponin I Total Protein Albumin Blood Type A Positive Antibody Screen Positive Ab Screen Tube Method Negative Crossmatch See Detail - Imaging Impressions Chest X-Ray 06/06/18 13:47 CONCLUSION: Negative examination. Head CT 06/06/18 14:12 CONCLUSION: Caprini VTE Risk Assessment Caprini VTE Risk Assessment: Moderate/High Risk (score >= 2) VTE Pharmacological Exception Reason: Hemorrhage Caprini Risk Assessment Model: Point Value = 1 Point Value = 2 Point Value = 3 Point Value = 5 Age 41-60 Minor surgery BMI > 25 kg/m2 Swollen legs Varicose veins or History of unexplained or recurrent spontaneous Oral contraceptives or hormone replacement Sepsis (< 1 month) Serious lung disease, including pneumonia (< 1 month) Abnormal pulmonary function Acute myocardial infarction Congestive heart failure (< 1 month) History of inflammatory bowel disease Medical patient at bed rest Age 61-74 Arthroscopic surgery Major open surgery (> 45 min) Laparoscopic surgery (> 45 min) Malignancy Confined to bed (> 72 hours) Immobilizing plaster cast Central venous access Age >= 75 History of VTE Family history of VTE Factor V Leiden Prothrombin [id number] Lupus anticoagulant Anticardiolipin antibodies Elevated serum homocysteine Heparin-induced thrombocytopenia Other congenital or acquired thrombophilia Stroke (< 1 month) Elective arthroplasty Hip, pelvis, or leg fracture Acute spinal cord injury (< 1 month) Prophylaxis Regimen: Total Risk Factor Score Risk Level Prophylaxis Regimen 0-1 Low Early ambulation 2 Moderate Order ONE of the following: *Sequential Compression Device (SCD) *Heparin 5000 units SQ BID 3-4 Higher Order ONE of the following medications: *Heparin 5000 units SQ TID *Enoxaparin/Lovenox 40 mg SQ daily (WT < 150 kg, CrCl > 30 mL/min) *Enoxaparin/Lovenox 30 mg SQ daily (WT < 150 kg, CrCl > 10-29 mL/min) *Enoxaparin/Lovenox 30 mg SQ BID (WT < 150 kg, CrCl > 30 mL/min) AND/OR *Sequential Compression Device (SCD) 5 or more Highest Order ONE of the following medications: *Heparin 5000 units SQ TID (Preferred with Epidurals) *Enoxaparin/Lovenox 40 mg SQ daily (WT < 150 kg, CrCl > 30 mL/min) *Enoxaparin/Lovenox 30 mg SQ daily (WT < 150 kg, CrCl > 10-29 mL/min) *Enoxaparin/Lovenox 30 mg SQ BID (WT < 150 kg, CrCl > 30 mL/min) AND *Sequential Compression Device (SCD) Assessment and Plan - Plan 63-year-old male presenting with generalized weakness secondary to severe anemia Severe anemia with hemoglobin of 6.1 with reported melanotic stools. 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 -Workup was in process as outpatient by Dr. Marie from oncology service- will consult him in am -We will transfuse patients with total 2 units of RBC. First unit ongoing - GI consult - Patient known to our GI group. And plan was to have another EGD done 6 weeks which is approximately around this time. - Started on PPI drip. - [facility] Iron studies. consider IV Iron - CBC in am History of peripheral artery disease Status post amputation of the right great hallux May 10 - monitor foot- with some swelling but no signs of infection- -Hold off on Plavix and aspirin now with severe anemia. -Follow-up with Dr. Ly in 3 weeks-which should be around this week from discharge from May 11 -If any issues arise from the amputation site patient is known to Dr. Sommers Chest pain which could be precipitated by severe anemia- now chest pain free. - lasting for few minutes History of HTN - Twelve-lead EKG negative. First set of troponin negative will get another 2 sets -With history of hypertension and peripheral artery disease patient has likelihood of possible underlying coronary disease. - We will consider doing a myocardial perfusion stress test if 3 sets of troponin negative - for now- start on Nitrates 1/2 in to anterior chest wall q 8 History of hypertension. -Monitor for now. Will hold off on outpatient medication of lisinopril 20 mg daily if and clonidine 0.1 mg daily because of severe anemia. History of hyperlipidemia. Continue on atorvastatin 40 mg daily. hold off on chemical prophylaxis with severe anemia SCDs
--- NOTE | 2018-06-06 17:50 | ECG ---
Date Performed: 06/06/2018 Time Performed: 14:10:57 PTAGE: 63 years EKG: Sinus rhythm NORMAL ECG No significant change from prior electrocardiogram. PREVIOUS TRACING : 05/02/2018 16.08 DOCTOR: Alfred Altamirano Interpretating Date/Time 06/06/2018 17:49:14
[2018-06-06] MEDS ORDERED: Pantoprazole Inj 80 MG in Sodium Chlor 0.9% Inj 100 ML IV.CONT SCH (18:00)
[2018-06-06 22:11] LABS: % Iron Saturation 5.9 % (20-50); Iron 17 mcg/dL (65-175); Total Iron Binding Capacity 290 mcg/dL (250-450)
[2018-06-06 22:12] LABS: Ferritin 73 ng/mL (26-388)
[2018-06-07 02:22] LABS: Hematocrit 27.7 % (39.0-51.0); Hemoglobin 9.2 gm/dL (13.0-17.0); Mean Corpuscular HGB Conc 33.2 % (32.0-36.0); Mean Corpuscular Hemoglobin 27.7 pg (27.0-34.0); Mean Corpuscular Volume 83.4 fL (80.0-100.0); Mean Platelet Volume 7.7 fL (7.0-11.0); Platelet Count 358 th/mm3 (150-450); Red Blood Count 3.32 mil/mm3 (4.50-5.90); Red Cell Distribution Width 18.9 % (11.6-17.2); White Blood Count 7.8 th/mm3 (4.0-11.0)
[2018-06-07] MEDS ORDERED: Chlorhexidine Gluconate 2% 1 Pack (2 Cloths) TOPICAL SCH (03:00)
[2018-06-07] MEDS ORDERED: Sodium Chlor 0.9% Inj 500 ML IV.SIG SCH (03:00)
--- NOTE | 2018-06-07 09:43 | P.PN ---
Subjective Interval history: Follow-up GI bleed and symptomatic anemia. No new complaints. Patient denies complaining of chest pain. He said he was having epigastric discomfort from vomiting yesterday. No anginal symptoms. He is guaiac positive. Tolerated EUS awaiting return call from GI if patient can be started on diet for lunch as well as clearance for aspirin and Plavix. Also discussed with patient's oncologist regarding EGD/EUS results Physical Exam Vital signs: Vital Signs 06/06/18 11:12 06/06/18 14:29 06/06/18 15:15 Temperature 97.7 F Pulse Rate 79 73 73 Respiratory Rate 16 19 16 Blood Pressure 174/73 H 177/73 H 156/62 H Pulse Oximetry 99 98 98 06/06/18 16:56 06/06/18 17:13 06/06/18 18:55 Temperature 97.9 F 97.6 F Pulse Rate 76 77 87 Respiratory Rate 23 15 18 Blood Pressure 158/65 H 153/66 H 149/68 H Pulse Oximetry 97 100 99 06/06/18 19:23 06/06/18 20:19 06/07/18 00:03 Temperature 98.2 F 98.7 F Pulse Rate 69 67 Respiratory Rate 18 18 18 Blood Pressure 112/54 L 155/66 H Pulse Oximetry 100 99 06/07/18 00:26 06/07/18 00:49 06/07/18 04:00 Temperature 97.8 F 97.9 F Pulse Rate 53 L 66 66 Respiratory Rate 18 16 16 Blood Pressure 163/70 H 163/67 H 140/65 Pulse Oximetry 100 98 94 L 06/07/18 08:00 Temperature 98.1 F Pulse Rate 77 Respiratory Rate 16 Blood Pressure 164/72 H Pulse Oximetry 92 L Intake & Output 06/06/18 06/07/18 06/07/18 18:59 06:59 18:59 Intake Total 0 / 0 1235 / 1235 Balance 0 / 0 1235 / 1235 Weight 72.575 kg Intake: IV 35 / 35 Protonix Inj 80 MG In NS Inj 35 35 / 35 ML @ 420 mls/hr IV.SIG BOLUS ONE Rx#:[id number] Intake (Blood Product) Amt 0 / 0 1200 / 1200 Rbc As-3 Leukoreduced Unit 400 / 400 [id number] Rbc As-3 Leukoreduced Unit 400 / 400 [id number] Rbc As-3 Leukoreduced Unit 0 / 0 400 / 400 [id number] Narrative: Patient is awake alert oriented 3 not in any form of distress Chest lungs clear breath sounds no rales no wheezes Regular rhythm no murmur Abdomen is soft nontender with good bowel sounds Extremities right foot with some swelling. Status post amputation site - right hallux dry clean no erythema. Results - Labs CBC & Chem 7: 06/07/18 01:55 06/06/18 14:00 Laboratory Results - last 24 hr 06/06/18 06/06/18 06/06/18 14:00 14:00 14:00 WBC 6.6 RBC 2.39 L Hgb 6.1 L* Hct 19.8 L* MCV 83.0 MCH 25.5 L MCHC 30.7 L RDW 30.0 H Plt Count 491 H MPV 7.8 Prelim Diff (Auto) Slide review pending Neut % (Auto) 76.1 H Lymph % (Auto) 16.2 [place] % (Auto) 6.9 Eos % (Auto) 0.2 Baso % (Auto) 0.6 Neut # (Auto) 5.0 Lymph # (Auto) 1.1 [place] # (Auto) 0.5 Eos # (Auto) 0.0 Baso # (Auto) 0.0 WBC Differential . Diff Scan Auto diff confirmed Differential Comment . Platelet Estimate Normal Platelet Morphology Normal Dimorphic RBCs Present H Target Cells 1+ H Ovalocytes 1+ H Keratocytes Occ H PT 10.0 INR 1.0 APTT 20.1 L Sodium 147 H Potassium 3.6 Chloride 110 H Carbon Dioxide 24.2 Anion Gap 13 BUN 11 Creatinine 1.00 Estimated GFR 75 L Random Glucose 126 H Lactic Acid Calcium 8.3 L Magnesium 1.8 Iron 17 L TIBC 290 % Saturation 5.9 L Ferritin 73 Total Bilirubin 0.3 AST 25 ALT 15 Alkaline Phosphatase 110 Total Creatine Kinase 29 L Troponin I Less than 0.02 L Total Protein 6.5 Albumin 2.6 L Blood Type Antibody Screen Ab Screen Tube Method Crossmatch MTS Gel Crossmatch 06/06/18 06/06/18 06/06/18 14:00 14:15 15:15 WBC RBC Hgb Hct MCV MCH MCHC RDW Plt Count MPV Prelim Diff (Auto) Neut % (Auto) Lymph % (Auto) [place] % (Auto) Eos % (Auto) Baso % (Auto) Neut # (Auto) Lymph # (Auto) [place] # (Auto) Eos # (Auto) Baso # (Auto) WBC Differential Diff Scan Differential Comment Platelet Estimate Platelet Morphology Dimorphic RBCs Target Cells Ovalocytes Keratocytes PT INR APTT Sodium Potassium Chloride Carbon Dioxide Anion Gap BUN Creatinine Estimated GFR Random Glucose Lactic Acid 1.9 Calcium Magnesium Iron TIBC % Saturation Ferritin Total Bilirubin AST ALT Alkaline Phosphatase Total Creatine Kinase Troponin I Total Protein Albumin Blood Type A Positive Antibody Screen Positive Ab Screen Tube Method Negative Crossmatch See Detail MTS Gel Crossmatch 06/06/18 06/06/18 06/06/18 17:31 18:44 18:44 WBC RBC Hgb Hct MCV MCH MCHC RDW Plt Count MPV Prelim Diff (Auto) Neut % (Auto) Lymph % (Auto) [place] % (Auto) Eos % (Auto) Baso % (Auto) Neut # (Auto) Lymph # (Auto) [place] # (Auto) Eos # (Auto) Baso # (Auto) WBC Differential Diff Scan Differential Comment Platelet Estimate Platelet Morphology Dimorphic RBCs Target Cells Ovalocytes Keratocytes PT INR APTT Sodium Potassium Chloride Carbon Dioxide Anion Gap BUN Creatinine Estimated GFR Random Glucose Lactic Acid Calcium Magnesium Iron Cancelled TIBC Cancelled % Saturation Cancelled Ferritin Cancelled Total Bilirubin AST ALT Alkaline Phosphatase Total Creatine Kinase Troponin I Less than 0.02 L Total Protein Albumin Blood Type Antibody Screen Ab Screen Tube Method Crossmatch MTS Gel Crossmatch See Detail 06/07/18 06/07/18 01:55 01:55 WBC 7.8 RBC 3.32 L Hgb 9.2 L D Hct 27.7 L MCV 83.4 MCH 27.7 MCHC 33.2 RDW 18.9 H D Plt Count 358 MPV 7.7 Prelim Diff (Auto) Neut % (Auto) Lymph % (Auto) [place] % (Auto) Eos % (Auto) Baso % (Auto) Neut # (Auto) Lymph # (Auto) [place] # (Auto) Eos # (Auto) Baso # (Auto) WBC Differential Diff Scan Differential Comment Platelet Estimate Platelet Morphology Dimorphic RBCs Target Cells Ovalocytes Keratocytes PT INR APTT Sodium Potassium Chloride Carbon Dioxide Anion Gap BUN Creatinine Estimated GFR Random Glucose Lactic Acid Calcium Magnesium Iron TIBC % Saturation Ferritin Total Bilirubin AST ALT Alkaline Phosphatase Total Creatine Kinase Troponin I Less than 0.02 L Total Protein Albumin Blood Type Antibody Screen Ab Screen Tube Method Crossmatch MTS Gel Crossmatch - Imaging Impressions Chest X-Ray 06/06/18 13:47 CONCLUSION: Negative examination. Head CT 06/06/18 14:12 CONCLUSION: - Procedures EGD/EUS Assessment and Plan - Assessment (1) GI (gastrointestinal bleed) Code(s): K92.2 - Gastrointestinal hemorrhage, unspecified Status: Acute (2) Anemia Code(s): D64.9 - Anemia, unspecified Status: Acute - Plan 63-year-old male presenting with generalized weakness secondary to severe anemia Severe anemia with hemoglobin of 6.1 with reported melanotic stools guaiac positive. 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 -Dw Dr. Marie from oncology service, patient will be seen in the outpatient setting. He will need chemotherapy prior to surgery -Improved anemia status post packed RBC. Keep hemoglobin at least 8 -Tolerated EGD/EUS. Continue PPI. Will clarify with GI when to resume antiplatelets -CBC in am History of peripheral artery disease Status post amputation of the right great hallux May 10 -monitor foot- with some swelling but no signs of infection- -Hold off on Plavix and aspirin now with severe anemia. -Follow-up with Dr. Ly in 3 weeks-which should be around this week from discharge from May 11 -If any issues arise from the amputation site patient is known to Dr. Sommers Chest pain. Patient denies having chest pain. He was having epigastric discomfort from vomiting History of HTN - Patient ruled out for [place] - With history of hypertension and peripheral artery disease patient has likelihood of possible underlying coronary disease. - We will consider doing a myocardial perfusion stress test which can be done outpatient History of hypertension. Uncontrolled. -Restart clonidine History of hyperlipidemia. Continue on atorvastatin 40 mg daily. DVT prophylaxis. Hold off on chemical prophylaxis with severe anemia SCD Discharge Planning: Discharge in 1-2 days when cleared by GI (1) GI (gastrointestinal bleed) Qualifiers: GI bleed type/associated pathology: melena Qualified Code(s): K92.1 - Melena (2) Anemia Qualifiers: Anemia type: unspecified type Qualified Code(s): D64.9 - Anemia, unspecified
--- NOTE | 2018-06-07 11:39 | P.PCN ---
Date of procedure: 06/07/18 Pre-op diagnosis: Esophageal cancer Procedure: PROCEDURE PERFORMED EGD followed by endoscopic ultrasound INDICATION FOR PROCEDURE Anemia, esophageal cancer PROCEDURE: The procedure, risks and benefits were discussed with Patient/POA and informed consent was obtained. Anesthesia sedated Patient with Diprivan. Patient was placed in the left lateral decubitus position. EGD: The Pentax videoscope was introduced through the oropharynx and advanced to the second portion of the duodenum under direct visualization. Retroflexion was performed in the stomach. FINDINGS: The esophagus there was a mild abnormality of the mid esophageal mucosa at 35 cm from the incisors slightly raised on the edges with mildly depressed on the middle mucosa but no ulcerations no erosions no blood or bleeding The stomach this was unremarkable and within normal limits The duodenum this was unremarkable with normal limits EUS: The Pentax videoscope was introduced through the oropharynx and advanced to the stomach. FINDINGS: The endoscopic ultrasound appearance of the mucosal disruption noted on EGD appears to show thickening of the first layer no distinct invasion noted so this most likely represents a T1 a lesion no lymphadenopathy seen ESTIMATED BLOOD LOSS: None SPECIMENS REMOVED: None COMPLICATIONS: None IMPRESSION: Esophageal cancer T1a N0 PLAN: Continue with current supportive care Advance diet Most likely this lesion is amenable to endoscopic resection Anesthesia: MAC Surgeon: Jose Moncada Pathology: none sent Condition: stable Disposition: floor
[2018-06-08 06:31] LABS: Baso % (Auto) 0.6 % (0.0-2.0); Eos # (Auto) 1.1 th/mm3 (0.0-0.4); Eos % (Auto) 15.1 % (0.0-4.0); Hematocrit 27.7 % (39.0-51.0); Hemoglobin 9.2 gm/dL (13.0-17.0); Lymph # (Auto) 1.9 th/mm3 (1.0-4.8); Lymph % (Auto) 25.5 % (9.0-44.0); Mean Corpuscular HGB Conc 33.1 % (32.0-36.0); Mean Corpuscular Hemoglobin 27.8 pg (27.0-34.0); Mean Corpuscular Volume 83.9 fL (80.0-100.0); Mean Platelet Volume 7.7 fL (7.0-11.0); Mono # (Auto) 0.8 th/mm3 (0.0-0.9); Mono % (Auto) 10.3 % (0.0-8.0); Neut # (Auto) 3.7 th/mm3 (1.8-7.7); Neut % (Auto) 48.5 % (16.0-70.0); Platelet Count 347 th/mm3 (150-450); Red Blood Count 3.31 mil/mm3 (4.50-5.90); Red Cell Distribution Width 18.3 % (11.6-17.2); White Blood Count 7.6 th/mm3 (4.0-11.0)
[2018-06-08 06:58] LABS: Anion Gap 8 meq/L (5-15); Blood Urea Nitrogen 9 mg/dL (7-18); Calcium 7.5 mg/dL (8.5-10.1); Carbon Dioxide 26.5 meq/L (21.0-32.0); Chloride 111 meq/L (98-107); Glomerular Filtration Rate Greater Than 89 mL/min (>89); Glucose,Random 95 mg/dL (74-106); Magnesium 1.6 mg/dL (1.5-2.5); Sodium 145 meq/L (136-145)
[2018-06-08 07:19] LABS: Potassium 2.9 meq/L (3.5-5.1)
[2018-06-08 07:40] LABS: Ovalocytes 1+; Platelet Estimate Normal (Normal); Platelet Morphology Normal (Normal)
--- NOTE | 2018-06-08 09:40 | P.PNGI ---
Subjective Interval history: Pt is resting in bed, just finished breakfast, no nausea, no vomiting, no melena , las bm was 2 days ago. <ChaoharveyKierstenhudson - Last Filed: 06/08/18 09:29> Interval history: Patient was seen and examined, agree with above note, patient is doing okay, patient has early stages esophageal cancer, he might be a good candidate for endoscopic treatment, there is possibility at [facility] in [place], I discussed the case with Dr. Garcia and he would like to see him as an outpatient, I discussed with the patient and he said he would like to talk to his family and then will make a final decision, he can follow with Dr. Mendez as an outpatient in 1 week and if he is agreeable for that he can be set for that with Dr. Cortés, will sign off at this time <Ildefonso Mckeon - Last Filed: 06/08/18 18:02> Physical Exam Vital signs: Vital Signs 06/07/18 11:36 06/07/18 12:00 06/07/18 14:51 Temperature 98.0 F 97.9 F Pulse Rate 85 62 Respiratory Rate 18 16 Blood Pressure 140/63 176/75 H 168/74 H Pulse Oximetry 95 98 06/07/18 16:00 06/07/18 17:42 06/07/18 20:00 Temperature 98.8 F 98.2 F 99.3 F Pulse Rate 90 60 80 Respiratory Rate 16 18 Blood Pressure 160/57 H 172/72 H 156/67 H Pulse Oximetry 96 99 97 06/08/18 00:00 06/08/18 04:00 06/08/18 08:00 Temperature 98.8 F 98.1 F 97.5 F L Pulse Rate 77 70 69 Respiratory Rate 14 18 Blood Pressure 147/66 H 161/66 H 178/75 H Pulse Oximetry 97 95 97 Intake & Output 06/07/18 06/08/18 06/08/18 18:59 06:59 18:59 Intake Total 600 / 600 Output Total 225 / 225 Balance 600 / 600 -225 / -225 Weight 69.5 kg Intake: IV 600 / 600 LR 1000 mL Inj 1,000 ML @ 30 600 / 600 mls/hr IV.SIG .Q24H [facility] Rx#: [id number] Output: Urine 225 / 225 Other: Date of Last Bowel Movement 06/07/18 06/07/18 - Constitutional no acute distress - Routine HEENT Exam Head: Present: normocephalic ENT: Present: mucous membranes moist - Routine Neck Exam Present: supple - Routine Respiratory Exam Present: CTA bilaterally - Routine Cardiovascular Exam Present: RRR - Routine Abdominal Exam Present: soft, normoactive bowel sounds. Absent: tenderness, distended - Routine Neurological Exam Present: alert, oriented X3 - Routine Psychiatric Exam Present: normal affect <Sylvia Houser - Last Filed: 06/08/18 09:29> Vital signs: Vital Signs 06/07/18 20:00 06/08/18 00:00 06/08/18 04:00 Temperature 99.3 F 98.8 F 98.1 F Pulse Rate 80 77 70 Respiratory Rate 14 Blood Pressure 156/67 H 147/66 H 161/66 H Pulse Oximetry 97 97 95 06/08/18 08:00 06/08/18 12:00 06/08/18 16:00 Temperature 97.5 F L 98 F 97.9 F Pulse Rate 83 69 72 Respiratory Rate 18 Blood Pressure 178/75 H 155/69 H 145/65 H Pulse Oximetry 97 98 98 Intake & Output 06/07/18 06/08/18 06/08/18 18:59 06:59 18:59 Intake Total 600 / 600 Output Total 225 / 225 Balance 600 / 600 -225 / -225 Weight 69.5 kg Intake: IV 600 / 600 LR 1000 mL Inj 1,000 ML @ 30 600 / 600 mls/hr IV.SIG .Q24H [facility] Rx#: [id number] Output: Urine 225 / 225 Other: Date of Last Bowel Movement 06/07/18 06/07/18 06/07/18 <Ildefonso Mckeon - Last Filed: 06/08/18 18:02> Results - Labs CBC & Chem 7: 06/08/18 05:39 06/08/18 05:39 Laboratory Results - last 24 hr 06/06/18 06/08/18 06/08/18 14:00 05:39 05:39 WBC 7.6 RBC 3.31 L Hgb 9.2 L Hct 27.7 L MCV 83.9 MCH 27.8 MCHC 33.1 RDW 18.3 H Plt Count 347 MPV 7.7 Prelim Diff (Auto) Addressing Machine Operator Neut % (Auto) 48.5 Lymph % (Auto) 25.5 [place] % (Auto) 10.3 H Eos % (Auto) 15.1 H Baso % (Auto) 0.6 Neut # (Auto) 3.7 Lymph # (Auto) 1.9 [place] # (Auto) 0.8 Eos # (Auto) 1.1 H Baso # (Auto) 0.0 WBC Differential . Diff Scan Auto diff confirmed Differential Comment Auto diff final Platelet Estimate Normal Platelet Morphology Normal Ovalocytes 1+ H Sodium 145 Potassium 2.9 L* Chloride 111 H Carbon Dioxide 26.5 Anion Gap 8 BUN 9 Creatinine 0.78 Estimated GFR Greater than 89 Random Glucose 95 Calcium 7.5 L D Magnesium 1.6 Antibody Screen Positive H Ab Screen Tube Method Negative Microbiology 06/06/18 14:05 Blood - Peripheral Aerobic Blood Culture - Preliminary No growth in 1 day 06/06/18 14:05 Blood - Peripheral Anaerobic Blood Culture - Preliminary No growth in 1 day 06/06/18 14:15 Blood - Peripheral Aerobic Blood Culture - Preliminary No growth in 1 day 06/06/18 14:15 Blood - Peripheral Anaerobic Blood Culture - Preliminary No growth in 1 day - Procedures EGD/EUS <Sylvia Houser - Last Filed: 06/08/18 09:29> - Labs CBC & Chem 7: 06/08/18 05:39 06/08/18 05:39 Laboratory Results - last 24 hr 06/06/18 06/08/18 06/08/18 14:00 05:39 05:39 WBC 7.6 RBC 3.31 L Hgb 9.2 L Hct 27.7 L MCV 83.9 MCH 27.8 MCHC 33.1 RDW 18.3 H Plt Count 347 MPV 7.7 Prelim Diff (Auto) Addressing Machine Operator Neut % (Auto) 48.5 Lymph % (Auto) 25.5 [place] % (Auto) 10.3 H Eos % (Auto) 15.1 H Baso % (Auto) 0.6 Neut # (Auto) 3.7 Lymph # (Auto) 1.9 [place] # (Auto) 0.8 Eos # (Auto) 1.1 H Baso # (Auto) 0.0 WBC Differential . Diff Scan Auto diff confirmed Differential Comment Auto diff final Platelet Estimate Normal Platelet Morphology Normal Ovalocytes 1+ H Sodium 145 Potassium 2.9 L* Chloride 111 H Carbon Dioxide 26.5 Anion Gap 8 BUN 9 Creatinine 0.78 Estimated GFR Greater than 89 Random Glucose 95 Calcium 7.5 L D Magnesium 1.6 Antibody Screen Positive H Ab Screen Tube Method Negative Microbiology 06/08/18 13:00 Stool Stool Occult Blood (CARLYLE) - Final Hemoccult negative 06/06/18 14:05 Blood - Peripheral Aerobic Blood Culture - Preliminary No growth in 2 days 06/06/18 14:05 Blood - Peripheral Anaerobic Blood Culture - Preliminary No growth in 2 days 06/06/18 14:15 Blood - Peripheral Aerobic Blood Culture - Preliminary No growth in 2 days 06/06/18 14:15 Blood - Peripheral Anaerobic Blood Culture - Preliminary No growth in 2 days <Ildefonso Mckeon - Last Filed: 06/08/18 18:02> Assessment and Plan - Plan - Anemia- hgb today 9.2 s/p 3 units of blood Pt has been having dark black stools at home, has been 2 days since last BM Last EGD and colonoscopy in April --> Diverticulosis in the sigmoid and descending colon, internal and external hemorrhoids, and in the mid esophagus biopsy was taken that was consistent with invasive poorly differentiated squamous cell carcinoma. - Recent diagnosis of esophageal cancer- followed by Dr. Marie, has not yet been started on treatment. pt was to have PET scan on the S/P endoscopic ultrasound done by Dr. Moncada on 06/07/18 ----> Esophageal cancer T1a N0. Most likely this lesion is amenable to endoscopic resection - History of PAD, recent iliac stent placement, pt is on Plavix and ASA. Plan: - ANDREA - Monitor H/H - Pt is following with Dr. Kayleen george to [facility] from GI stand point Pt has been seen and examined by myself and Dr. Mckeon and this note is written on his behalf <Sylvia Houser - Last Filed: 06/08/18 09:29>
[2018-06-08] MEDS: Pantoprazole Sodium 20 MG DR Tablet PO SCH (12:07)
--- NOTE | 2018-06-08 15:21 | P.PN ---
Physical Exam Vital signs: Vital Signs 06/07/18 16:00 06/07/18 17:42 06/07/18 20:00 Temperature 98.8 F 98.2 F 99.3 F Pulse Rate 90 60 80 Respiratory Rate 16 18 Blood Pressure 160/57 H 172/72 H 156/67 H Pulse Oximetry 96 99 97 06/08/18 00:00 06/08/18 04:00 06/08/18 08:00 Temperature 98.8 F 98.1 F 97.5 F L Pulse Rate 77 70 69 Respiratory Rate 14 18 Blood Pressure 147/66 H 161/66 H 178/75 H Pulse Oximetry 97 95 97 06/08/18 12:00 Temperature 98 F Pulse Rate 69 Respiratory Rate Blood Pressure 155/69 H Pulse Oximetry 98 Intake & Output 06/07/18 06/08/18 06/08/18 18:59 06:59 18:59 Intake Total 600 / 600 Output Total 225 / 225 Balance 600 / 600 -225 / -225 Weight 69.5 kg Intake: IV 600 / 600 LR 1000 mL Inj 1,000 ML @ 30 600 / 600 mls/hr IV.SIG .Q24H [facility] Rx#: [id number] Output: Urine 225 / 225 Other: Date of Last Bowel Movement 06/07/18 06/07/18 Narrative: Subjective Interval history: Follow-up GI bleed and symptomatic anemia. Patient is in bed he appears. No nausea or vomiting today. Has black stool. No chest pain or shortness of breath. No abdominal pain. Physical Exam GENERAL: Cachectic male 63 yo in bed, appears in nad CARDIOVASCULAR: Regular rate and rhythm without murmurs, gallops, or rubs. RESPIRATORY: Breath sounds equal bilaterally. No accessory muscle use. GASTROINTESTINAL: Abdomen soft, non-tender, nondistended. MUSCULOSKELETAL: No cyanosis, or edema. BACK: Nontender without obvious deformity. No CVA tenderness. 63-year-old male presenting with generalized weakness secondary to severe anemia Severe anemia with hemoglobin of 6.1 with reported melanotic stools guaiac positive. 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 -Dw Dr. Marie from oncology service, patient will be seen in the outpatient setting. He will need chemotherapy prior to surgery -Improved anemia status post packed RBC. Keep hemoglobin at least 8 -Tolerated EGD/EUS. Continue PPI. Will clarify with GI when to resume antiplatelets -CBC in am History of peripheral artery disease Status post amputation of the right great hallux May 10 -monitor foot- with some swelling but no signs of infection- -Hold off on Plavix and aspirin now with severe anemia. -Follow-up with Dr. Ly in 3 weeks-which should be around this week from discharge from May 11 -If any issues arise from the amputation site patient is known to Dr. Sommers Chest pain. Patient denies having chest pain. He was having epigastric discomfort from vomiting History of HTN - Patient ruled out for [place] - With history of hypertension and peripheral artery disease patient has likelihood of possible underlying coronary disease. - We will consider doing a myocardial perfusion stress test which can be done outpatient History of hypertension. Uncontrolled. -Restart clonidine History of hyperlipidemia. Continue on atorvastatin 40 mg daily. DVT prophylaxis. Hold off on chemical prophylaxis with severe anemia SCD Discharge Planning: Discharge poss tomorrow Results - Labs CBC & Chem 7: 06/08/18 05:39 06/08/18 05:39 Laboratory Results - last 24 hr 06/06/18 06/08/18 06/08/18 14:00 05:39 05:39 WBC 7.6 RBC 3.31 L Hgb 9.2 L Hct 27.7 L MCV 83.9 MCH 27.8 MCHC 33.1 RDW 18.3 H Plt Count 347 MPV 7.7 Prelim Diff (Auto) Time Study Technologist Neut % (Auto) 48.5 Lymph % (Auto) 25.5 [place] % (Auto) 10.3 H Eos % (Auto) 15.1 H Baso % (Auto) 0.6 Neut # (Auto) 3.7 Lymph # (Auto) 1.9 [place] # (Auto) 0.8 Eos # (Auto) 1.1 H Baso # (Auto) 0.0 WBC Differential . Diff Scan Auto diff confirmed Differential Comment Auto diff final Platelet Estimate Normal Platelet Morphology Normal Ovalocytes 1+ H Sodium 145 Potassium 2.9 L* Chloride 111 H Carbon Dioxide 26.5 Anion Gap 8 BUN 9 Creatinine 0.78 Estimated GFR Greater than 89 Random Glucose 95 Calcium 7.5 L D Magnesium 1.6 Antibody Screen Positive H Ab Screen Tube Method Negative Microbiology 06/06/18 14:05 Blood - Peripheral Aerobic Blood Culture - Preliminary No growth in 2 days 06/06/18 14:05 Blood - Peripheral Anaerobic Blood Culture - Preliminary No growth in 2 days 06/06/18 14:15 Blood - Peripheral Aerobic Blood Culture - Preliminary No growth in 2 days 06/06/18 14:15 Blood - Peripheral Anaerobic Blood Culture - Preliminary No growth in 2 days - Procedures EGD/EUS Assessment and Plan - Assessment (1) GI (gastrointestinal bleed) Code(s): K92.2 - Gastrointestinal hemorrhage, unspecified Status: Acute (2) Anemia Code(s): D64.9 - Anemia, unspecified Status: Acute (1) GI (gastrointestinal bleed) Qualifiers: GI bleed type/associated pathology: melena Qualified Code(s): K92.1 - Melena (2) Anemia Qualifiers: Anemia type: unspecified type Qualified Code(s): D64.9 - Anemia, unspecified
[2018-06-08] MEDS ORDERED: Potassium Chloride 25 MEQ Effervescent Tablet PO ONE (21:30)
[2018-06-08] MEDS: Potassium Chlor 10 mEq Premix 10 MEQ/100 ML PIGGYBACK IV.SIG SCH (22:04)
[2018-06-09] MEDS: Potassium Chlor 10 mEq Premix 10 MEQ/100 ML PIGGYBACK IV.SIG SCH (01:46)
[2018-06-09 05:32] LABS: Calcium 7.3 mg/dL (8.5-10.1); Carbon Dioxide 29.1 meq/L (21.0-32.0); Potassium 3.3 meq/L (3.5-5.1)
[2018-06-09 05:44] LABS: Total Protein 4.6 g/dL (6.4-8.2)
--- NOTE | 2018-06-09 09:13 | P.DS ---
Date of admission: 06/06/18 16:34 Primary care physician: PROVIDER NON STAFF Brief History from admission: Patient is a 63-year-old male recently Diagnosed with esophageal cancer pathology came out poorly differentiated differentiated adenocarcinoma. Patient was admitted sometime in April here because of a right foot hallux gangrene that ended up having amputated on May 10. Patient was discharged on Plavix and aspirin. At that time also had some GI symptoms and anemia and an EGD was done then on the which showed esophageal cancer with poorly differentiated adenocarcinoma. Patient was sent home on PPI and iron. A colonoscopy shows diverticulosis. Patient was brought in by his very good friend as he was noted to be pale for the past 2-3 days. Yesterday evening started vomiting previously ingested food bilious in color and noted black stools on almost on a daily basis. Patient is on iron pills. Because of increasing weakness he was brought in here and was noted to have a hemoglobin of 6.1. Patient also while down here complaining of some chest discomfort for a few seconds with no diaphoresis. The EKG shows no sign normal sinus rhythm and troponin was negative. While patient was being cleaned up by staff was noted to have lots of melanotic stools. Patient admitted for further evaluation and management. DS: Diagnosis - Discharge Diagnosis (1) GI (gastrointestinal bleed) Status: Acute (2) Anemia Status: Acute DS: Summary Hospital Course: Clinical update at discharge: Patient is in bed he appears in not acute distress. Eating well. Had a normal bowel movement in the morning. No nausea or vomiting. No chest pain or shortness of breath. No abdominal pain. Physical Exam GENERAL: Cachectic male 63 yo in bed, appears in nad CARDIOVASCULAR: Regular rate and rhythm without murmurs, gallops, or rubs. RESPIRATORY: Breath sounds equal bilaterally. No accessory muscle use. GASTROINTESTINAL: Abdomen soft, non-tender, nondistended. MUSCULOSKELETAL: No cyanosis, or edema. BACK: Nontender without obvious deformity. No CVA tenderness. 63-year-old male presenting with generalized weakness secondary to severe anemia Severe anemia with hemoglobin of 6.1 with reported melanotic stools guaiac positive. 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 -Dw Dr. Marie from oncology service, patient will be seen in the outpatient setting. He will need chemotherapy prior to surgery -Improved anemia status post packed RBC. Keep hemoglobin at least 8 -Tolerated EGD/EUS. Continue PPI. History of peripheral artery disease Status post amputation of the right great hallux May 10 -monitor foot- with some swelling but no signs of infection- -Hold off on Plavix and aspirin now with severe anemia. -Follow-up with Dr. Ly in 3 weeks-which should be around this week from discharge from May 11 -If any issues arise from the amputation site patient is known to Dr. Sommers Chest pain. Patient denies having chest pain. He was having epigastric discomfort from vomiting History of HTN - Patient ruled out for NV - With history of hypertension and peripheral artery disease patient has likelihood of possible underlying coronary disease. - We will consider doing a myocardial perfusion stress test which can be done outpatient History of hypertension. Uncontrolled. -Restart clonidine History of hyperlipidemia. Continue on atorvastatin 40 mg daily. DVT prophylaxis. Hold off on chemical prophylaxis with severe anemia SCD Patient improved cleared by consultants for discharge. To follow-up as outpatient with PCP and consultants. - Time Spent with Patient Total time spent providing and/or coordinating discharge services: - Quality: VTE Deep Vein Thrombosis/Pulmonary Embolism Present on Admission: No Exam Vital signs: Vital Signs 06/08/18 12:00 06/08/18 16:00 06/08/18 20:00 Temperature 98 F 97.9 F 98.5 F Pulse Rate 69 72 72 Respiratory Rate 18 Blood Pressure 155/69 H 145/65 H 155/70 H Pulse Oximetry 98 98 96 06/08/18 20:08 06/09/18 00:00 06/09/18 00:15 Temperature 98.3 F Pulse Rate 66 63 57 L Respiratory Rate 18 Blood Pressure 137/64 Pulse Oximetry 97 06/09/18 04:00 Temperature 97.9 F Pulse Rate 62 Respiratory Rate 18 Blood Pressure 162/69 H Pulse Oximetry 96 Intake & Output 06/08/18 06/09/18 06/09/18 18:59 06:59 18:59 Intake Total 200 / 200 Balance 200 / 200 Weight 67.1 kg Intake: IV 200 / 200 KCl 10 mEq Premix Inj 10 meq In 200 / 200 100 ml @ 100 mls/hr IV.SIG Q1H YONY Rx#:[id number] Other: Date of Last Bowel Movement 06/07/18 06/08/18 Results Procedures completed during hospitalization: EGD/EUS Labs on day of discharge: Labs from last 24 hours 06/09/18 04:43 Sodium 146 H Potassium 3.3 L Chloride 112 H Carbon Dioxide 29.1 Anion Gap 5 BUN 8 Creatinine 0.87 Estimated GFR 89 Random Glucose 107 H Calcium 7.3 L* Prot Corrected Calcium 8.7 Total Protein 4.6 L D Preliminary micro results at discharge 06/06/18 14:05 Aerobic Blood Culture - Preliminary Blood - Peripheral No growth in 2 days Anaerobic Blood Culture - Preliminary No growth in 2 days 06/06/18 14:15 Aerobic Blood Culture - Preliminary Blood - Peripheral No growth in 2 days Anaerobic Blood Culture - Preliminary No growth in 2 days - Impressions ITS Impressions Chest X-Ray 06/06/18 13:47 CONCLUSION: Negative examination. Head CT 06/06/18 14:12 CONCLUSION: Discharge Plan - Discharge Disposition Patient Disposition: 01 Discharge Home - Discharge Condition Condition: Stable - Discharge Order Discharge Orders: Discharge Order (Routine); Ordered 06/09/18 Ordered By: Courtney Emanuel - Discharge Details Anticipated Discharge Date: 06/09/18 - Physicians Team Primary Care Provider: NON STAFF,PROVIDER Attending Provider: Courtney Emanuel Other Providers: Ildefonso Mckeon MD
[2018-06-09] MEDS: Pantoprazole Sodium 20 MG DR Tablet PO SCH (10:21)
== END 2018-06-09 11:22 | disposition home or self-care (01) ==
LOC: NEPE 10:50 → NEDA 16:34 → NEDH 23:55 → NEPFCDU 06-07 00:47 → HCIN 06-07 15:27
PROVIDERS: ADMIT Hospitalist; ATTEND Hospitalist

== ENCOUNTER 2018-10-30 13:04 | Inpatient (IN) ==
[2018-10-30] MEDS ORDERED: Sod Chloride 0.9% Inj 1,000 ML IV.SIG ONE (14:52)
[2018-10-30 15:06] LABS: Baso % (Auto) 0.5 % (0.0-2.0); Eos # (Auto) 0.1 th/mm3 (0.0-0.4); Eos % (Auto) 1.5 % (0.0-4.0); Hematocrit 40.7 % (39.0-51.0); Hemoglobin 13.4 gm/dL (13.0-17.0); Lymph # (Auto) 0.9 th/mm3 (1.0-4.8); Lymph % (Auto) 16.7 % (9.0-44.0); Mean Corpuscular HGB Conc 33.1 % (32.0-36.0); Mean Corpuscular Hemoglobin 29.8 pg (27.0-34.0); Mean Corpuscular Volume 90.1 fL (80.0-100.0); Mean Platelet Volume 8.6 fL (7.0-11.0); Mono # (Auto) 0.9 th/mm3 (0.0-0.9); Neut # (Auto) 3.2 th/mm3 (1.8-7.7); Neut % (Auto) 63.3 % (16.0-70.0); Platelet Count 170 th/mm3 (150-450); Red Blood Count 4.51 mil/mm3 (4.50-5.90); White Blood Count 5.1 th/mm3 (4.0-11.0)
[2018-10-30 15:26] LABS: Alanine Aminotransferase 29 U/L (12-78); Albumin 3.4 g/dL (3.4-5.0); Anion Gap 7 meq/L (5-15); Aspartate Aminotransferase 25 U/L (15-37); Blood Urea Nitrogen 20 mg/dL (7-18); Carbon Dioxide 28.6 meq/L (21.0-32.0); Chloride 103 meq/L (98-107); Glomerular Filtration Rate 79 mL/min (>89); Glucose,Random 108 mg/dL (74-106); Lipase 156 U/L (73-393); Potassium 4.3 meq/L (3.5-5.1); Sodium 139 meq/L (136-145)
[2018-10-30 15:29] LABS: Alkaline Phosphatase 93 U/L (45-117); Total Protein 7.7 g/dL (6.4-8.2)
--- NOTE | 2018-10-30 15:43 | XR ---
EXAM DATE: 10/30/2018 3:35 PM EST AGE/SEX: 63 years / Male INDICATIONS: Dysphagia. Vomiting. CLINICAL DATA: This is the patient's initial encounter. Patient reports that signs and symptoms have been present for 1 day and indicates a pain score of 0/10. MEDICAL/SURGICAL HISTORY: Carcinoma, esophageal. smokes . radiation and chemotherapy for esoph ageal ca. COMPARISON: C, CHEST 1V SINGLE AP, 06/06/2018. . FINDINGS: A single AP view of the chest demonstrates the lungs to be symmetrically aerated without evidence of mass, infiltrate or effusion. Right IJ Kasiik-t-Xhdd catheter with the tip projecting over the centr al venous system. The cardiomediastinal contours are unremarkable. Osseous structures are intact. CONCLUSION: 1. Interval placement of a right IJ Ecakdv-h-Kwru catheter with the tip projecting over the central venous system. 2. Otherwise, no acute cardiopulmonary process. Electronically signed by: Vijay Jasmine MD Board Certified Radiologist 10/30/2018 3:42 PM EST
--- NOTE | 2018-10-30 16:14 | ED ---
HPI General Chief complaint: Weakness Stated complaint: Vomiting/Fever Time Seen by Provider: 10/30/18 14:45 Source: patient Mode of arrival: ambulatory Limitations: no limitations History of Present Illness HPI narrative: Patient is a 63-year-old male presenting to the [facility] department for evaluation of dysphasia. Patient's states it started last Monday, patient reports that he is unable to swallow any solid foods that he is only able to take sips of water. Patient just completed 30 rounds of radiation. His states that he had a temperature of 100 degrees today. Patient denies any nausea, abdominal pain, chest pain, fevers, chills, fatigue. Patient's history is significant for esophageal cancer, peripheral artery disease, hypertension, hyperlipidemia. He is a current daily tobacco user, his states that he last drank alcohol a few days ago. Patient denies any history of esophageal varices. He denies any hematemesis. Symptom onset was gradual, symptoms are moderate. Onset (ago): week(s) (1) Radiation: non-radiation Related Data Home Medications Medication Instructions Recorded Confirmed atorvastatin 40 mg PO DAILY 06/06/18 10/30/18 clonidine HCl 0.1 mg PO BID 06/06/18 10/30/18 clopidogrel 75 mg PO DAILY 06/06/18 10/30/18 ferrous sulfate [iron] 325 mg PO DAILY 06/06/18 10/30/18 lisinopril 20 mg PO DAILY 06/06/18 10/30/18 pantoprazole 30 mg PO DAILY 06/06/18 10/30/18 Allergies Allergy/AdvReac Type Severity Reaction Status Date / Time No Known Allergies Allergy Verified 10/30/18 14:28 Review of Systems ROS: all other systems reviewed are negative ON LICENSE OF [facility] Medical History Medical History Amputated great toe of right foot (Acute) Anemia (Acute) Bypass graft stenosis (Acute) FH: chemotherapy (Acute) FH: radiation therapy (Acute) GERD (gastroesophageal reflux disease) (Acute) HTN (hypertension) (Acute) High cholesterol (Acute) Throat cancer (Acute) Surgical History Surgical History S/P surgical manipulation of ankle joint (Acute) Social History Social History Substance History: No History of Abuse Second Hand Smoke Exposure: No Smoking Status: Current every day smoker Tobacco Type: Cigarettes How Often Do You Have a Drink Containing Alcohol: Monthly or less Recent Travel in [facility] within the Last 8 Weeks: No Recent Out of Country Travel within the Last 8 Weeks: No Immunization History Tetanus Immunization: >5 Years Exam Narrative Exam Narrative: GENERAL: Well-developed, well-nourished, alert male. Presenting in no acute distress. SKIN: Focused skin assessment warm/dry. HEAD: Atraumatic. Normocephalic. EYES: Pupils equal and round. No scleral icterus. No injection or drainage. ENT: No nasal bleeding or discharge. Mucous membranes pink and moist. Uvula midline, airway is patent. NECK: Trachea midline. No JVD. CARDIOVASCULAR: Tachycardic. No murmur appreciated. RESPIRATORY: No accessory muscle use. Clear to auscultation. Breath sounds equal bilaterally. GASTROINTESTINAL: Abdomen soft, non-tender, nondistended. Hepatic and splenic margins not palpable. MUSCULOSKELETAL: No obvious deformities. No clubbing. No cyanosis. No edema. NEUROLOGICAL: Awake and alert. No obvious cranial nerve deficits. Motor grossly within normal limits. Normal speech. PSYCHIATRIC: Appropriate mood and affect; insight and judgment normal. Course Initial Documented Vital Signs Temperature 98.8 F 10/30/18 13:41 Pulse Rate 140 H 10/30/18 13:41 Respiratory Rate 20 10/30/18 13:41 Blood Pressure 105/52 L 10/30/18 13:41 Pulse Oximetry 99 10/30/18 13:41 Last Documented Vital Signs Temperature 98.8 F 10/30/18 13:41 Pulse Rate 84 10/30/18 18:18 Respiratory Rate 20 10/30/18 14:24 Blood Pressure 139/61 10/30/18 14:24 Pulse Oximetry 98 10/30/18 14:24 Medical Decision Making MDM Narrative Medical decision making narrative: Patient is a well-appearing 63-year-old male status post radiation for esophageal cancer presenting with 1 week of progressive dysphasia with solid foods. Labs and imaging ordered and pending. Patient will be given 1 L of IV fluids now. Chest x-ray shows no acute disease, CBC with no acute findings, chemistry with BUN of 20 otherwise unremarkable. Discussed with Dr. Barebr who recommended Barium swallow and follow up with GI. Barium swallow showed narrowing at the area of the cancer. Patient vomited upon return to the room after the barium swallow. He was given Zofran for this. Patient will be admitted for intractable vomiting, dysphagia, esophageal cancer. Discussed with Dr. Montelongo who accepted admission. Admit orders placed. Patient is agreeable. Medical Screen Exam Complete: Yes Emergency Medical Condition: Yes Lab Data Lab results reviewed: Yes I reviewed the patient's lab results. Result diagrams: 10/30/18 15:00 10/30/18 15:00 Lab Results 10/30/18 10/30/18 Range/Units 15:00 15:00 WBC 5.1 (4.0-11.0) th/mm3 RBC 4.51 (4.50-5.90) mil/mm3 Hgb 13.4 (13.0-17.0) gm/dL Hct 40.7 (39.0-51.0) % MCV 90.1 (80.0-100.0) fL MCH 29.8 (27.0-34.0) pg MCHC 33.1 (32.0-36.0) % RDW 18.0 H (11.6-17.2) % Plt Count 170 (150-450) th/mm3 MPV 8.6 (7.0-11.0) fL Prelim Diff (Auto) Slide review pending Neut % (Auto) 63.3 (16.0-70.0) % Lymph % (Auto) 16.7 (9.0-44.0) % [facility] % (Auto) 18.0 H (0.0-8.0) % Eos % (Auto) 1.5 (0.0-4.0) % Baso % (Auto) 0.5 (0.0-2.0) % Neut # (Auto) 3.2 (1.8-7.7) th/mm3 Lymph # (Auto) 0.9 L (1.0-4.8) th/mm3 [facility] # (Auto) 0.9 (0.0-0.9) th/mm3 Eos # (Auto) 0.1 (0.0-0.4) th/mm3 Baso # (Auto) 0.0 (0.0-0.2) th/mm3 WBC Differential . Diff Scan Auto diff confirmed Differential Comment . Sodium 139 (136-145) meq/L Potassium 4.3 (3.5-5.1) meq/L Chloride 103 (98-107) meq/L Carbon Dioxide 28.6 (21.0-32.0) meq/L Anion Gap 7 (5-15) meq/L BUN 20 H (7-18) mg/dL Creatinine 0.96 (0.60-1.30) mg/dL Estimated GFR 79 L (>89) mL/min Random Glucose 108 H (74-106) mg/dL Calcium 9.0 (8.5-10.1) mg/dL Magnesium 2.0 (1.5-2.5) mg/dL Total Bilirubin 0.3 (0.2-1.0) mg/dL AST 25 (15-37) U/L ALT 29 (12-78) U/L Alkaline Phosphatase 93 (45-117) U/L Total Protein 7.7 (6.4-8.2) g/dL Albumin 3.4 (3.4-5.0) g/dL Lipase 156 (73-393) U/L Imaging Data Radiologist's impression: Chest X-Ray 10/30/18 14:52 CONCLUSION: 1. Interval placement of a right IJ Yjzcff-f-Klpa catheter with the tip projecting over the central venous system. 2. Otherwise, no acute cardiopulmonary process. Barium Swallow X-Ray 10/30/18 16:14 CONCLUSION: Somewhat irregular narrowing of the distal esophagus measuring approximately 6 mm in greatest diameter consistent with the patient's known esophageal carcinoma. Barium does pass through this narrowed area into the stomach. No extravasation is noted. Discharge Plan Discharge Disposition Patient Disposition: ED Admit(ED Internal Use Only) Discharge Condition Condition: Stable Discharge Order Discharge Orders: ED Use Only Admit Order (Routine); Ordered 10/30/18 Ordered By: Roseann Carranza Discharge Details Diagnosis: Esophageal cancer, Vomiting, Dysphagia Physicians Team ED Provider: eNgar Nguyen ED Midlevel Provider: Roseann Carranza Primary Care Provider: Judith Elias Attending Provider: Dereje Montelongo Status ED Status: Admitted Patient
[2018-10-30] MEDS ORDERED: Sod Chloride 0.9% Inj 1,000 ML IV.SIG SCH (16:30)
--- NOTE | 2018-10-30 17:05 | FL ---
EXAM DATE: 10/30/2018 5:00 PM EST AGE/SEX: 63 years / Male INDICATIONS: Dysphagia since having radiation therapy for esophageal lesion last week CLINICAL DATA: This is the patient's initial encounter. Patient reports that signs and symptoms have been present for 1 week and indicates a pain score of Nonresponsive. MEDICAL/SURGICAL HISTORY: . esophageal carcinoma None. COMPARISON: No prior exams available for comparison. FLUORO TIME: 1.2 IMAGE COUNT: 45 RADIATION DOSE: 996.1 mGy cm2 FINDINGS: Limited single contrast barium swallow was performed. There is evidence of somewhat irregular narrowi ng of the distal esophagus consistent with the patient's known esophageal carcinoma. Barium passes th rough this narrowed area into the stomach. The narrowed area appears to measure approximate 6 mm in g reatest diameter. No extravasation of contrast is noted. CONCLUSION: Somewhat irregular narrowing of the distal esophagus measuring approximately 6 mm in greatest diamete r consistent with the patient's known esophageal carcinoma. Barium does pass through this narrowed ar ea into the stomach. No extravasation is noted. Electronically signed by: Glenroy Capps MD Board Certified Radiologist 10/30/2018 5:03 PM EST
[2018-10-30] MEDS ORDERED: Acetaminophen 325 MG Tablet PO PRN (17:47)
[2018-10-30] MEDS: Sod Chloride 0.9% Inj 1,000 ML IV.CONT SCH ×2 (18:14→22:05)
--- NOTE | 2018-10-30 18:41 | P.HPIM ---
History of Present Illness Primary Care Physician: Judith Elias DO Chief Complaint: Difficulty Swallowing Solids History of Present Illness: Mr. Carrasco is a 63-year-old male. He has esophageal cancer and has been undergoing radiation therapy. His last radiation treatment was 10/25/2018. He comes into the emergency department tonight with dysphasia. He has been having difficulty swallowing solids including pills and food. Liquids he is able to take and will go down easily but frequently when he eats solid substance will feel lodged in the middle of his throat and he will vomit it back up later. Etiologies for this could be related to scar tissue or inflammation as he is on active radiation therapy. No other complaints tonight. No chest pain. Nausea is improved after antiemetic. Inpatient Certification Inpatient Certification: I certify that the inpatient services were ordered in accordance with Medicare regulations governing the order. This includes certification that hospital inpatient services are reasonable and necessary and in the case of services not specified as inpatient-only under 42 CFR 419.22(n), that they are appropriately provided as inpatient services in accordance to with the 2-midnight benchmark under 43 CFR 412.3(e) Estimated Total Length of Stay (Days): 3 Plans for Post Hospital Care: Home Review of Systems Constitutional: No fevers, no chills no night sweats, no fatigue, no weakness Eyes: No eye pain, no blurry vision, no loss of vision ENT: No sore throat, no ear pain, no rhinorrhea Cardiovascular: No chest pain, no tachycardia, no palpitations, no syncope Respiratory: No wheezing, no cough, no shortness of breath Gastrointestinal: No abdominal pain, no black tarry stools, no bright red blood per rectum, no vomiting, no diarrhea, dysphagia Musculoskeletal: No joint pain, no muscle cramps, no stiffness Integumentary: No rash, no ulcers, no drainage Neurologic: No sensory loss, no loss of motor function, no dizziness Psychiatric: No behavioral changes, no hallucinations, no suicidal ideations [facility] Medical History Medical History Amputated great toe of right foot (Acute) Anemia (Acute) Bypass graft stenosis (Acute) FH: chemotherapy (Acute) FH: radiation therapy (Acute) GERD (gastroesophageal reflux disease) (Acute) HTN (hypertension) (Acute) High cholesterol (Acute) Throat cancer (Acute) Surgical History Surgical History S/P surgical manipulation of ankle joint (Acute) Social History Social History Substance History: No History of Abuse Second Hand Smoke Exposure: No Smoking Status: Current every day smoker Tobacco Type: Cigarettes How Often Do You Have a Drink Containing Alcohol: Monthly or less Recent Travel in [facility] within the Last 8 Weeks: No Recent Out of Country Travel within the Last 8 Weeks: No Immunization History Tetanus Immunization: >5 Years Medications and Allergies Allergies Allergy/AdvReac Type Severity Reaction Status Date / Time No Known Allergies Allergy Verified 10/30/18 14:28 Home Medications Medication Instructions Recorded Confirmed Type atorvastatin 40 mg PO DAILY 06/06/18 10/30/18 History clonidine HCl 0.1 mg PO BID 06/06/18 10/30/18 History clopidogrel 75 mg PO DAILY 06/06/18 10/30/18 History ferrous sulfate [iron] 325 mg PO DAILY 06/06/18 10/30/18 History lisinopril 20 mg PO DAILY 06/06/18 10/30/18 History pantoprazole 30 mg PO DAILY 06/06/18 10/30/18 History Active Medications: Active Medications Acetaminophen (Tylenol) 650 mg PO Q4H PRN PRN Reason: Temp > 100.4 Al Hydroxide/Mg Hydroxide (Milk Of Magnsagrario Liq) 30 ml PO Q12H PRN PRN Reason: Mild Constipation Clopidogrel Bisulfate (Plavix) 75 mg PO DAILY [facility] Enalaprilat (Vasotec Inj) 1.25 mg IV.PUSH Q6H PRN PRN Reason: SBP>160, DBP>90 Sodium Chloride (Ns Inj) 1,000 mls @ 80 mls/hr IV.CONT .[id number] YONY Last Admin: 10/30/18 18:14 Dose: 80 mls/hr Methylprednisolone Sodium Succinate (Solumedrol Inj) 20 mg IV.PUSH Q12HR [facility] Ondansetron HCl (Zofran Inj) 4 mg IV.PUSH Q6H PRN PRN Reason: NAUSEA OR VOMITING Sodium Chloride (Ns Flush) 2 ml IV.FLUSH PRN PRN PRN Reason: FLUSH AFTER USING IV ACCESS Sodium Chloride (Ns Flush) 2 ml IV.FLUSH BID YONY Sodium Chloride (Ns Flush) 2 ml IV.FLUSH PRN PRN PRN Reason: FLUSH AFTER USING IV ACCESS Physical Exam Vital signs: Last Vital Signs Temp 98.8 F 10/30/18 13:41 Pulse 84 10/30/18 18:18 Resp 20 10/30/18 14:24 BP 139/61 10/30/18 14:24 Pulse Ox 98 10/30/18 14:24 Intake & Output 10/28/18 10/29/18 10/30/18 10/31/18 06:59 06:59 06:59 06:59 Intake Total 1999 Balance 1999 Weight 58.967 kg Narrative: GENERAL: NAD, A&Ox3 HEAD: Normocephalic. MOUTH: No evidence of abdullahi at oral cavity or pharynx NECK: Supple, trachea midline. No lymphadenopathy. EYES: No scleral icterus. No injection or drainage. CARDIOVASCULAR: Regular rate and rhythm without murmurs, gallops, or rubs. RESPIRATORY: Breath sounds equal bilaterally. No accessory muscle use. GASTROINTESTINAL: Abdomen soft, non-tender, nondistended. MUSCULOSKELETAL: No cyanosis, or edema. SKIN: Warm and dry. NEURO: No focal neurological deficits. Results Labs CBC & Chem 7: 10/30/18 15:00 10/30/18 15:00 Imaging Impressions Chest X-Ray 10/30/18 14:52 CONCLUSION: 1. Interval placement of a right IJ Jwkdeh-v-Jijt catheter with the tip projecting over the central venous system. 2. Otherwise, no acute cardiopulmonary process. Barium Swallow X-Ray 10/30/18 16:14 CONCLUSION: Somewhat irregular narrowing of the distal esophagus measuring approximately 6 mm in greatest diameter consistent with the patient's known esophageal carcinoma. Barium does pass through this narrowed area into the stomach. No extravasation is noted. Caprini VTE Risk Assessment Caprini VTE Risk Assessment: Moderate/High Risk (score >= 2) Caprini Risk Assessment Model: Point Value = 1 Point Value = 2 Point Value = 3 Point Value = 5 Age 41-60 Minor surgery BMI > 25 kg/m2 Swollen legs Varicose veins or History of unexplained or recurrent spontaneous Oral contraceptives or hormone replacement Sepsis (< 1 month) Serious lung disease, including pneumonia (< 1 month) Abnormal pulmonary function Acute myocardial infarction Congestive heart failure (< 1 month) History of inflammatory bowel disease Medical patient at bed rest Age 61-74 Arthroscopic surgery Major open surgery (> 45 min) Laparoscopic surgery (> 45 min) Malignancy Confined to bed (> 72 hours) Immobilizing plaster cast Central venous access Age >= 75 History of VTE Family history of VTE Factor V Leiden Prothrombin [id number] Lupus anticoagulant Anticardiolipin antibodies Elevated serum homocysteine Heparin-induced thrombocytopenia Other congenital or acquired thrombophilia Stroke (< 1 month) Elective arthroplasty Hip, pelvis, or leg fracture Acute spinal cord injury (< 1 month) Prophylaxis Regimen: Total Risk Factor Score Risk Level Prophylaxis Regimen 0-1 Low Early ambulation 2 Moderate Order ONE of the following: *Sequential Compression Device (SCD) *Heparin 5000 units SQ BID 3-4 Higher Order ONE of the following medications: *Heparin 5000 units SQ TID *Enoxaparin/Lovenox 40 mg SQ daily (WT < 150 kg, CrCl > 30 mL/min) *Enoxaparin/Lovenox 30 mg SQ daily (WT < 150 kg, CrCl > 10-29 mL/min) *Enoxaparin/Lovenox 30 mg SQ BID (WT < 150 kg, CrCl > 30 mL/min) AND/OR *Sequential Compression Device (SCD) 5 or more Highest Order ONE of the following medications: *Heparin 5000 units SQ TID (Preferred with Epidurals) *Enoxaparin/Lovenox 40 mg SQ daily (WT < 150 kg, CrCl > 30 mL/min) *Enoxaparin/Lovenox 30 mg SQ daily (WT < 150 kg, CrCl > 10-29 mL/min) *Enoxaparin/Lovenox 30 mg SQ BID (WT < 150 kg, CrCl > 30 mL/min) AND *Sequential Compression Device (SCD) Assessment and Plan Plan 63-year-old male admitted secondary to dysphasia with suspicion for esophageal obstruction Dysphasia Possible esophageal obstruction GI consult As patient is under active radiation to the esophagus will start steroids for possible complication of swelling No evidence of candidiasis Possible need for esophageal dilation next her tissue is in etiology Clear liquid diet for now Esophageal cancer Throat cancer Radiation therapy Chemotherapy Continue treatments and following with oncology as an outpatient This is a possible etiology for the above Hypertension Continue baseline treatment Follow blood pressures Adjust treatments as needed Hyperlipidemia Continue present treatment Follow as an outpatient History of anemia History of bypass graft Gastroesophageal reflux disease No change to baseline treatments DVT prophylaxis Heparin
[2018-10-30] MEDS: MethylPREDNISolone Sod Succinate Inj 40 MG/ML Vial IV.PUSH SCH (22:00)
[2018-10-30] MEDS: Heparin - SQ 10,000 UNITS/ML Vial SQ SCH (22:01)
[2018-10-31] MEDS: Heparin - SQ 10,000 UNITS/ML Vial SQ SCH ×2 (09:00→20:46)
--- NOTE | 2018-10-31 10:21 | P.CONGI ---
History of Present Illness Consult date: 10/31/18 Consult reason: Dysphagia Possible stricture Possible esophageal obstruction Chief complaint: Dysphagia,esphageal cancer, vomiting History of Present Illness: This patient is a 63-year-old male with past medical history significant for anemia, GERD, hypertension, hyperlipidemia and throat cancer. Surgical history significant for amputation of great toe on right foot and ankle surgery. Patient presented to [facility] emergency department with complaint of dysphagia. Patient states he does have been having difficulty swallowing solids and pills. Patient denies any painful swallowing. Patient endorses he is able to drink liquids without any difficulty. Upon consultation. Patient reports onset of dysphagia 2 weeks ago. Patient states that when he eats solid foods he feels as though he goes intermediate down into his throat and then he begins to cough and choke and then vomits. He endorses that pills go down "slowly" patient states he was diagnosed with esophageal cancer in April 2018. He states he completed chemotherapy and radiation on October 25, 2018. Patient endorses 20 pound weight loss over the last 2-3 months.Patient denies any heartburn or symptoms of acid reflux. Patient underwent barium swallow which revealed : irregular narrowing of distal esophagus, about 6 mm in greatest diameter consistent with patient's known esophageal carcinoma. Barium did not pass through the narrowed area into the stomach. Patient endorses that he presently smokes 1 pack/day and denies any use of alcohol products. Patient denies any diarrhea or constipation denies any noted bleeding in stool and states he has a normal brown soft formed bowel movement daily. Our service has been consulted to evaluate patient for dysphasia. <Rosana Montanez - Last Filed: 10/31/18 14:15> Review of Systems All other systems reviewed negative except as stated in HPI <Rosana Montanez - Last Filed: 10/31/18 14:15> PMFSH - History History Provided By: Patient - Medical History Medical History: Medical History (Last Reviewed 10/30/18 @ 16:17 by JAVIER Wagoner) Amputated great toe of right foot Anemia Bypass graft stenosis FH: chemotherapy FH: radiation therapy GERD (gastroesophageal reflux disease) HTN (hypertension) High cholesterol Throat cancer - Surgical History Surgical History: Surgical History (Last Reviewed 10/30/18 @ 16:17 by JAVIER Wagoner) S/P surgical manipulation of ankle joint - Tobacco History Second Hand Smoke Exposure: Yes Tobacco Use In Past 30 Days: Yes Smoking Status: Current every day smoker Tobacco Type: Cigarettes - Alcohol History How Often Do You Have a Drink Containing Alcohol: Monthly or less - Substance Use History Substance History: Past History - Travel History Recent Travel in the [place] Within the Last 8 Weeks: No Recent Travel Out of the Country Within the Last 8 Weeks: No - Immunization History Tetanus Immunization: <5 Years Hx Influenza Vaccine This Season: Yes <Rosana Montanez - Last Filed: 10/31/18 14:15> - Medical History Medical History: Medical History (Last Reviewed 10/30/18 @ 16:17 by JAVIER Wagoner) Amputated great toe of right foot Anemia Bypass graft stenosis FH: chemotherapy FH: radiation therapy GERD (gastroesophageal reflux disease) HTN (hypertension) High cholesterol Throat cancer - Surgical History Surgical History: Surgical History (Last Reviewed 10/30/18 @ 16:17 by JAVIER Wagoner) S/P surgical manipulation of ankle joint <Adam Paiz - Last Filed: 11/01/18 09:10> Medications and Allergies Active Medications: Active Medications Acetaminophen (Tylenol) 650 mg PO Q4H PRN PRN Reason: Temp > 100.4 Al Hydroxide/Mg Hydroxide (Milk Of Magnsagrario Liq) 30 ml PO Q12H PRN PRN Reason: Mild Constipation Clopidogrel Bisulfate (Plavix) 75 mg PO DAILY [facility] Last Admin: 10/31/18 09:30 Dose: 75 mg Enalaprilat (Vasotec Inj) 1.25 mg IV.PUSH Q6H PRN PRN Reason: SBP>160, DBP>90 Last Admin: 10/31/18 04:02 Dose: 1.25 mg Heparin Sodium (Porcine) (Heparin Inj) 5,000 units SQ Q12HR [facility] Last Admin: 10/30/18 22:01 Dose: 5,000 units Sodium Chloride (Ns Inj) 1,000 mls @ 80 mls/hr IV.CONT .[id number] [facility] Last Infusion: 10/31/18 06:14 Dose: 80 mls/hr Methylprednisolone Sodium Succinate (Solumedrol Inj) 20 mg IV.PUSH Q12HR [facility] Last Admin: 10/30/18 22:00 Dose: 20 mg Ondansetron HCl (Zofran Inj) 4 mg IV.PUSH Q6H PRN PRN Reason: NAUSEA OR VOMITING Sodium Chloride (Ns Flush) 2 ml IV.FLUSH BID [facility] Last Admin: 10/30/18 22:01 Dose: 2 ml Sodium Chloride (Ns Flush) 2 ml IV.FLUSH PRN PRN PRN Reason: FLUSH AFTER USING IV ACCESS <Rosana Montanez - Last Filed: 10/31/18 14:15> Active Medications: Active Medications Acetaminophen (Tylenol) 650 mg PO Q4H PRN PRN Reason: Temp > 100.4 Al Hydroxide/Mg Hydroxide (Milk Of Magnsagrario Liq) 30 ml PO Q12H PRN PRN Reason: Mild Constipation Clopidogrel Bisulfate (Plavix) 75 mg PO DAILY [facility] Last Admin: 10/31/18 09:30 Dose: 75 mg Enalaprilat (Vasotec Inj) 1.25 mg IV.PUSH Q6H PRN PRN Reason: SBP>160, DBP>90 Last Admin: 11/01/18 08:15 Dose: 1.25 mg Heparin Sodium (Porcine) (Heparin Inj) 5,000 units SQ Q12HR [facility] Last Admin: 10/31/18 20:46 Dose: 5,000 units Sodium Chloride (Ns Inj) 1,000 mls @ 80 mls/hr IV.CONT .[id number] [facility] Last Admin: 11/01/18 07:20 Dose: Not Given Lactated Ringer's (Lr 1000 Ml Inj) 1,000 mls @ 30 mls/hr IV.CONT .Q24H ONE Stop: 11/02/18 07:44 Sodium Chloride (Ns Inj) 500 mls @ 30 mls/hr IV.CONT .[id number] ONE Stop: 11/02/18 00:24 Methylprednisolone Sodium Succinate (Solumedrol Inj) 20 mg IV.PUSH Q12HR [facility] Last Admin: 11/01/18 08:15 Dose: 20 mg Ondansetron HCl (Zofran Inj) 4 mg IV.PUSH Q6H PRN PRN Reason: NAUSEA OR VOMITING Sodium Chloride (Ns Flush) 2 ml IV.FLUSH BID [facility] Last Admin: 11/01/18 08:15 Dose: Not Given Sodium Chloride (Ns Flush) 2 ml IV.FLUSH PRN PRN PRN Reason: FLUSH AFTER USING IV ACCESS <Adam Paiz - Last Filed: 11/01/18 09:10> Allergies Allergy/AdvReac Type Severity Reaction Status Date / Time No Known Allergies Allergy Verified 10/30/18 14:28 Home Medications Medication Instructions Recorded Confirmed Type atorvastatin 40 mg PO DAILY 06/06/18 10/30/18 History clonidine HCl 0.1 mg PO BID 06/06/18 10/30/18 History clopidogrel 75 mg PO DAILY 06/06/18 10/30/18 History ferrous sulfate [iron] 325 mg PO DAILY 06/06/18 10/30/18 History lisinopril 20 mg PO DAILY 06/06/18 10/30/18 History pantoprazole 30 mg PO DAILY 06/06/18 10/30/18 History Exam Vital signs: Vital Signs 10/30/18 13:41 10/30/18 14:24 10/30/18 18:18 Temperature 98.8 F Pulse Rate 140 H 101 H 84 Respiratory Rate 20 20 Blood Pressure 105/52 L 139/61 Pulse Oximetry 99 98 10/30/18 19:05 10/31/18 04:00 10/31/18 06:26 Temperature 97.8 F Pulse Rate 84 74 Respiratory Rate 18 20 Blood Pressure 135/60 172/70 H 150/68 H Pulse Oximetry 97 96 10/31/18 08:00 Temperature 98.4 F Pulse Rate 70 Respiratory Rate 20 Blood Pressure 137/62 Pulse Oximetry 95 Intake & Output 10/30/18 10/31/18 10/31/18 18:59 06:59 18:59 Intake Total 1999 1942 / 1942 Output Total 600 / 600 Balance 1999 1342 / 1342 Weight 58.967 kg 64.2 kg Intake: IV 1999 1500 / 1500 NS Inj 1,000 ML @ 80 mls/hr IV. 1500 / 1500 CONT .[id number] YONY Rx#:[id number] NS Inj 1,000 ML @ 1000 mls/hr 1999 IV.SIG BOLUS YONY Rx#:[id number] Oral 442 / 442 Output: Urine 600 / 600 Other: # Voids 1 Weight On Admission 60.328 kg - Constitutional no acute distress, chronically ill appearing - Routine HEENT Exam Head: Present: normocephalic ENT: Present: mucous membranes moist - Routine Neck Exam Present: supple. Absent: tenderness - Routine Respiratory Exam Present: CTA bilaterally. Absent: accessory muscle use - Routine Cardiovascular Exam Present: RRR, S1, S2 - Routine Abdominal Exam Present: soft, normoactive bowel sounds. Absent: tenderness, distended - Routine Extremities Exam Present: pulses intact. Absent: edema Comments: Amputation right foot great toe - Routine Skin Exam Present: dry, warm - Routine Neurological Exam Present: alert <TarikRosana - Last Filed: 10/31/18 14:15> Vital signs: Vital Signs 10/31/18 12:00 10/31/18 16:00 10/31/18 20:00 Temperature 98.9 F 99.1 F 98.9 F Pulse Rate 52 L 58 L 57 L Respiratory Rate 20 20 20 Blood Pressure 143/66 H 190/73 H 165/70 H Pulse Oximetry 94 L 95 96 10/31/18 22:47 11/01/18 00:00 11/01/18 00:45 Temperature 98.1 F Pulse Rate 66 Respiratory Rate 16 20 16 Blood Pressure 195/81 H Pulse Oximetry 95 11/01/18 04:00 Temperature 98.7 F Pulse Rate 57 L Respiratory Rate 20 Blood Pressure 177/74 H Pulse Oximetry 96 Intake & Output 10/31/18 11/01/18 11/01/18 18:59 06:59 18:59 Intake Total 1000 / 1000 1000 / 1000 Output Total 250 / 250 2 / 2 Balance 750 / 750 998 / 998 Weight 64.5 kg Intake: IV 1000 / 1000 1000 / 1000 NS Inj 1,000 ML @ 80 mls/hr IV. 1000 / 1000 1000 / 1000 CONT .[id number] [facility] Rx#:[id number] Output: Urine 250 / 250 2 / 2 Other: Date of Last Bowel Movement 10/31/18 <Adam Paiz - Last Filed: 11/01/18 09:10> Results - Labs CBC & Chem 7: 10/30/18 15:00 10/30/18 15:00 Labs: Laboratory Results - last 24 hr 10/30/18 10/30/18 15:00 15:00 WBC 5.1 RBC 4.51 Hgb 13.4 Hct 40.7 MCV 90.1 MCH 29.8 MCHC 33.1 RDW 18.0 H Plt Count 170 MPV 8.6 Prelim Diff (Auto) Slide review pending Neut % (Auto) 63.3 Lymph % (Auto) 16.7 [place] % (Auto) 18.0 H Eos % (Auto) 1.5 Baso % (Auto) 0.5 Neut # (Auto) 3.2 Lymph # (Auto) 0.9 L [place] # (Auto) 0.9 Eos # (Auto) 0.1 Baso # (Auto) 0.0 WBC Differential . Diff Scan Auto diff confirmed Differential Comment . Sodium 139 Potassium 4.3 Chloride 103 Carbon Dioxide 28.6 Anion Gap 7 BUN 20 H Creatinine 0.96 Estimated GFR 79 L Random Glucose 108 H Calcium 9.0 Magnesium 2.0 Total Bilirubin 0.3 AST 25 ALT 29 Alkaline Phosphatase 93 Total Protein 7.7 Albumin 3.4 Lipase 156 - Imaging Impressions Chest X-Ray 10/30/18 14:52 CONCLUSION: 1. Interval placement of a right IJ [id number]-[id number] catheter with the tip projecting over the central venous system. 2. Otherwise, no acute cardiopulmonary process. Barium Swallow X-Ray 10/30/18 16:14 CONCLUSION: Somewhat irregular narrowing of the distal esophagus measuring approximately 6 mm in greatest diameter consistent with the patient's known esophageal carcinoma. Barium does pass through this narrowed area into the stomach. No extravasation is noted. <Rosana Montanez - Last Filed: 10/31/18 14:15> - Labs CBC & Chem 7: 10/30/18 15:00 10/30/18 15:00 <Adam Paiz - Last Filed: 11/01/18 09:10> Assessment and Plan (1) Esophageal cancer Status: Acute Code(s): C15.9 - Malignant neoplasm of esophagus, unspecified (2) Dysphagia Status: Acute Code(s): R13.10 - Dysphagia, unspecified - Plan This patient is a 63-year-old male with past medical history significant for anemia, GERD, hypertension, hyperlipidemia and throat cancer. Surgical history significant for amputation of great toe on right foot and ankle surgery. Patient presented to [facility] emergency department with complaint of dysphagia. Patient states he does have been having difficulty swallowing solids and pills. Patient denies any painful swallowing. Patient endorses he is able to drink liquids without any difficulty. Upon consultation. Patient reports onset of dysphagia 2 weeks ago. Patient states that when he eats solid foods he feels as though he goes intermediate down into his throat and then he begins to cough and choke and then vomits. He endorses that pills go down "slowly" patient states he was diagnosed with esophageal cancer in April 2018. He states he completed chemotherapy and radiation on October 25, 2018. Patient endorses 20 pound weight loss over the last 2-3 months.Patient denies any heartburn or symptoms of acid reflux. Patient underwent barium swallow which revealed : irregular narrowing of distal esophagus, about 6 mm in greatest diameter consistent with patient's known esophageal carcinoma. Barium did not pass through the narrowed area into the stomach. Patient endorses that he presently smokes 1 pack/day and denies any use of alcohol products. Patient denies any diarrhea or constipation denies any noted bleeding in stool and states he has a normal brown soft formed bowel movement daily. Our service has been consulted to evaluate patient for dysphasia. Dysphagia/esophageal stricture/history of esophageal carcinoma Patient endorses 2-week history of difficulty swallowing solid foods and pills. States solid foods feel stuck in throat and then he will vomit a short while later. Patient denies any painful swallowing. Endorses 20 pound weight loss over the last 2-3 months. History of esophageal cancer with completion of radiation and chemotherapy on October 25, 2018. 10/30/2018 barium swallow reveals the following--Somewhat irregular narrowing of the distal esophagus measuring approximately 6 mm in greatest diameter consistent with the patient's known esophageal carcinoma. Barium does pass through this narrowed area into the stomach. No extravasation is noted. Plan -N.p.o.after midnight -Obtain consent for EGD -Aspiration precautions -Supportive care -Further recommendations to follow This patient has been seen by myself and Dr. Paiz and this note is written on his behalf - Attending Attestation Dr. Paiz <Rosana Montanez - Last Filed: 10/31/18 14:15> (1) Esophageal cancer Status: Acute Code(s): C15.9 - Malignant neoplasm of esophagus, unspecified (2) Dysphagia Status: Acute Code(s): R13.10 - Dysphagia, unspecified - Attending Attestation The patient is seen and examined. I agree with the above assessment and recommendations. <Adam Paiz - Last Filed: 11/01/18 09:10> <TarikRosana - Last Filed: 10/31/18 14:15> (1) Esophageal cancer Qualifiers: Malignant neoplasm of esophagus location: unspecified location Qualified Code (s): C15.9 - Malignant neoplasm of esophagus, unspecified (2) Dysphagia Qualifiers: Dysphagia type: unspecified Qualified Code(s): R13.10 - Dysphagia, unspecified <Adam Paiz - Last Filed: 11/01/18 09:10> (1) Esophageal cancer Qualifiers: Malignant neoplasm of esophagus location: unspecified location Qualified Code (s): C15.9 - Malignant neoplasm of esophagus, unspecified (2) Dysphagia Qualifiers: Dysphagia type: unspecified Qualified Code(s): R13.10 - Dysphagia, unspecified
[2018-10-31] MEDS: Sod Chloride 0.9% Inj 1,000 ML IV.CONT SCH ×2 (11:29→23:01)
[2018-10-31] MEDS: MethylPREDNISolone Sod Succinate Inj 40 MG/ML Vial IV.PUSH SCH ×2 (11:29→20:45)
--- NOTE | 2018-10-31 12:29 | P.PNIM ---
Subjective Interval history: Patient has been on liquid diet, no complaints on this diet. Nausea has resolved. Physical Exam Vital signs: Last Vital Signs Temp 98.4 F 10/31/18 08:00 Pulse 70 10/31/18 08:00 Resp 20 10/31/18 08:00 BP 137/62 10/31/18 08:00 Pulse Ox 95 10/31/18 08:00 Intake & Output 10/29/18 10/30/18 10/31/18 11/01/18 06:59 06:59 06:59 06:59 Intake Total 3942 / 3942 1000 / 1000 Output Total 600 / 600 Balance 3342 / 3342 1000 / 1000 Weight 64.2 kg Narrative: GENERAL: NAD, A&Ox3 HEAD: Normocephalic. MOUTH: No evidence of abdullahi at oral cavity or pharynx NECK: Supple, trachea midline. No lymphadenopathy. EYES: No scleral icterus. No injection or drainage. CARDIOVASCULAR: Regular rate and rhythm without murmurs, gallops, or rubs. RESPIRATORY: Breath sounds equal bilaterally. No accessory muscle use. GASTROINTESTINAL: Abdomen soft, non-tender, nondistended. MUSCULOSKELETAL: No cyanosis, or edema. SKIN: Warm and dry. NEURO: No focal neurological deficits. Results Labs CBC & Chem 7: 10/30/18 15:00 10/30/18 15:00 Imaging Imaging: Impressions Chest X-Ray 10/30/18 14:52 CONCLUSION: 1. Interval placement of a right IJ [id number]-[id number] catheter with the tip projecting over the central venous system. 2. Otherwise, no acute cardiopulmonary process. Barium Swallow X-Ray 10/30/18 16:14 CONCLUSION: Somewhat irregular narrowing of the distal esophagus measuring approximately 6 mm in greatest diameter consistent with the patient's known esophageal carcinoma. Barium does pass through this narrowed area into the stomach. No extravasation is noted. Assessment and Plan (1) Esophageal cancer: Code(s): C15.9 - Malignant neoplasm of esophagus, unspecified Status: Acute (2) Dysphagia: Code(s): R13.10 - Dysphagia, unspecified Status: Acute Plan 63-year-old male admitted secondary to dysphasia with suspicion for esophageal obstruction EGD pending for today. Depending on the findings on the EGD may advance diet after EGD. Continue steroids for possible inflammatory etiology. If balloon dilation is necessary patient may not need steroids as a treatment. Dysphasia Possible esophageal obstruction GI consult As patient is under active radiation to the esophagus will start steroids for possible complication of swelling No evidence of candidiasis Possible need for esophageal dilation next her tissue is in etiology Clear liquid diet for now Esophageal cancer Throat cancer Radiation therapy Chemotherapy Continue treatments and following with oncology as an outpatient This is a possible etiology for the above Hypertension Continue baseline treatment Follow blood pressures Adjust treatments as needed Hyperlipidemia Continue present treatment Follow as an outpatient History of anemia History of bypass graft Gastroesophageal reflux disease No change to baseline treatments DVT prophylaxis Heparin Progress Note: Quality VTE Deep Vein Thrombosis/Pulmonary Embolism Present on Admission: No _ (1) Esophageal cancer Qualifiers: Malignant neoplasm of esophagus location: unspecified location Qualified Code (s): C15.9 - Malignant neoplasm of esophagus, unspecified (2) Dysphagia Qualifiers: Dysphagia type: unspecified Qualified Code(s): R13.10 - Dysphagia, unspecified
[2018-11-01] MEDS: Sod Chloride 0.9% Inj 1,000 ML IV.CONT SCH (07:20)
[2018-11-01] MEDS ORDERED: Sodium Chlor 0.9% Inj 500 ML IV.CONT ONE (07:45)
[2018-11-01] MEDS ORDERED: Metoprolol Tartrate 25 MG Tablet PO ONE (07:45)
[2018-11-01] MEDS ORDERED: Chlorhexidine Gluconate 2% 1 Pack (2 Cloths) TOPICAL ONE (07:45)
[2018-11-01] MEDS: MethylPREDNISolone Sod Succinate Inj 40 MG/ML Vial IV.PUSH SCH (08:15)
--- NOTE | 2018-11-01 09:35 | P.PCN ---
Date of procedure: 11/01/18 Pre-op diagnosis: Dysphagia with history of esophageal cancer Post-op diagnosis: other (Esophageal stricture distal esophagus) Procedure: Indication; Dysphagia, history of esophageal cancer post radiation and chemotherapy Procedure Performed; upper endoscopy with biopsy and Savary Dilation After informing the patient about procedure and possible complications consent was signed. history and physical were updated. Patient was taken to the procedure room and placed in position. Time out was completed. Adequate sedation was performed by anesthesia provider. Upper Endoscopy, the scope was placed in the mouth advanced under video guide to the second portion of the duodenum, then the scope was withdrawal to the stomach and retro-flexion was performed, the scope was withdrawal to the esophagus then out of the mouth without any immediate complication Findings: Esophagus: Stricture with friable mucosa from 38 to 40 cm. Stricture was dilated to 18 mm with Savary dilator using standard technique. Biopsies obtained from area of stricture and proximal to stricture for histopathology. Stomach: Atrophic appearing mucosa throughout stomach. Retroflex revealed a 3 cm hiatal hernia. Biopsy in gastric body for histopathology. Duodenum: Bulb to 2nd portion normal. Impression: 1- Stricture appears to be scar tissue from area of prior esophageal cancer secondary to treatment with radiation/chemotherapy. Recommendations: 1- Supportive care 2- ok to transfer to recovery area then discharge per protocol 3- Clear liquids for 24 hours. Then advance as tolerated. 4- high-fiber diet 5- EGD with 5 cm stent can be performed for recurrent dysphagia and depending upon results of pathology from biopsies of the stricture. If malignant cells seen then would proceed with stenting otherwise stent or redilate as needed. 6- Avoid NSAIDS and anticoagulants for 5 days. Surgeon: Adam Paiz Pathology: other (Gastric body, distal esophagus at stricture, 36 cm above stricture, 30 cm in esophagus) Condition: stable Disposition: floor
[2018-11-01 09:51] VITALS: O2SAT 97
[2018-11-01 14:41] VITALS: BP 180/81; PULSE 57; RESP 20; TEMP 97.8
--- NOTE | 2018-11-01 14:52 | P.PNIM ---
Subjective Interval history: No nausea, vomiting, or pain. Status post EGD. Evidenc of scar tisue related to radiation therapy on EGD. No new complaints. Physical Exam Vital signs: Last Vital Signs Temp 97.8 F 11/01/18 12:00 Pulse 57 L 11/01/18 12:00 Resp 20 11/01/18 12:00 BP 180/81 H 11/01/18 12:00 Pulse Ox 97 11/01/18 12:00 Intake & Output 10/30/18 10/31/18 11/01/18 11/02/18 06:59 06:59 06:59 06:59 Intake Total 3942 / 3942 1999 / 1999 200 / 200 Output Total 600 / 600 252 / 252 500 / 500 Balance 3342 / 3342 1748 / 1748 -300 / -300 Weight 64.2 kg 64.5 kg Narrative: GENERAL: NAD, A&Ox3 HEAD: Normocephalic. MOUTH: No evidence of abdullahi at oral cavity or pharynx NECK: Supple, trachea midline. No lymphadenopathy. EYES: No scleral icterus. No injection or drainage. CARDIOVASCULAR: Regular rate and rhythm without murmurs, gallops, or rubs. RESPIRATORY: Breath sounds equal bilaterally. No accessory muscle use. GASTROINTESTINAL: Abdomen soft, non-tender, nondistended. MUSCULOSKELETAL: No cyanosis, or edema. SKIN: Warm and dry. NEURO: No focal neurological deficits. Results Labs CBC & Chem 7: 10/30/18 15:00 10/30/18 15:00 Assessment and Plan (1) Esophageal cancer: Code(s): C15.9 - Malignant neoplasm of esophagus, unspecified Status: Acute (2) Dysphagia: Code(s): R13.10 - Dysphagia, unspecified Status: Acute Plan 63-year-old male admitted secondary to dysphasia with suspicion for esophageal obstruction Status post EGD. Doing well post procedure. No complaints. Tolerated liquids. Dysphasia Possible esophageal obstruction GI following As patient is under active radiation to the esophagus will start steroids for possible complication of swelling No evidence of candidiasis Advance diet as tolerated Esophageal cancer Throat cancer Radiation therapy Chemotherapy Continue treatments and following with oncology as an outpatient This is a possible etiology for the above Hypertension Continue baseline treatment Follow blood pressures Adjust treatments as needed Hyperlipidemia Continue present treatment Follow as an outpatient History of anemia History of bypass graft Gastroesophageal reflux disease No change to baseline treatments DVT prophylaxis Heparin Progress Note: Quality VTE Deep Vein Thrombosis/Pulmonary Embolism Present on Admission: No _ (1) Esophageal cancer Qualifiers: Malignant neoplasm of esophagus location: unspecified location Qualified Code (s): C15.9 - Malignant neoplasm of esophagus, unspecified (2) Dysphagia Qualifiers: Dysphagia type: unspecified Qualified Code(s): R13.10 - Dysphagia, unspecified
--- NOTE | 2018-11-01 17:23 | ECG ---
Date Performed: 10/31/2018 Time Performed: 13:24:45 PTAGE: 63 years EKG: SINUS BRADYCARDIA WITH SINUS ARRHYTHMIA LEFT ANTERIOR FASCICULAR BLOCK ABNORMAL ECG Compare d to PREVIOUS TRACING , axis somewhat more leftward and heart rate is slower. PREVIOUS TRACING : 06/06/2018 14.10 DOCTOR: Flaco Ordoñez Interpretating Date/Time 11/01/2018 17:23:04
== END 2018-11-01 16:40 | disposition home or self-care (01) ==
LOC: NEPC 13:04 → NEDA 17:41 → N05 19:33
PROVIDERS: ADMIT Hospitalist; ATTEND Hospitalist